=== PATIENT | female | born 1955 | race Caucasian/White ===

== ENCOUNTER → 2016-05-16 | Outpatient (CLI) | payer OTHER | END | disposition home or self-care (01) | LOC: DBWHC3 12:56 | PROVIDERS: ATTEND Family Medicine ==

== ENCOUNTER → 2016-05-17 | Outpatient (CLI) | payer OTHER ==
--- NOTE | 2016-05-23 09:17 | MM ---
Reason for exam: screening (asymptomatic). Last mammogram was performed 2 years and 3 months ago. History: Patient history of other cancer. Family history of breast cancer in maternal grandmother. Physical Findings: A clinical breast exam by your physician is recommended on an annual basis and results should be correlated with mammographic findings. MG 3D Screening Mammo W/Cad Bilateral CC and MLO view(s) were taken. Prior study comparison: February 10, 2014, mammogram, performed at [facility]. November 16, 2011, mammogram, performed at [facility]. The breast tissue is heterogeneously dense. This may lower the sensitivity of mammography. Benign calcifications. There is no discrete abnormality. No significant changes when compared with prior studies. ASSESSMENT: Benign, BI-RAD 2 RECOMMENDATION: Routine screening mammogram of both breasts in 1 year.
== END ==
LOC: RADMAMWWP 13:54 → MERGE 14:00 → EDBD 14:00
PROVIDERS: ATTEND Family Medicine
DX: Z12.31 Encounter for screening mammogram for malignant neoplasm of breast (principal)
CPT/HCPCS: 77063; G0202

== ENCOUNTER → 2017-06-13 | Outpatient (CLI) | payer BC ==
--- NOTE | 2017-06-13 18:32 | CONS ---
CONSULTATION REASON FOR CONSULTATION: Sleep apnea. This is a 62-year-old female patient with an established diagnosis of obstructive sleep apnea more than 10 years ago. Her sleep study was done at [facility]. She used to live in [place] and she used to see a sleep specialist out of [facility]. The patient relocated herself to the [place] area and is trying to establish herself with a physician in [place]. She has a Respironics CPAP unit which is set at a pressure of 8 cm of water. She is using a ComfortGel Blue nose mask. She is averaging 4 hours and 18 minutes of CPAP use every night. She is compliant and she wears it every night. Her machine is functional and she seems to be benefitting from the treatment, as the patient wakes up refreshed and alert during the day. She is currently retired. She goes to bed around 11 p.m. and wakes up at 7 a.m. in the morning. She is averaging around 7-1/2 hours of sleep per night. She does not have any major hypersomnia or sleepiness during the day. Montague score is 10. No recent weight gain or weight loss. She wakes up a few times in the middle of the night to urinate. Otherwise no other complaints for now. Her blood pressure was noted to be elevated; however, the patient denies having any history of blood pressure, nor does she take any anti-hypertensive medication. She has depression and neuropathy, for which she is on a combination of Wellbutrin and Neurontin. PAST MEDICAL HISTORY: 1. GRACE diagnosed back in 2005. The patient gets her CPAP supplies through [employer]. 2. Depression. 3. Peripheral neuropathy. 4. Obesity. PAST SURGICAL HISTORY: 1. Hysterectomy. 2. Appendectomy. DRUG ALLERGIES: NOT KNOWN. OUTPATIENT MEDICATION LIST: Outpatient medication list includes Wellbutrin and Neurontin. SOCIAL HISTORY: The patient is a nonsmoker. No history of alcoholism. No history of IV drugs. FAMILY HISTORY: Negative for sleep apnea. REVIEW OF SYSTEMS: Twelve-point review of systems was done. The positive findings are all mentioned above in the history of present illness. No snoring while on CPAP. No issues with insomnia. No grinding of the teeth. No sleepwalking. No dry mouth. The patient has eliminated her humidification chamber that is attached to her CPAP machine. No anxiety or panic attacks. No palpitation. No restlessness in the lower extremities. No sleeptalking. No anxiety. No sexual dysfunction. No claustrophobia. No sleep paralysis. No hallucinations. No cataplexy. No issues with anemia. No issues with fibromyalgia, stroke, epilepsy or seizure activity. No sinus disease. PHYSICAL EXAMINATION: BP is 193/86, pulse 88, respirations 16, temperature 98.0, saturation 98% on room air. Weight is 202. Height is 5 feet 1 inch. BMI 38.3. Montague score is 10. GENERAL APPEARANCE: Calm, comfortable. No acute distress. Head is atraumatic, normocephalic. NECK: Supple. There is no JVD. No goiter or neck mass. Mallampati class 3. LUNGS: Clear to auscultation. HEART: Heart sounds are regular rate and rhythm. Normal S1, S2. No S3, S4. No murmurs. ABDOMEN: Soft, nontender. No organomegaly. EXTREMITIES: No edema. No cyanosis or clubbing. NEUROLOGICAL: Awake and alert x3. There is no focal neurological deficit. PSYCHIATRIC: The patient has appropriate mood and affect. IMPRESSION: 1. Obstructive sleep apnea, currently on CPAP with a pressure of 8 cm of water, with excellent clinical response and compliance. Utilizing a ComfortGel nose mask. 2. Hypertension. Blood pressure is quite elevated. Rule out white coat effect. Needs to be followed up on an outpatient basis through her primary care physician. 3. Obesity with body mass index of 8.3. 4. Hypersomnia, improved while on CPAP therapy. 5. Depression. 6. Peripheral neuropathy. PLAN: 1. Encourage further weight loss. 2. Optimize sleep hygiene measures. 3. Offer this patient an AirFit N20 nose mask. 4. Continue using the current CPAP unit at the same level of pressure. 5. Implement good sleep hygiene measures. 6. Follow up with primary care physician regarding blood pressure. 7. Will contact me back should there be any issues with her sleep apnea treatment in the future; otherwise I will see her back in a year's time. MMODL / IJN: [id number] /
== END | disposition home or self-care (01) ==
LOC: SLEEP 16:04
PROVIDERS: ATTEND Internal Medicine Critical Care Medicine
DX: G47.33 Obstructive sleep apnea (adult) (pediatric) (principal); I10 Essential (primary) hypertension; E66.9 Obesity, unspecified; G47.10 Hypersomnia, unspecified; F32.9 Major depressive disorder, single episode, unspecified; G62.9 Polyneuropathy, unspecified; Z68.1 Body mass index [BMI] 19.9 or less, adult; Z79.899 Other long term (current) drug therapy; Z90.89 Acquired absence of other organs; Z90.710 Acquired absence of both cervix and uterus
CPT/HCPCS: 99211

== ENCOUNTER → 2017-07-11 | Outpatient (CLI) | payer BC ==
--- NOTE | 2017-07-12 10:37 | MM ---
Reason for exam: screening (asymptomatic). Last mammogram was performed 1 year and 2 months ago. History: Patient is postmenopausal and history of other cancer. Family history of breast cancer in maternal grandmother. Physical Findings: A clinical breast exam by your physician is recommended on an annual basis and results should be correlated with mammographic findings. MG Screening Mammo w CAD Bilateral CC and MLO view(s) were taken. Prior study comparison: May 17, 2016, bilateral MG 3d screening mammo w/cad. February 10, 2014, mammogram, performed at [facility]. The breast tissue is heterogeneously dense. This may lower the sensitivity of mammography. Stable benign calcifications. There is no discrete abnormality. No significant changes when compared with prior studies. ASSESSMENT: Benign, BI-RAD 2 RECOMMENDATION: Routine screening mammogram of both breasts in 1 year.
== END | disposition home or self-care (01) ==
LOC: RADMAMWWP 12:36
PROVIDERS: ATTEND Family Medicine
DX: Z12.31 Encounter for screening mammogram for malignant neoplasm of breast (principal)
CPT/HCPCS: 77067

== ENCOUNTER → 2017-08-21 | Outpatient (CLI) | payer BC ==
--- NOTE | 2017-08-22 10:20 | ECHOF ---
Referral Reason:R06.02 Shortness of breath MEASUREMENTS -------- HEIGHT: 137.2 cm WEIGHT: 90.7 kg BP: IVSd: 1.3 cm (0.6 - 1.1) LVIDd: 4.3 cm (3.9 - 5.3) LVPWd: 1.3 cm (0.6 - 1.1) IVSs: 1.6 cm LVIDs: 3.3 cm LVPWs: 1.6 cm LA Diam: 3.2 cm (2.7 - 3.8) LAESV Index (A-L): 27.93 ml/m Ao Diam: 3.2 cm (2.0 - 3.7) AV Cusp: 1.7 cm (1.5 - 2.6) LA Diam: 3.2 cm (2.7 - 3.8) MV EXCURSION: 21.518 mm (> 18.000) MV EF SLOPE: 76 mm/s (70 - 150) EPSS: 0.3 cm MV E Levi: 0.39 m/s MV DecT: 237 ms MV A Levi: 0.69 m/s MV E/A Ratio: 0.58 RAP: 5.00 mmHg RVSP: 14.73 mmHg FINDINGS -------- Sinus rhythm. This was a technically adequate study. The left ventricular size is normal. There is mild concentric left ventricular hypertrophy. Overa ll left ventricular systolic function is low-normal with, an EF between 50 - 55 %. The right ventricle is normal in size. The left atrial size is normal. Normal LA size by volume 22+/-6 ml/m2. The right atrial size is normal. The aortic valve is trileaflet, and appears structurally normal. No aortic stenosis or regurgitation. Mild mitral annular calcification present. Mild mitral regurgitation is present. Mild tricuspid regurgitation present. There is no evidence of pulmonary hypertension. The right v entricular systolic pressure, as measured by Doppler, is 14.73mmHg. There is no pulmonic regurgitation present. The aortic root size is normal. There is no pericardial effusion. CONCLUSIONS -------- 1. The left ventricular size is normal. 2. There is mild concentric left ventricular hypertrophy. 3. Overall left ventricular systolic function is low-normal with, an EF between 50 - 55 %. 4. The right ventricle is normal in size. 5. The left atrial size is normal. 6. The aortic valve is trileaflet, and appears structurally normal. No aortic stenosis or regurgitati on. 7. Mild mitral annular calcification present. 8. Mild mitral regurgitation is present. 9. Mild tricuspid regurgitation present. 10. There is no evidence of pulmonary hypertension. 11. The right ventricular systolic pressure, as measured by Doppler, is 14.73mmHg. 12. There is no pulmonic regurgitation present. 13. The aortic root size is normal. 14. There is no pericardial effusion. AUTOMOTIVE REFINISH TECHNICIAN: Belia Concepcion RDCS
== END ==
LOC: RADECHMAIN 14:49
PROVIDERS: ATTEND Family Medicine
DX: I08.1 Rheumatic disorders of both mitral and tricuspid valves (principal)
CPT/HCPCS: 93306

== ENCOUNTER → 2017-09-09 | Outpatient (CLI) | payer BC ==
--- NOTE | 2017-09-09 17:00 | XR ---
Sacroiliac joints HISTORY: Pain 3 views of the sacroiliac joints Degenerative disc changes are noted in the lower lumbar spine, there may be spinal curvature. Sacroil iac joints are intact, there is no ankylosis, resorption, or significant marginal spurring. Mild scle rosis present at the left sacroiliac joint greater than right. IMPRESSION: Suspect some stress changes.
--- NOTE | 2017-09-09 17:01 | XR ---
Lumbar spine HISTORY: Pain Correlation to sacroiliac joints same date Reviews of the lumbar spine There is a lumbar levoscoliosis centered at L4. There is multilevel spondylosis. Lumbar vertebral bod ies show preserved height. Vacuum phenomenon present at the intervertebral levels L2-3, L3-4, L4-5 an d L5-S1 with associated loss of disc height. There is multilevel spondylosis. Sclerosis present in th e posterior elements of the lower lumbar spine. Bone mineralization maintained. IMPRESSION: Degenerative disc disease, scoliosis, facet arthropathy.
== END | disposition home or self-care (01) ==
LOC: RADXRMAIN 10:18
PROVIDERS: ATTEND Family Medicine
DX: M51.36 Other intervertebral disc degeneration, lumbar region (principal); M46.96 Unspecified inflammatory spondylopathy, lumbar region; M41.9 Scoliosis, unspecified; M53.3 Sacrococcygeal disorders, not elsewhere classified
CPT/HCPCS: 72100; 72202

== ENCOUNTER → 2018-10-23 | Outpatient (CLI) | payer MEDICARE ==
--- NOTE | 2018-10-23 14:59 | PN ---
PROGRESS NOTE This is a 63-year-old female patient who was diagnosed having obstructive sleep apnea. Her original diagnosis was done in 2005 through [facility]. I never received a documentation and a confirming diagnosis and establishing its severity. The patient over the years and used a Respironics CPAP unit which is set at a pressure of 8 cm of water. Her last evaluation with me was approximately a year ago. On today's evaluation, the patient is coming in for followup. I see the compliance has gone down and the patient has been averaging around 2 hours and 12 minutes of CPAP use per night. She is using an Air Fit N20 nose mask. She has loss a considerable amount of weight, she used to weight 202 pounds and currently weighs 184. She does not feel that CPAP is making much of a difference and I think it is time for a re-evaluation to reestablish diagnosis and see if the patient is still in need for treatment. She still gets tired during the day. She goes to bed around 11 p.m., wakes up between 6 and 7 am in the morning. The patient wakes up a few times in the middle of the night and she is able to go back to sleep without any major difficulties. Occasional naps are still being taken. REVIEW OF SYSTEMS: A 14-point review of system was done. The patient is losing weight. She feels great. No angina, no palpitation, no CHF, no strokes or seizures. No cough or sputum production. No heartburn, no altered mentation. No evidence of motor vehicle accident because of feeling drowsy or sleepy. No insomnia, no grinding of the teeth. No restlessness in the lower extremities. PHYSICAL EXAMINATION: BP is 138/85, pulse is 70, respirations 16, temperature 97.7 saturation 98% on room air. Height is 5, 2, weight is 189, BMI is 33.6. GENERAL APPEARANCE: Calm, comfortable. HEAD: Atraumatic, normocephalic. NECK: Supple. No JVD. No goiter or neck mass. LUNGS: Diminished air sounds, otherwise clear. HEART: Sounds regular rate and rhythm. Normal S1, S2. No S3, S4. No murmurs. ABDOMEN: Soft, nontender. No organomegaly. EXTREMITIES: No edema. No cyanosis or clubbing. NEUROLOGIC: The patient shows no focal neurological deficits. PSYCHIATRIC: Negative for anxiety or depression. SKIN: Negative for wounds or ulceration. IMPRESSION: 1. Obstructive sleep apnea based on her previous diagnosis was established back in 2005. The patient has been suboptimal in her CPAP use and compliance has gone down without having much impact on her daytime symptoms. 2. Obesity with interval weight loss. Body mass index is down to 33.6, and weight is down to 184. 3. Depression. 4. Peripheral neuropathy. 5. History of obesity. PLAN: Will need to reestablish diagnosis. The patient will be given a home sleep study to be done to establish that the severity and the need for CPAP therapy and accordingly, will make further recommendations. Meanwhile, she will be encouraged to lose more weight. Optimize sleep hygiene measures and will continue to follow. MMODL / IJN: [id number] /
== END | disposition home or self-care (01) ==
LOC: SLEEP 13:35
PROVIDERS: ATTEND Internal Medicine Critical Care Medicine
DX: G47.33 Obstructive sleep apnea (adult) (pediatric) (principal); E66.9 Obesity, unspecified; F32.9 Major depressive disorder, single episode, unspecified; G62.9 Polyneuropathy, unspecified; Z68.33 Body mass index [BMI] 33.0-33.9, adult; Z99.89 Dependence on other enabling machines and devices

== ENCOUNTER → 2019-02-15 | Outpatient (CLI) | payer MEDICARE ==
--- NOTE | 2019-02-15 08:16 | MR ---
EXAMINATION TYPE: MR lumbar spine wo con DATE OF EXAM: 02/15/2019 8:04 AM COMPARISON: NONE HISTORY: Low back pain Multiplanar, MultiSpin echo imaging of the lumbar spine was performed. L1-L2: Severe disc desiccation. Posterior disc bulge. Hypertrophy ligamentum flavum and facet joint a rthropathy resulting in borderline to mild central stenosis. Bilateral foraminal encroachment. L2-L3: Severe disc desiccation. Posterior disc bulge. Hypertrophy ligamentum flavum and facet joint a rthropathy resulting in mild central stenosis. Bilateral foraminal encroachment. L3-L4: Severe disc desiccation. Posterior disc bulge. Hypertrophy ligamentum flavum and facet joint a rthropathy resulting in severe central stenosis. Bilateral foraminal encroachment. L4-L5: Severe disc desiccation. Posterior disc bulge. Hypertrophy ligamentum flavum and facet joint a rthropathy resulting in severe central stenosis. Bilateral foraminal encroachment. L5-S1: Severe disc desiccation. Posterior disc bulge. Hypertrophy ligamentum flavum and facet joint a rthropathy resulting in mild central stenosis. Bilateral foraminal encroachment. Lumbar segments are intact. No paraspinal masses are identified. Conus medullaris has a normal appe arance endplate sclerosis and bone marrow reconversion noted. Right renal cyst.. IMPRESSION: 1. Severe multilevel degenerative disc disease with multilevel central stenosis as outlined above.
== END | disposition home or self-care (01) ==
LOC: RADMRIMAIN 07:12
PROVIDERS: ATTEND Physical Medicine & Rehabilitation
DX: M48.061 Spinal stenosis, lumbar region without neurogenic claudication (principal); M48.07 Spinal stenosis, lumbosacral region; M51.36 Other intervertebral disc degeneration, lumbar region; Z85.828 Personal history of other malignant neoplasm of skin
CPT/HCPCS: 72148

== ENCOUNTER → 2019-03-19 | Outpatient (CLI) | payer MEDICARE ==
--- NOTE | 2019-03-21 10:41 | MM ---
Reason for exam: screening (asymptomatic). Last mammogram was performed 1 year and 8 months ago. History: Patient is postmenopausal and history of other cancer. Family history of breast cancer in maternal grandmother. Physical Findings: A clinical breast exam by your physician is recommended on an annual basis and results should be correlated with mammographic findings. MG 3D Screening Mammo W/Cad Bilateral CC and MLO view(s) were taken. XCCM view(s) were taken of the left breast. Prior study comparison: July 11, 2017, bilateral MG screening mammo w CAD. May 17, 2016, bilateral MG 3d screening mammo w/cad. There are scattered fibroglandular densities. No significant changes when compared with prior studies. ASSESSMENT: Benign, BI-RAD 2 RECOMMENDATION: Routine screening mammogram of both breasts in 1 year.
== END | disposition home or self-care (01) ==
LOC: RADMAMWWP 12:37
PROVIDERS: ATTEND Family Medicine
DX: Z12.39 Encounter for other screening for malignant neoplasm of breast (principal)
CPT/HCPCS: 77063; 77067

== ENCOUNTER → 2019-12-18 | Outpatient (CLI) | payer MEDICARE ==
[2019-12-18 08:34] LABS: Basophils % (A) 0 %; Eosinophils # (A) 0.3 k/uL (0-0.7); Eosinophils % (A) 3 %; HCT 42.5 % (34.0-46.0); HGB 13.6 gm/dL (11.4-16.0); Lymphocytes # (A) 2.3 k/uL (1.0-4.8); Lymphocytes % (A) 30 %; MCH 30.6 pg (25.0-35.0); MCHC 32.1 g/dL (31.0-37.0); MCV 95.3 fL (80.0-100.0); Mean Platelet Volume 6.7; Monocytes # (A) 0.4 k/uL (0-1.0); Monocytes % (A) 5 %; Neutrophils # (A) 4.5 k/uL (1.3-7.7); Neutrophils % (A) 59 %; Platelet Count 240 k/uL (150-450); RBC 4.46 m/uL (3.80-5.40); RDW 13.7 % (11.5-15.5); WBC 7.6 k/uL (3.8-10.6)
[2019-12-18 18:44] LABS: Albumin/Globulin Ratio 1.82 (1.60-3.17); Anion Gap 9.7 mmol/L (4.00-12.00); Calcium 9.2 mg/dL (8.7-10.3); Carbon Dioxide 21.3 mmol/L (21.6-31.8); Chol/HDL Ratio 4.55; Globulin 2.2 g/dL (1.6-3.3); LDL Cholesterol,Calculated 104.8 mg/dL (0.0-131.0); Non-African American GFR(CKD) 76.8 (60.0-200.0); Potassium 4.2 mmol/L (3.5-5.5); Total Bilirubin 0.3 mg/dL (0.2-1.2); Total Protein 6.2 g/dL (6.2-8.2); VLDL Calculation 30.2 mg/dL (5.00-40.00)
[2019-12-18 18:52] LABS: Hemoglobin A1C 5.9 % (4.0-6.0); T4, Free (Free Thyroxine) 1.2 ng/dL (0.80-1.80)
[2019-12-18 19:21] LABS: Cancer Antigen 125 16.8 U/mL (0.0-30.1)
== END | disposition home or self-care (01) ==
LOC: LABWHC1 07:44
PROVIDERS: ATTEND Family Medicine
DX: Z00.01 Encounter for general adult medical examination with abnormal findings (principal); M79.7 Fibromyalgia; R73.03 Prediabetes; G62.9 Polyneuropathy, unspecified; Z80.41 Family history of malignant neoplasm of ovary; E78.5 Hyperlipidemia, unspecified
CPT/HCPCS: 36415; 80053; 80061; 82306; 82550; 82607; 83036; 84439; 84443; 85025; 86304

== ENCOUNTER → 2019-12-24 | Outpatient (CLI) | payer MEDICARE ==
--- NOTE | 2019-12-24 21:46 | XR ---
EXAMINATION TYPE: XR chest 2V DATE OF EXAM: 12/24/2019 COMPARISON: None INDICATION: Presurgical clearance TECHNIQUE: Frontal and lateral views of the chest are obtained. FINDINGS: The heart size is normal. The pulmonary vasculature is somewhat prominent. Very mild increased lung markings along the inferior hilar regions.. IMPRESSION: 1. Correlate for mild volume overload.
== END | disposition home or self-care (01) ==
LOC: RADXRMAIN 12:02
PROVIDERS: ATTEND Family Medicine
DX: Z01.818 Encounter for other preprocedural examination (principal)
CPT/HCPCS: 71046

== ENCOUNTER 2020-01-14 06:23 | Day surgery (SDC) | payer MEDICARE ==
[2020-01-10 15:33] VITALS: BMI 29.2
[~2020-01-14 06:23] MED LIST: ACETAMINOPHEN TAB 500 MG TAB PO ONE; DEXAMETHASONE SOD PHOSPHATE 4 MG/ML 1 ML VIAL IV ONE; GABAPENTIN 300 MG CAP PO ONE; HYDROmorphone 0.5 MG/0.5 ML SYRINGE IVP PRN; MELOXICAM 7.5 MG TAB PO ONE; MIDAZOLAM 2 MG/2 ML VIAL IV PRN; ONDANSETRON 4 MG/2 ML VIAL IVP ONE; ROPIVACAINE 246.25 MG, EPINEPHrine 0.5 MG, KETOROLAC 30 MG, cloNIDine HCL/PF 80 MCG, WA... MISCELLANE ONE; TRANEXAMIC ACID 1,000 MG in SODIUM CHLORIDE 0.9% 100 ML IVPB ONE
[2020-01-14] MEDS ORDERED: LIDOCAINE 1% (10MG/ML) FOR IV START INTRADERMA ONE (07:30)
[2020-01-14] MEDS: LACTATED RINGERS 1,000 ML IV SCH (07:30)
[2020-01-14] MEDS ORDERED: ROPIVACAINE 0.2%-NS ON-Q PUMP 1,090 MG, EMPTY PAIN BALL 1 EACH MISCELLANE PRN (08:50)
[2020-01-14] MEDS ORDERED: SODIUM CHLORIDE 0.9% 100 ML BAG ONE (08:51)
[2020-01-14] MEDS ORDERED: PROPOFOL 10 MG/ML 20 ML VIAL IV ONE (08:51)
[2020-01-14] MEDS ORDERED: PHENYLEPHRINE-0.9% NACL SYG 1 MG/10 ML SYRINGE ONE (08:51)
[2020-01-14] MEDS ORDERED: TRANEXAMIC ACID 1,000 MG/10 ML VIAL ONE (08:51)
[2020-01-14] MEDS ORDERED: MIDAZOLAM 2 MG/2 ML VIAL ONE (08:51)
[2020-01-14] MEDS ORDERED: fentaNYL (PF) 50 MCG/ML 2 ML AMP ONE (08:51)
--- NOTE | 2020-01-14 08:54 | P.ANPRN ---
Procedure Note - Anesthesia - Nerve Block Performed Left Adductor Canal Time Out Performed: Yes (08:04) Date of Procedure: 01/14/20 Procedure Start Time: Procedure Stop Time: Location of Patient: PreOp Indication: Acute Post-Operative Pain, Requested by Surgeon (Dr Marquise Chu) Sedation Type: Sedate with meaningful contact maintained Preparation: Sterile Prep, Sterile Dressing Position: Supine Catheter: Indwelling Needle Types: Pajunk Needle Gauge: 21 Ultrasound used to visualize needle placement: Yes Ultrasound used to observe medication spread: Yes Injectate: 0.5% Ropivacaine (see comment for volume) (20cc) Blood Aspirated: No Pain Paresthesia on Injection Noted: No Resistance on Injection: Normal Image Stored and Saved: Yes Events: Uneventful and Well Tolerated
[2020-01-14] MEDS ORDERED: ceFAZolin 3,000 MG in SODIUM CHLORIDE 0.9% IRRIGATIO 3,000 ML IRRIGATION ONE (08:56)
--- NOTE | 2020-01-14 10:16 | P.OP ---
Date of Procedure: 01/14/20 Preoperative Diagnosis: Severe osteoarthritis left knee Postoperative Diagnosis: Severe osteoarthritis left knee Procedure(s) Performed: Left total knee arthroplasty utilizing [employer] patient specific guides Implants: Bass and Nephew Cruciate Retaining Journey II CR Oxinium Femoral Component size 5, left Bass & Nephew Journey Nonporous Tibial Baseplate size 3, left Bass & Nephew Journey II DEEP DISHED, XLPE Articular Insert, 11 mm, size 3-4 Bass & Nephew Brenna II Resurfacing Patellar Component, Oval, 32 mm All components were cemented using Palacose R bone cement. [employer] patient specific guides The articulation is Oxinium on polyethylene. Anesthesia: spinal Surgeon: Marquise Chu Hot Repairman #1: Keli Askew Estimated Blood Loss (ml): 25 Pathology: other (Bone and cartilage) Condition: stable Disposition: PACU Indications for Procedure: After failure of conservative treatment we discussed the surgical and nonsurgical treatment options at length. Patient wishes to proceed with a total knee arthroplasty. Complications specific to this procedure were discussed at length, including but not limited to infection, bleeding, stiffness, and nerve injury. Covid-19 was also discussed at length with the patient, and they are aware of the current policies and procedures. The patient was given the option of delaying surgery, but they elect to proceed knowing these risks. Patient is aware of all these complications and informed consent was obtained Operative Findings: The operative findings are consistent with severe osteoarthritis of the left knee Description of Procedure: Patient was seen in the preoperative area consent was reviewed and operative site was marked with a skin marker. An adductor canal pain catheter was placed by anesthesia in the preoperative area. Patient was then brought to the operating room and given preoperative antibiotics intravenously. A spinal anesthetic was administered by the anesthesia department. A tourniquet was placed on the upper thigh and the lower extremity was prepped and draped in usual sterile fashion. A gram of transexamic acid was given. A universal timeout was then performed which confirmed the patient's name, surgical site, ALLERGIES, and consent. The lower extremity was then exsanguinated and tourniquet was inflated to 250 mmHg. A standard and anterior midline approach to the knee was performed. The skin and subcutaneous tissue was dissected down to the patellar tendon. A medial parapatellar arthrotomy was then performed. The knee was then extended, the patellar was everted, and the knee was again flexed. Anterior horns of both menisci were excised, and a release was performed to the posterior medial aspect of the knee. On gross visual inspection, there was complete loss of articular cartilage in the medial and patellofemoral joint spaces. There was also significant cartilage damage in the lateral compartment. There were multiple periarticular osteophytes. The patient specific guide was placed on the distal femur, and pinned in place. Using the patient specific guide, the distal femoral cut was performed. The cutting block was then removed and the cut was checked for flatness. The appropriate 5-in-1 cutting block was then pinned in place through the holes that were drilled through the patient specific guide. The anterior condyles were cut without notching. The posterior and chamfer cuts were performed while protecting the collateral ligaments. The cutting block was then removed. Attention was then directed to the tibia. The remaining ACL was removed with a Ronguer, and the tibia was then gently subluxed forward with a large bent knee retractor. Any remaining menisci was excised. The posterior lateral corner was cauterized in order to cauterize the lateral geniculate artery. The patient specific guide for the tibia was then placed and was held in place with pins. Pinholes were then placed for rotation of the tibial component as well. Proximal tibia was then cut and sized. Next trials were then placed with the appropriate-sized insert. The knee was able to fully extend and flex to 130 and was stable throughout all range of motion. The knee was then extended, patella everted. Patella was then measured, and then using an osteotomy guide, the patella was cut at the appropriate level. The patella was then measured and drilled and the patella trial was then placed. The knee was then taken through range of motion with the patella trial and the patella tracked normally. The knee was then extended patella trial was then removed and the patella was everted. Knee was then flexed and lug holes were drilled through the femoral trial and the femoral trial was then removed. The tibial was then exposed, and the tibial broach guide was then pinned in place after it was set for the appropriate rotation to allow for the most coverage without overhang. The tibia was then reamed and broached. The cut surfaces of bone were then irrigated with pulsatile lavage. The posterior structures were injected with the ropivacaine solution. The knee was also irrigated with Irrisept solution. The components were then opened, the cement was mixed, and the components were then cemented in place. The cement was allowed to harden with the knee in full extension. While the cement was hardening, the remaining soft tissues were then injected with a ropivacaine solution, which consisted of 246.25 mg of ropivacaine, 0.5 mg of epinephrine, 30 mg of Toradol, 80 g of clonidine, and 48.45 mL of sterile water, for a total of 100 mL of fluid injected. After the cemented hardened. The tourniquet was released, and hemostasis was obtained. A second gram of transexamic acid was given. The knee was again irrigated. The knee was again taken through range of motion and found to be stable throughout all range of motion of 0-130, and the patella tracked normally. The fascia was then closed with #2 strata fix suture. The subcutaneous tissue was closed with 3-0 Vicryl and 3-0 strata fix. Dermabond glue was used for the skin and placed with the knee in flexion. The patient was placed in a sterile silver dressing. Patient was then transferred to recovery room in stable condition. The respiratory therapy assistant JOJO Newman was required due the complexity surgery and the need for a skilled surgical instrument maker. She assisted in positioning, draping, retraction, and closure of the wound.
[2020-01-14] MEDS ORDERED: LACTATED RINGERS 1,000 ML IV ONE (10:24)
[2020-01-14] MEDS ORDERED: HYDROmorphone 0.5 MG/0.5 ML SYRINGE IVP PRN ×3 (10:38)
[2020-01-14] MEDS ORDERED: NALOXONE 0.4 MG/ML 1 ML VIAL IV PRN (10:38)
[2020-01-14] MEDS ORDERED: ONDANSETRON 4 MG/2 ML VIAL IVP PRN (10:38)
[2020-01-14] MEDS ORDERED: MAGNESIUM HYDROXIDE 2,400 MG/10 ML CUP PO PRN (10:38)
[2020-01-14] MEDS ORDERED: bisacodyL 10 MG SUPP RECTAL PRN (10:38)
[2020-01-14] MEDS ORDERED: NA PHOS,M-B/NA PHOS,DI-BA 133 ML ENEMA RECTAL PRN (10:38)
[2020-01-14] MEDS ORDERED: diazePAM 5 MG TAB PO PRN (10:38)
[2020-01-14] MEDS ORDERED: HYDROcodone/APAP 5-325MG 1 EACH TAB PO PRN (10:38)
--- NOTE | 2020-01-14 11:01 | XR ---
EXAMINATION TYPE: XR knee limited LT DATE OF EXAM: 01/14/2020 CLINICAL HISTORY: Left knee pain and arthritis status post total knee replacement. TECHNIQUE: Portable AP and crosstable lateral views of the left knee are obtained immediately postop eratively. COMPARISON: None FINDINGS: Metallic hardware from total left knee arthroplasty is seen and appears satisfactory in al ignment and position. There is evidence of recent surgery with diffuse subcutaneous gas and soft ti ssue swelling noted. IMPRESSION: METALLIC HARDWARE FROM TOTAL LEFT KNEE ARTHROPLASTY IS SATISFACTORY IN ALIGNMENT.
[2020-01-14] MEDS: HYDROcodone/APAP 5-325MG 1 EACH TAB PO PRN (16:46)
[2020-01-14] MEDS: SODIUM CHLORIDE 0.9% 1,000 ML IV SCH (18:57)
--- NOTE | 2020-01-14 19:23 | P.CONS ---
History of Present Illness - Reason for Consult Consult date: 01/14/20 Medical management Requesting physician: Marquise Chu - Chief Complaint Status post left total knee arthroplasty, hypertension, depression, neuropa - History of Present Illness 64-year-old female one of Dr. Leyva's patient with past medical history of severe osteoarthritis, depression, hypertension, obstructive sleep apnea chronic neuropathy who has been suffering from increased arthritis of the left knee for the last few years become much worse last few month patient was seen Dr. Chu and schedule elective left total knee arthroplasty which was done today successfully with no major complication. Patient was admitted to the floor afterward home meds were started pain control with oral hydrocodone along with pain management system and patient is doing well with it no major abnormality such as nausea and vomiting pain is well controlled and patient is not having any significant shortness of breath. Review of Systems CONSTITUTIONAL: Well-developed no acute respiratory distress. EYES: No icterus sclerae, no conjunctivitis. EARS, NOSE, MOUTH, THROAT, and FACE: No sore throat, lymphadenopathy, carotid bruits or deformity. RESPIRATORY: No SOB cough or wheezes. CARDIOVASCULAR: No CP, Palpitation, PND, Orthopnea, or angina. GASTROINTESTINAL: No Abd pain, Nausea or vomiting, no Diarrhea or constipation, No GI Bleed, no distention or masses. GENITOURINARY: Negative for Hematuria or UTI, no kidney stones. INTEGUMENT/BREAST: Negative for any muscular injury with mild osteoarthritis.. HEMATOLOGIC/LYMPHATIC: Negative for bleed or purpura. MUSCULOSKELTAL: Negative for Myalgia or arthralgia. NEURLOGICAL: No LOC, Sz or syncope, blurred vision dizziness or abnormality.. BEHAVIORAL/PSYCH: Negative. ENDOCRINE: Negative. Social history: Patient does not smoke, nausea code abuse no drug use. She is and retired live alone. Family history: Father at age 87 from diabetes complication, mother dying at age 87 from hip fracture with complication, patient had 3 siblings one from cirrhosis of the liver and other 2 are living and well also patient has 3 children with no major medical problem. Past Medical History Past Medical History: Cancer, Hypertension, Osteoarthritis (OA) Additional Past Medical History / Comment(s): BASAL CELL CA , History of Any Multi-Drug Resistant Organisms: None Reported Past Surgical History: Appendectomy, Hysterectomy Additional Past Surgical History / Comment(s): LESION REMOVED (CANCER) - FACE Past Anesthesia/Blood Transfusion Reactions: Motion Sickness Past Psychological History: Depression Smoking Status: Never smoker Past Alcohol Use History: Occasional Past Drug Use History: None Reported - Past Family History Mother Family Medical History: No Reported History Medications and Allergies Home Medications Medication Instructions Recorded Confirmed Type Acetaminophen [Tylenol] 1,000 mg PO Q6H PRN 01/10/20 01/10/20 History Gabapentin [Neurontin] 300 mg PO BID 01/10/20 01/10/20 History Lisinopril [Zestril] 10 mg PO DAILY 01/10/20 01/10/20 History buPROPion XL [Wellbutrin XL] 300 mg PO DAILY 01/10/20 01/10/20 History Allergies Allergy/AdvReac Type Severity Reaction Status Date / Time No Known Allergies Allergy Verified 01/14/20 07:08 Physical Exam Vitals: Vital Signs Temp Pulse Pulse Pulse Resp BP BP 01/14/20 15:38 97.6 F 62 16 107/62 01/14/20 15:00 97.6 F 62 16 107/62 01/14/20 13:54 97.9 F 67 16 127/83 01/14/20 13:00 69 18 106/68 01/14/20 12:30 60 16 95/67 01/14/20 12:00 60 16 97/55 01/14/20 11:25 64 16 99/59 01/14/20 11:05 62 16 97/56 01/14/20 10:50 66 16 103/63 01/14/20 10:35 97.3 F L 63 18 121/61 01/14/20 08:25 64 16 113/59 01/14/20 07:14 97.5 F L 72 16 119/68 Pulse Ox 01/14/20 15:38 98 01/14/20 15:00 98 01/14/20 13:54 97 01/14/20 13:00 100 01/14/20 12:30 100 01/14/20 12:00 100 01/14/20 11:25 99 01/14/20 11:05 96 01/14/20 10:50 97 01/14/20 10:35 96 01/14/20 08:25 98 01/14/20 07:14 96 Intake and Output 01/14/20 01/14/20 01/14/20 06:59 14:59 22:59 Intake Total 1451 Output Total 25 Balance 1426 Intake: IV 1451 Output: Estimated Blood Loss 25 Other: Weight 80.6 kg General Appearance: Alert, cooperative, no distress, appears stated age. Neck HEENT: Supple, no lymphadenopathy, no thyroid enlargement, no carotid bruits. Lungs: Clear to auscultation without crackles or wheezes no rhonchi, no deformity. Chest Wall: Chest wall normal expansion with deep inspiration no tenderness and no deformity was found on exam, no costochondral pain or discomfort. Heart: Regular rate and rhythm, S1, S2 normal, no murmur, rub or gallop. Back: Symmetric, no curvature, ROM normal, no CVA tenderness. Abdomen: Soft, non-tender, bowel sounds active all four quadrants, no masses, no organomegaly. Extremities: Extremities normal, atraumatic, no cyanosis or edema. Left knee incision looks fine with no hematoma bleeding or thigh tenderness. Pulses: 2+ and symmetric. Skin: Skin color, texture, tugor normal, no rashes or lesions. Neurologic: Alert oriented x3 cranial nerves II through XII intact, no motor deficit, no abnormal balance or gait. Assessment and Plan Assessment: 1 post left total knee arthroplasty: Successful surgery so far continue pain management, continue to watch patient hemodynamic status, all home meds were started patient will be on GI DVT and pulmonary prophylaxis protocol. 2 hypertension: Patient's blood pressure is well controlled on lisinopril 10 mg a day continue medication. 3 obstructive sleep apnea: Patient is on CPAP doing well. 4 chronic neuropathy: Patient has been doing well on gabapentin resume medication. 5 GI prophylaxis: Patient be on Pepcid 20 mg daily. 6 DVT prophylaxis: Patient will be on aspirin per orthopedic protocol. CODE STATUS: Full code. Dr. Chu thank you very much for the consult if I can be any further help to please let me know.
[2020-01-14] MEDS: ASPIRIN 325 MG TAB PO SCH (20:12)
[2020-01-14] MEDS: GABAPENTIN 300 MG CAP PO SCH (20:12)
[2020-01-14] MEDS ORDERED: SENNOSIDES-DOCUSATE SODIUM 1 EACH TAB PO SCH (21:00)
[2020-01-15] MEDS: HYDROcodone/APAP 5-325MG 1 EACH TAB PO PRN ×2 (00:05→06:16)
[2020-01-15] MEDS: SODIUM CHLORIDE 0.9% 1,000 ML IV SCH ×2 (00:10→11:20)
[2020-01-15] MEDS: hydrOXYzine pamoate 25 MG CAP PO PRN ×2 (02:53→07:15)
[2020-01-15] MEDS: LACTATED RINGERS 1,000 ML IV SCH (04:40)
[2020-01-15 06:10] LABS: Basophils % (A) 0 %; Eosinophils % (A) 0 %; HCT 38.8 % (34.0-46.0); HGB 12.3 gm/dL (11.4-16.0); Hypochromasia Slight; Lymphocytes # (A) 1.4 k/uL (1.0-4.8); Lymphocytes % (A) 15 %; MCH 31.1 pg (25.0-35.0); MCHC 31.5 g/dL (31.0-37.0); MCV 98.4 fL (80.0-100.0); Mean Platelet Volume 7.1; Monocytes # (A) 0.5 k/uL (0-1.0); Monocytes % (A) 6 %; Neutrophils # (A) 7.3 k/uL (1.3-7.7); Neutrophils % (A) 78 %; Platelet Count 172 k/uL (150-450); RBC 3.95 m/uL (3.80-5.40); RDW 13.5 % (11.5-15.5); WBC 9.5 k/uL (3.8-10.6)
--- NOTE | 2020-01-15 06:14 | P.PN ---
Progress Note - Text The patient is status post left adductor canal catheter placement. The catheter was placed for postoperative pain control, status post total left arthroplasty. Ropivacaine 0.2% is infusing at 8 mLs per hour. The patient has no complaints of left lower extremity numbness or weakness. Patient's VAS score is 56-10. The patient did receive some supplemental pain medicine this past evening. Assessment: Patient's adductor canal catheter is in place and working appropriately. Plan: continue infusion and adjust it as needed.
[2020-01-15] MEDS: GABAPENTIN 300 MG CAP PO SCH (07:14)
[2020-01-15] MEDS: ASPIRIN 325 MG TAB PO SCH (07:15)
[2020-01-15 07:27] VITALS: BP 86/46; PULSE 67; RESP 16; TEMP 97.8
[2020-01-15] MEDS ORDERED: FAMOTIDINE 20 MG TAB PO SCH (09:00)
[2020-01-15] MEDS ORDERED: buPROPion XL 300 MG TAB.ER.24H PO SCH (09:00)
[2020-01-15] MEDS ORDERED: MELOXICAM 7.5 MG TAB PO SCH (09:00)
[2020-01-15] MEDS ORDERED: lisinopriL 10 MG TAB PO SCH (09:00)
[2020-01-15] MEDS ORDERED: HYDROcodone/APAP 7.5-325MG 1 EACH TAB PO PRN ×2 (09:11)
[2020-01-15] MEDS ORDERED: KETOROLAC 15 MG/ML 1 ML VIAL IVP PRN (09:12)
--- NOTE | 2020-01-15 09:18 | P.DS ---
Providers Expected date of discharge: 01/15/20 Attending physician: Marquise Chu Consults: 01/14/20 10:38 Consult Physician Routine Consulting Provider: Deanna Leyva Consult Reason/Comments: medical management Do you want consulting provider notified?: Yes Primary care physician: Deanna Leyva - Discharge Diagnosis(es) (1) Osteoarthritis of left knee Current Visit: Yes Status: Acute (2) S/P total knee arthroplasty Current Visit: Yes Status: Acute Hospital Course: This is a 64-year-old female with known history of degenerative arthritis of the left knee. The patient presented for evaluation as an outpatient. After discussion and consideration patient elects to proceed with total knee arthroplasty. The patient is seen preoperatively by Dr. Chu and medically cleared for surgery by their primary care physician. Patient is admitted to [facility] on 01/14/2020 for total knee arthroplasty. The procedure is performed without complication or sequelae. The patient is doing well postoperatively. Labs and vital signs are stable on day of discharge. On day of discharge patient's knee incision is healing well. There is minimal erythema. There is no drainage noted at this time. There is minimal soft tissue swelling to the knee. Patient has full foot and ankle motion without difficulty or pain. Calf is soft and nontender to palpation. Neurovascular status to the left lower extremity is intact. Patient is discharged home in good condition. Opioid start talking form is reviewed and signed. Please see med rec for accurate list of home medications. Plan - Discharge Summary Discharge Rx Participant: Yes New Discharge Prescriptions: New Aspirin 325 mg PO BID tab Aspirin 325 mg PO BID #60 tab HYDROcodone/APAP 7.5-325MG [[place] 7.5-325] 1 - 2 tab PO Q6H PRN #32 tab PRN Reason: Pain Sennosides [Senokot] 2 tab PO DAILY PRN #60 tablet PRN Reason: Constipation Ketorolac [Toradol] 10 mg PO Q6HR #8 tab Continue Gabapentin [Neurontin] 300 mg PO BID buPROPion XL [Wellbutrin XL] 300 mg PO DAILY Acetaminophen [Tylenol] 1,000 mg PO Q6H PRN PRN Reason: Pain Changed Lisinopril [Zestril] 10 mg PO HS #0 Discharge Medication List Acetaminophen [Tylenol] 1,000 mg PO Q6H PRN 10/30/20 [History] Gabapentin [Neurontin] 300 mg PO BID 01/10/20 [History] buPROPion XL [Wellbutrin XL] 300 mg PO DAILY 01/10/20 [History] Aspirin 325 mg PO BID tab 01/15/20 [Rx] Aspirin 325 mg PO BID #60 tab 01/15/20 [Rx] HYDROcodone/APAP 7.5-325MG [[place] 7.5-325] 1 - 2 tab PO Q6H PRN #32 tab 01/15/20 [Rx] Ketorolac [Toradol] 10 mg PO Q6HR #8 tab 01/15/20 [Rx] Lisinopril [Zestril] 10 mg PO HS #0 01/15/20 [Rx] Sennosides [Senokot] 2 tab PO DAILY PRN #60 tablet 01/15/20 [Rx] Follow up Appointment(s)/Referral(s): Marquise Chu DO [Doctor of Osteopathic Medicine] - 2 Weeks Ambulatory/Diagnostic Orders: Continuous Passive Motion (CPM) Machine [DME.AMB1] Time Frame: 3 Weeks, Location: None Selected Activity/Diet/Wound Care/Special Instructions: Weightbearing as tolerated with a walker. CPM 5-6h daily. Leave dressing intact. May be removed by home care nurse or by patient in 10 days. May shower with dressing on. Recommend use of compression stockings daily until follow up to help prevent swelling and blood clots. May remove at night before sleeping. Please take aspirin 325mg twice daily for 30 days to prevent blood clots. Please follow up with [facility] and call with any questions or concerns, . Discharge Disposition: HOME WITH HOME HEALTH SERVICES
--- NOTE | 2020-01-15 10:05 | P.PN ---
Subjective 64-year-old female one of Dr. Leyva's patient with past medical history of severe osteoarthritis, depression, hypertension, obstructive sleep apnea chronic neuropathy who has been suffering from increased arthritis of the left knee for the last few years become much worse last few month patient was seen Dr. Chu and schedule elective left total knee arthroplasty which was done today successfully with no major complication. Patient was admitted to the floor afterward home meds were started pain control with oral hydrocodone along with pain management system and patient is doing well with it no major abnormality such as nausea and vomiting pain is well controlled and patient is not having any significant shortness of breath. 01/14: Patient is status post left total knee arthroplasty. She is doing well she continues on GI and DVT prophylaxis. Vital signs are stable, temperature 98.0, pulse 70, rest rate of 15, blood pressure 98/61, oxygen 95% on room air. She denies any shortness of breath, chest pain, calf pain. Plans for be d ischarged home today. Objective - Vital Signs Vital signs: Vital Signs Temp 97.8 F 01/15/20 07:00 Pulse 67 01/15/20 07:00 Resp 16 01/15/20 07:00 BP 86/46 01/15/20 07:00 Pulse Ox 90 L 01/15/20 07:00 Intake & Output 01/14/20 01/15/20 01/15/20 18:59 06:59 18:59 Intake Total 1451 Output Total 25 Balance 1426 Weight 80.6 kg Intake: IV 1451 Output: Estimated Blood Loss 25 Other: Voiding Method Toilet # Voids 1 - Exam CONSTITUTIONAL: Well-developed no acute respiratory distress EYES: No icterus sclerae, no conjunctivitis EARS, NOSE, MOUTH, THROAT, and FACE: No sore throat, lymphadenopathy, carotid bruits or deformity RESPIRATORY: No SOB cough or wheezes CARDIOVASCULAR: No CP, Palpitation, PND, Orthopnea, or angina GASTROINTESTINAL: No Abd pain, Nausea or vomiting, no Diarrhea or constipation, No GI Bleed, no distention or masses GENITOURINARY: Negative for Hematuria or UTI, no kidney stones. INTEGUMENT/BREAST: Negative for any muscular injury with mild osteoarthritis HEMATOLOGIC/LYMPHATIC: Negative for bleed or purpura MUSCULOSKELTAL: Negative for Myalgia or arthralgia NEURLOGICAL: No LOC, Sz or syncope, blurred vision dizziness or abnormality BEHAVIORAL/PSYCH: Negative ENDOCRINE: Negative - Labs CBC & Chem 7: 01/15/20 05:53 Assessment and Plan Plan: 1 post left total knee arthroplasty: Successful surgery so far continue pain management, continue to watch patient hemodynamic status, all home meds were started patient will be on GI DVT and pulmonary prophylaxis protocol. 2 hypertension: Patient's blood pressure is well controlled on lisinopril 10 mg a day continue medication. 3 obstructive sleep apnea: Patient is on CPAP doing well. 4 chronic neuropathy: Patient has been doing well on gabapentin resume me dication. 5 GI prophylaxis: Patient be on Pepcid 20 mg daily. 6 DVT prophylaxis: Patient will be on aspirin per orthopedic protocol. The above impression and plan of care have been discussed and directed by signing physician. Claudine Garza nurse practitioner acting as scribe for signing physician.
== END 2020-01-15 15:04 | disposition home health service (06) ==
LOC: OR 06:23 → 4SSUR 10:32 → OR 01-15 15:04
PROVIDERS: ATTEND Orthopaedic Surgery
DX: M17.12 Unilateral primary osteoarthritis, left knee (principal); M25.762 Osteophyte, left knee; I10 Essential (primary) hypertension; F32.9 Major depressive disorder, single episode, unspecified; H91.90 Unspecified hearing loss, unspecified ear; G47.33 Obstructive sleep apnea (adult) (pediatric); G62.89 Other specified polyneuropathies; Z90.710 Acquired absence of both cervix and uterus; Z79.899 Other long term (current) drug therapy; Z79.1 Long term (current) use of non-steroidal anti-inflammatories (NSAID); Z98.890 Other specified postprocedural states; Z98.41 Cataract extraction status, right eye; Z98.42 Cataract extraction status, left eye; Z85.828 Personal history of other malignant neoplasm of skin; Z99.89 Dependence on other enabling machines and devices; Z83.3 Family history of diabetes mellitus; Z82.49 Family history of ischemic heart disease and other diseases of the circulatory system
CPT/HCPCS: 97161; 64448; 76942; 85025; 88300; 73560; 27447; C1713; C1776; J2250; J0171; J1100; J0690 ×3; J2405; J3010; J1885 ×2; J2795 ×2; J2370; J2704; J0735

== ENCOUNTER → 2020-01-27 | Outpatient (CLI) | payer MEDICARE ==
[2020-01-27 14:34] VITALS: BP 131/89; PULSE 92; RESP 16; TEMP 97.3
--- NOTE | 2020-01-27 14:48 | P.PAINCN ---
History of Present Illness - Reason for Consult Consult date: 01/27/20 - History of Present Illness This is a 64-year-old patient who was a patient of Dr. Phillips. She has a long-standing history of low back pain. Was seeing Dr. Phillips who performed a bilateral L3 to L5 U frequency ablation which provided 8090% relief for about 6 months. Her pain is located in her low back described as a 9 out of 10 involving her bilateral buttocks and proximal thighs. Pain does not really radiate beyond her knees. Pain is worse in the morning or she reports significant stiffness and getting out of bed. However sitting up and moving around does help with the pain. Walking around for too long or standing for too long does make her pain worse. Of note she did just have a knee replacement this month. She is interested in repeating her radiofrequency ablations of the helped significantly in the past. In regards to management as mentioned above she has had radiofrequency ablations of the lumbar spine which provided significant relief. She is also to caudal epidural steroid injection in the past which only gave her 25% relief. She is currently taking gabapentin 300 mg 2 times a day as well as Tylenol as needed. Patient denies adverse drug effects from medications. Patient also denies new- onset weakness, bowel/bladder incontinence, or any other signs or symptoms of cauda equina syndrome. There are no signs of acute intoxication, and no indications of medication diversion or overuse. Physical exam: Vital Signs: Reviewed in EMR GENERAL: Obese, in no acute distress PSYCH: Mood and affect is appropriate. Awake, alert, and oriented SKIN: Skin color, texture, turgor normal, no rashes or lesions HEENT: Normocephalic, atraumatic. EOM intact CV: No pedal edema RESP: Respirations are unlabored, no audible wheezing GI: Abdomen non-distended MUSCULOSKELETAL: Bilateral upper and lower extremity strength is normal and symmetric. No atrophy or tone abnormalities are noted. Lumbar spine: Straight leg raising in the sitting position is negative for radicular pain. There is pain to palpation over the lumbar spine and paraspinous muscles. positive for pain with facet loading and back extension/rotation. Decreased range of motion without pain reproduction Buttocks: No pain to palpation over the PSIS, Marcus test is positive for low back pain Extremities: Peripheral joint ROM is full and pain free without obvious instability or laxity in all four extremities. No edema or skin discolorations noted. Gait: Gait is normal NEUR: Bilateral upper and lower extremity coordination and muscle stretch reflexes are physiologic and symmetric. Negative clonus. No loss of sensation is noted. Cranial nerves are grossly intact. Imaging: L1-2 and L2-L3: Severe disc desiccation. Posterior disc bulge. Hypertrophic ligamentum flavum and facet arthropathy resulting in mild central canal stenosis. Bilateral neural foraminal stenosis. L3-L4 and L4-L5. Severe disc desiccation. Posterior disc bulge. Hypertrophic ligamentum flavum and facet joint arthropathy resulting in severe central canal stenosis. L5-S1: Severe disc desiccation. Posterior disc bulge. Hypertrophic ligamentum flavum and facet joint arthropathy resulting in mild central canal stenosis. Assessment: 1. Lumbar facet artrhopathy Plan: 1. Explanation: Diagnoses, prognoses, and multiple treatment options including but not limited to physical therapy, interventional therapies, medication management and surgery were discussed with the patient and all questions were answered to the patient's satisfaction. 2. Investigations: none 3. Counseling: The patient was counseled for 3 minutes on SMOKING CESSATION, BODY MASS INDEX, EXERCISE. Specifically, the patient was instructed regarding the importance of smoking cessation, weight control, and exercise in the context of both chronic pain and overall health. 4. Procedures: Proceed with bilateral L3-L4 and L4-L5 radiofrequency ablation 5. Consultations: none 6. Medications: None 7. Disposition: for procedure Medications and Allergies Home Medications Medication Instructions Recorded Confirmed Type Acetaminophen [Tylenol] 1,000 mg PO Q6H PRN 01/10/20 01/27/20 History Gabapentin [Neurontin] 300 mg PO BID 01/10/20 01/27/20 History buPROPion XL [Wellbutrin XL] 300 mg PO DAILY 01/10/20 01/27/20 History Aspirin 325 mg PO BID #60 tab 01/15/20 01/27/20 Rx Lisinopril [Zestril] 10 mg PO HS #0 01/15/20 01/27/20 Rx Ibuprofen 800 mg PO Q12HR 01/27/20 01/27/20 History Allergies Allergy/AdvReac Type Severity Reaction Status Date / Time No Known Allergies Allergy Verified 01/27/20 14:17 Physical Exam Vitals: Intake and Output 01/26/20 01/27/20 01/27/20 22:59 06:59 14:59 Other: Weight 77.111 kg PQRS Measure Charge Sheet Home Medications: Ambulatory Orders Acetaminophen [Tylenol] 1,000 mg PO Q6H PRN 01/10/20 Gabapentin [Neurontin] 300 mg PO BID 01/10/20 buPROPion XL [Wellbutrin XL] 300 mg PO DAILY 01/10/20 Aspirin 325 mg PO BID #60 tab 01/15/20 Lisinopril [Zestril] 10 mg PO HS #0 01/15/20 Ibuprofen 800 mg PO Q12HR 01/27/20
== END | disposition home or self-care (01) ==
LOC: PNWHC3 14:05
PROVIDERS: ATTEND Anesthesiology
DX: M47.816 Spondylosis without myelopathy or radiculopathy, lumbar region (principal); Z79.899 Other long term (current) drug therapy; Z79.891 Long term (current) use of opiate analgesic; Z79.82 Long term (current) use of aspirin
CPT/HCPCS: 99211

== ENCOUNTER 2020-02-28 08:51 | Day surgery (SDC) | payer MEDICARE ==
[2020-02-27 11:01] VITALS: BMI 29.2
[~2020-02-28 08:51] MED LIST changes: -ACETAMINOPHEN TAB 500 MG TAB PO ONE; -DEXAMETHASONE SOD PHOSPHATE 4 MG/ML 1 ML VIAL IV ONE; -GABAPENTIN 300 MG CAP PO ONE; -HYDROmorphone 0.5 MG/0.5 ML SYRINGE IVP PRN; +LACTATED RINGERS 1,000 ML IV SCH; -MELOXICAM 7.5 MG TAB PO ONE; -MIDAZOLAM 2 MG/2 ML VIAL IV PRN; -ONDANSETRON 4 MG/2 ML VIAL IVP ONE; -ROPIVACAINE 246.25 MG, EPINEPHrine 0.5 MG, KETOROLAC 30 MG, cloNIDine HCL/PF 80 MCG, WA... MISCELLANE ONE; -TRANEXAMIC ACID 1,000 MG in SODIUM CHLORIDE 0.9% 100 ML IVPB ONE
[2020-02-28 09:15] VITALS: TEMP 97.6
[2020-02-28] MEDS ORDERED: LACTATED RINGERS 1,000 ML IV ONE (09:20)
[2020-02-28] MEDS ORDERED: MIDAZOLAM 2 MG/2 ML VIAL ONE (09:51)
[2020-02-28] MEDS ORDERED: fentaNYL (PF) 50 MCG/ML 2 ML AMP ONE (09:51)
[2020-02-28] MEDS ORDERED: PROPOFOL 10 MG/ML 20 ML VIAL IV ONE (09:51)
[2020-02-28] MEDS ORDERED: KETOROLAC 15 MG/ML 1 ML VIAL ONE (09:51)
[2020-02-28] MEDS ORDERED: ROPIVACAINE 5MG/ML 20ML VIAL ONE (09:52)
[2020-02-28] MEDS ORDERED: TRIAMCINOLONE ACETONIDE 40 MG/ML 1 ML VIAL ONE (09:52)
[2020-02-28] MEDS ORDERED: LIDOCAINE 1% INJ 10MG/ML (20 ML MDV) ONE (09:52)
--- NOTE | 2020-02-28 10:27 | P.PCN ---
Date of Procedure: 02/28/20 Surgeon: Valdemar Tran Pathology: none sent Condition: stable Disposition: PACU Description of Procedure: PREOPERATIVE DIAGNOSIS: Lumbar spondylosis without myelopathy POSTOPERATIVE DIAGNOSIS: Lumbar spondylosis without myelopathy PROCEDURES : Bilateral Radiofrequency thermocoagulation L4-L5, and L5-S1 medial branch, with fluoroscopic guidance ANESTHESIA: IV moderate conscious sedation with versed and fentanyl and local infiltration with lidocaine 1% 5 ml Physician:Valdemar Tran MD EBL: Minimal PROCEDURE INDICATION: The patient with low back pain secondary to lumbar facet arthropathy who had more than 50% relief of her pain with previous diagnostic lumbar medial branch block with bupivacaine. PROCEDURE DESCRIPTION / TECHNIQUE: The patient was seen and identified in the preoperative area. Risks, benefits, complications, including but not limited to risk of infection ,bleeding , allergic reactions to the medications and no complete pain relief , and alternatives were discussed with the patient, the patient agreed to proceed with the procedure and signed the consent. IV was started. Vital signs remained stable throughout the procedure. The patient has severe degenerative disc disease, about 20 of scoliosis and large bone spurs ,which made the procedure technically difficult. Patient was taken to the OR and time out was completed. The patient was placed in the prone position on the procedure table. The lumber area was prepped and draped in the usual sterile fashion. . Vital signs were closely monitored during the procedure .IV sedation was used during the procedure to decrease patients anxiety. The target points were identified as follows: For the L5-S1 level which corresponds to the dorsal ramus of L5 the target point was at the superior medial aspect of the sacral ala on the ---- side of the spine on the AP view of fluoroscopy and for the L3, and L4 medial branches the target points were at the connection between the transverse process and the superior articular process of L4, and L5 vertebra respectively on the Rt oblique view of fluoroscopy. skin was marked, and localized with 1% lidocaineat these points. Subsequently, an 18 [id number] radiofrequency needles with a 10-mm curved active tips were advanced guided by fluoroscopy to each of the target points mentioned above in a superior medial direction to get the active tips as parallel as possible to the medial branches tracks. AP, oblique, and lateral views of fluoroscopy were used to verify needle tips position. Each level then underwent motor testing at 2.5 Hz and 0 to 3 volt with local stimulation, but no radicular symptoms down the legs. I then injected 1 mL of lidocaine 1% in each needle before starting radiofrequency thermocoagulation at 80 degrees celsius for 90 seconds. After that I injected 1 ml of PF Ropivacaine 0.5%(2 mls) with 20 mg of Kenalog, 1 mL of this mixture was given in each needle before taking the needles out intact. The procedure was repeated in the same manner on the left side with a total dose of Kenalog of 40 mg for the procedure. At the end of the procedure, the skin was cleansed and bandages were applied. A copy of needle placement fluoroscopy was saved on the C-arm machine. COMPLICATIONS: No acute complications. DISPOSITION / PLANS: The patient was placed in a supine position and transferred to the recovery area in a stable condition for observation and was discharged from the recovery room after meeting discharge criteria. Home discharge instructions given to the patient by the staff. The patient was reexamined prior to discharge. The patient will schedule a follow up in the clinic in 2-4 weeks.
[2020-02-28 10:34] VITALS: RESP 17
--- NOTE | 2020-02-28 10:42 | FL ---
Fluoroscopy History: RADIOFREQ ABLATION LUMBAR RADIOFREQUENCY ABLATION LUMBAR, 31 SEC FL, 2 IMAGES SCANNED.
[2020-02-28 10:43] VITALS: BP 117/66; PULSE 69
== END 2020-02-28 10:57 | disposition home or self-care (01) ==
LOC: ORPAIN 08:51
PROVIDERS: ATTEND Anesthesiology
DX: M47.816 Spondylosis without myelopathy or radiculopathy, lumbar region (principal); M51.36 Other intervertebral disc degeneration, lumbar region; M41.86 Other forms of scoliosis, lumbar region; M46.06 Spinal enthesopathy, lumbar region; I10 Essential (primary) hypertension; Z79.899 Other long term (current) drug therapy; Z90.710 Acquired absence of both cervix and uterus; Z90.49 Acquired absence of other specified parts of digestive tract; Z98.41 Cataract extraction status, right eye; Z98.42 Cataract extraction status, left eye; Z96.652 Presence of left artificial knee joint; Z98.890 Other specified postprocedural states
CPT/HCPCS: 64635; 64636; J2250; J3301; J2001; J3010; J1885; J2704; J2795

== ENCOUNTER → 2020-04-01 | Outpatient (CLI) | payer MEDICARE ==
[2020-04-01 11:11] VITALS: BP 105/72; PULSE 85; RESP 18; TEMP 97.7
--- NOTE | 2020-04-01 12:22 | P.PN ---
Subjective Progress Note Date: 04/01/20 This is from a visit for this 65 years old female with a chronic history of severe low back pain, patient diagnosed with use and lumbar spondylosis with lumbar facet arthropathy without myelopathy, recently we have done RFA of the medial branch lumbar area patient continued to have severe low back pain, the pain is constant increased with any activity interfere with her quality of life, patient denies any fever or night sweats she denies any change in bowel movement or urination. Objective - Vital Signs Vital signs: Vital Signs Temp 97.7 F 04/01/20 11:04 Pulse 85 04/01/20 11:04 Resp 18 04/01/20 11:04 BP 105/72 04/01/20 11:04 Pulse Ox 97 04/01/20 11:04 Intake & Output 03/31/20 04/01/20 04/01/20 18:59 06:59 18:59 Weight 77.111 kg - Exam Physical Examinations : -Constitutiona : Cooperative , not in acute distress . -HEENT : nech : supple , no Lymphadenopathy , normal thyroid size . : eyes : no ptosis , no icterus, no photophobia . Gastrointestinal : Central obesity , abdomen soft , bowel sounds positive , large pannicular - neurologic : Cranial nerve II to XII intact , no focal neurological deffecit . -psychatric : alert , oriented X 3 , appropriate affect , intact judgment and insight . -Lymphatic : no Lymphadenopathy . - musculoskeltal : Lumber spine moter stegnth lower extremities ,thigh and legs 5/5 Right side , 5/5 Left side deep tendon reflexes : normal Knee Jerk , normal ankle Jerk lumber facet Loading Test =positive Right , positive Left Range of motion of the lumbar spine Flexion 30 degrees, extension 10 degrees strait leg raising test = negative bilaterally Fabere test= negative bilaterally Assessment and Plan Plan: Assessment and plan=1-lumbar degenerative disc disease. 2-lumbar spondylosis with lumbar facet arthropathy without myelopathy. 3-morbid obesity with large pannicula. She continued to have severe low back pain after RFA of the medial branch lumbar area, patient could benefit from panniculectomy She will be referred to a general surgeon for evaluation regarding panniculectomy. - PQRS measures = - Patient's medications are documented in the chart. -Tobacco use is negative and counseling.Given. -Patient's has not received pneumococcal vaccine. -Advanced care planning discussed, patient not eligible. -Opiate contract not signed. -Pain positive and follow-up visit/procedure is scheduled. -Patient's blood pressure measured [ 105/72 ] , and documented in the record ,and patient will follow up with the primary care. -Patient's weight was measured and body mass index [ 29.2 ] above the normal limits and counseling was done. and patient instructed to follow-up with the primary care physician. -Patient was not identified as an unhealthy alcohol user Time with Patient: Less than 30
== END | disposition home or self-care (01) ==
LOC: PNWHC3 10:52
PROVIDERS: ATTEND Specialist
DX: M51.36 Other intervertebral disc degeneration, lumbar region (principal); M47.816 Spondylosis without myelopathy or radiculopathy, lumbar region; E66.01 Morbid (severe) obesity due to excess calories
CPT/HCPCS: 99211

== ENCOUNTER 2020-07-03 05:35 | Day surgery (SDC) | payer MEDICARE ==
[~2020-07-03 05:35] MED LIST changes: +ACETAMINOPHEN TAB 500 MG TAB PO PRN; -LACTATED RINGERS 1,000 ML IV SCH
[2020-07-03] MEDS ORDERED: ONDANSETRON 4 MG/2 ML VIAL IVP ONE (05:39)
[2020-07-03] MEDS ORDERED: DEXAMETHASONE SOD PHOSPHATE 4 MG/ML 1 ML VIAL IV ONE (05:39)
[2020-07-03] MEDS ORDERED: MIDAZOLAM 2 MG/2 ML VIAL IV PRN (05:39)
[2020-07-03 06:56] LABS: Glucose,Whole Blood 116 mg/dL (75-99)
[2020-07-03 07:08] LABS: Basophils # (A) 0.1 k/uL (0-0.2); Basophils % (A) 1 %; Eosinophils # (A) 0.2 k/uL (0-0.7); Eosinophils % (A) 2 %; HCT 44.7 % (34.0-46.0); HGB 14.3 gm/dL (11.4-16.0); Lymphocytes # (A) 2.3 k/uL (1.0-4.8); Lymphocytes % (A) 25 %; MCH 29.3 pg (25.0-35.0); MCHC 31.9 g/dL (31.0-37.0); MCV 91.9 fL (80.0-100.0); Mean Platelet Volume 6.8; Monocytes # (A) 0.5 k/uL (0-1.0); Monocytes % (A) 5 %; Neutrophils # (A) 6.1 k/uL (1.3-7.7); Neutrophils % (A) 66 %; Platelet Count 262 k/uL (150-450); RBC 4.86 m/uL (3.80-5.40); WBC 9.3 k/uL (3.8-10.6)
[2020-07-03] MEDS: LACTATED RINGERS 1,000 ML IV SCH ×2 (07:14→13:46)
[2020-07-03] MEDS: HEPARIN SODIUM,PORCINE/PF 5,000 UNIT/0.5 ML SYRINGE SQ PRN ×2 (07:15→07:40)
[2020-07-03 07:28] LABS: Potassium 4.3 mmol/L (3.5-5.1)
[2020-07-03] MEDS ORDERED: fentaNYL (PF) 50 MCG/ML 2 ML AMP IVP ONE (07:30)
[2020-07-03] MEDS ORDERED: SODIUM CHLORIDE 0.9% (PF) 10 ML VIAL ONE (07:50)
[2020-07-03] MEDS ORDERED: KETAMINE 10 MG/ML 20 ML VIAL ONE (07:50)
[2020-07-03] MEDS ORDERED: NEOSTIGMINE 1 MG/ML 10 ML VIAL ONE (07:50)
[2020-07-03] MEDS ORDERED: PROPOFOL 10 MG/ML 20 ML VIAL IV ONE (07:50)
[2020-07-03] MEDS ORDERED: SUCCINYLCHOLINE CHLORIDE 100 MG/5 ML SYR IV ONE (07:50)
[2020-07-03] MEDS ORDERED: LIDOCAINE 1% INJ 10MG/ML (20 ML MDV) ONE (07:50)
[2020-07-03] MEDS ORDERED: ROCURONIUM 10 MG/ML (5 ML VIAL) IV ONE (07:50)
[2020-07-03] MEDS ORDERED: GLYCOPYRROLATE 0.2 MG/ML 2 ML VIAL ONE (07:50)
[2020-07-03] MEDS ORDERED: HYDROmorphone (PF) 1 MG/ML ONE (07:50)
[2020-07-03] MEDS ORDERED: ROPIVACAINE 5 MG/ML 30 ML VIAL ONE (07:50)
[2020-07-03] MEDS ORDERED: PHENYLEPHRINE-0.9% NACL SYG 1,000 MCG/10 ML SYRINGE ONE (07:50)
--- NOTE | 2020-07-03 08:01 | P.GSHP ---
History of Present Illness H&P Date: 07/03/20 Chief Complaint: Panniculus This is a 65-year-old female who presents today for panniculectomy. Patient has a well-formed panniculus which hangs down below her pubic area. Patient has issues with chronic back pain and skin irritations due to her panniculus. Patient aware the risk of surgery including possible wound infection hematoma bleed. She is also aware the risk of possible need for cosmetic surgery after panniculectomy. Past Medical History Past Medical History: Hypertension, Sleep Apnea/CPAP/BIPAP Additional Past Medical History / Comment(s): NEUROPATHY, DEPRESSION, ARTHRITIS, CPAP use. History of Any Multi-Drug Resistant Organisms: None Reported Past Surgical History: Appendectomy, Hysterectomy Additional Past Surgical History / Comment(s): LEFT TOTAL KNEE REPLACEMENT, BILATERAL CATARACTS, Pain Clinic Procedures. Past Anesthesia/Blood Transfusion Reactions: No Reported Reaction, Motion Sickness Past Psychological History: Depression Smoking Status: Never smoker Past Alcohol Use History: Rare Past Drug Use History: None Reported - Past Family History Mother Family Medical History: No Reported History Sister(s) Family Medical History: Cancer Additional Family Medical History / Comment(s): Uterine cancer. Medications and Allergies Home Medications Medication Instructions Recorded Confirmed Type Acetaminophen [Tylenol] 1,000 mg PO Q6H PRN 01/10/20 06/29/20 History Gabapentin [Neurontin] 300 mg PO BID 01/10/20 06/29/20 History buPROPion XL [Wellbutrin XL] 300 mg PO QAM 01/10/20 06/29/20 History Lisinopril [Zestril] 10 mg PO HS #0 01/15/20 06/29/20 Rx Ibuprofen 800 mg PO Q12HR 01/27/20 06/29/20 History Allergies Allergy/AdvReac Type Severity Reaction Status Date / Time No Known Allergies Allergy Verified 06/29/20 13:35 Surgical - Exam Vital Signs Temp Pulse Resp BP Pulse Ox 98.2 F 85 20 119/68 97 07/03/20 06:26 07/03/20 06:26 07/03/20 06:26 07/03/20 06:26 07/03/20 06:26 - General well developed, well nourished, no distress - Eyes PERRL - ENT normal pinna - Neck no masses - Respiratory normal expansion - Cardiovascular Rhythm: regular - Abdomen Abdomen: soft, non tender Hernia: none - Integumentary Well informed chronic large panniculus Results - Labs 07/03/20 06:52 07/03/20 06:52 Abnormal Lab Results - Last 24 Hours (Table) 07/03/20 07/03/20 Range/Units 06:48 06:52 Chloride 109 H (98-107) mmol/L POC Glucose (mg/dL) 116 H (75-99) mg/dL Diabetes panel 07/03/20 Range/Units 06:52 Sodium 143 (137-145) mmol/L Potassium 4.3 (3.5-5.1) mmol/L Chloride 109 H (98-107) mmol/L Carbon Dioxide 23 (22-30) mmol/L Pituitary panel 07/03/20 Range/Units 06:52 Sodium 143 (137-145) mmol/L Potassium 4.3 (3.5-5.1) mmol/L Chloride 109 H (98-107) mmol/L Carbon Dioxide 23 (22-30) mmol/L Adrenal panel 07/03/20 Range/Units 06:52 Sodium 143 (137-145) mmol/L Potassium 4.3 (3.5-5.1) mmol/L Chloride 109 H (98-107) mmol/L Carbon Dioxide 23 (22-30) mmol/L Assessment and Plan Assessment: Isai. We'll perform panniculectomy.
[2020-07-03] MEDS ORDERED: LACTATED RINGERS 1,000 ML IV ONE ×3 (09:42→10:13)
[2020-07-03] MEDS ORDERED: HYDROmorphone 0.5 MG/0.5 ML SYRINGE IVP PRN (10:13)
[2020-07-03] MEDS ORDERED: traMADol 50 MG TAB PO PRN (10:13)
[2020-07-03] MEDS ORDERED: ACETAMINOPHEN TAB 325 MG TAB PO PRN (10:13)
[2020-07-03] MEDS ORDERED: ONDANSETRON 4 MG/2 ML VIAL IVP PRN (10:13)
[2020-07-03] MEDS ORDERED: NALOXONE 0.4 MG/ML 1 ML VIAL IV PRN (10:13)
--- NOTE | 2020-07-03 10:13 | P.OP ---
Date of Procedure: 07/03/20 Preoperative Diagnosis: Panniculus Postoperative Diagnosis: Panniculus Procedure(s) Performed: Panniculectomy Anesthesia: ANYA Surgeon: Joel Wilson Estimated Blood Loss (ml): 100 Pathology: none sent Condition: stable Disposition: PACU Description of Procedure: TPROCEDURE: The patient was placed on the operating table in supine position and received general anesthetic. The abdomen was prepped and draped in the usual sterile fashion. The lower skin incision was then made after the skin was marked with a marker. The incision ran from the pubic area to the level of the anterosuperior iliac spine. Using blunt and sharp dissection and electrocautery the subcutaneous tissues were then dissected down to the level of the fascia external oblique. Next, a helga shaped incision was made around the umbilicus and the umbilicus was then dissected down to the level of the fascia external oblique. Care was taken to ensure that the umbilical stalk was wide enough in order to maintain viability of the umbilicus. After the umbilicus was dissected a 0 Vicryl suture was used to orientate the umbilicus. The suture was placed at the 12 o'clock position of the umbilicus. Following this the dissection was then made from the inferior pannicular incision cephalad. The xiphoid and costal margins were the limits of the dissection. Several small perforating vessels were ligated and cautery was used to maintain hemostasis. Once the dissection was performed the panniculus was then divided in the midline from the level of the umbilicus towards the pubic area. Downward and lateral traction was then placed on the abdominal wall and the skin was suitably marked for transection of the umbilicus. The skin was then incised and the Bovie was used for dissection of the pannicular flap. Next, three 10-[place] BAR drains were placed in the wound and brought out through separate stab incisions at the level of the pubic area. The drains were secured to the skin using 3-0 nylon. After the BAR drains were secured, Nikhil's fascia was closed with interrupted 0 Vicryl sutures and then the skin was closed with running 3-0 Monocryl sutures. Prior to closure of the abdominal wall care was taken to ensure that both the abdominal wall and the abdominal wall flap were hemostatic. Next, the umbilicus was reattached to the abdominal wall. A marking line was made across the top of the iliac crest and this line intercepted with the midline abdominal wall line that had been previously made in the preoperative hold area. A small semicircular U-shaped incision was created at the intersection of the two lines and the umbilicus was brought up through this incision. The umbilicus was then trimmed and secured to the skin using 3-0 Monocryl sutures. At this point the drains were placed to suction. The abdomen was cleaned and then sterile tape was placed over top of the incisions. Abdominal binder was then placed. The patient tolerated the procedure well. The patient was sent to recovery room in stable condition.
[2020-07-03] MEDS: HYDROmorphone 0.5 MG/0.5 ML SYRINGE IVP PRN ×2 (10:32→10:37)
[2020-07-03] MEDS: KETOROLAC 15 MG/ML 1 ML VIAL IVP SCH ×3 (10:50→23:45)
--- NOTE | 2020-07-03 12:40 | P.ANPRN ---
Procedure Note - Anesthesia - Nerve Block Performed Bilateral Erector Spinae Single Time Out Performed: Yes (729) Date of Procedure: 07/03/20 Procedure Start Time: 07:30 Procedure Stop Time: 07:39 Location of Patient: PreOp Indication: Acute Post-Operative Pain, Requested by Surgeon Specifically requested for management of pain by : Joel Wilson Sedation Type: Sedate with meaningful contact maintained Preparation: Sterile Prep Position: Prone Catheter: None Needle Types: Pajunk Needle Gauge: 21 Ultrasound used to visualize needle placement: Yes Ultrasound used to observe medication spread: Yes Injectate: 0.5% Ropivacaine (see comment for volume) (15cc + 15cc NACL each side) Blood Aspirated: No Pain Paresthesia on Injection Noted: No Resistance on Injection: Normal Image Stored and Saved: Yes Events: Uneventful and Well Tolerated
--- NOTE | 2020-07-03 15:39 | P.CONS ---
History of Present Illness - Reason for Consult Consult date: 07/03/20 - History of Present Illness 65 years old female patient of Dr. Leyva presented for an elective Panniculectomy with Dr. Dotson for a low lying panniculus. Apparently patient has significant low back pain and takes Tylenol and Motrin on a regular basis. She approach her primary care physician since the pain was not controlled and was suggested to have a Panniculectomy. Patient has lost around 75 pounds in the past couple of years and used to weigh 250 pounds. She denies any chest pain, shortness of breath, no abdominal pain, change in bowel habits. Patient is seen postoperatively doing well. She does have abdominal binder and 2 drains coming out of her abdomen incision. Vitals evaluated, she is afebrile pulse 75 respiratory rate 16 blood pressure 123/85 oxygenating at 99% on 2 L sodium 143 potassium 4.3 glucose 116. COVID virus is not detected. Review of Systems Constitutional: Denies chills, Denies fever, Denies lethargy, Denies malaise, Denies poor appetite, Denies weakness, Denies weight loss Eyes: denies decreased vision, denies diplopia, denies discharge, denies pain Ears: deny: decreased hearing Ears, nose, mouth and throat: Denies dental pain, Denies headache, Denies nasal discharge, Denies nose pain Cardiovascular: Denies chest pain, Denies decreased exercise tolerance, Denies edema, Denies high blood pressure, Denies irregular heart beat, Denies palpitations, Denies paroxysmal nocturnal dyspnea, Denies rapid heart beat, Denies shortness of breath Respiratory: Denies congestion, Denies cough, Denies cough with sputum, Denies dyspnea, Denies home oxygen, Denies wheezing Gastrointestinal: Denies abdominal pain, Denies change in bowel habits, Denies coffee ground emesis, Denies early satiety, Denies excessive gas, Denies heartburn, Denies hematemesis, Denies hematochezia, Denies loss of appetite, Denies nausea, Denies vomiting Genitourinary: Denies dysuria, Denies flank pain, Denies kidney stones, Denies menorrhagia, Denies urgency, Denies urinary frequency Musculoskeletal: Denies gait dysfunction, Denies limitation of motion, Denies morning stiffness, Denies muscle cramps Integumentary: Denies rash, Denies wounds, Denies brittle nails, Denies change in hair/nails, Denies darkening of skin Neurological: Denies balance difficulties, Denies change in speech, Denies double vision, Denies gait dysfunction, Denies loss of vision, Denies motor disturbance, Denies numbness, Denies paralysis, Denies paresthesias, Denies seizures Psychiatric: Denies anxiety, Denies depression Endocrine: Denies excessive sweating, Denies excessive thirst, Denies high blood sugars, Denies palpitations Hematologic/Lymphatic: Denies easy bruising, Denies lymphadenopathy Past Medical History Past Medical History: Hypertension, Sleep Apnea/CPAP/BIPAP Additional Past Medical History / Comment(s): NEUROPATHY, DEPRESSION, ARTHRITIS, CPAP use. History of Any Multi-Drug Resistant Organisms: None Reported Past Surgical History: Appendectomy, Hysterectomy Additional Past Surgical History / Comment(s): LEFT TOTAL KNEE REPLACEMENT, BILATERAL CATARACTS, Pain Clinic Procedures. Past Anesthesia/Blood Transfusion Reactions: No Reported Reaction, Motion Sickness Past Psychological History: Depression Smoking Status: Never smoker Past Alcohol Use History: Rare Past Drug Use History: None Reported - Past Family History Mother Family Medical History: No Reported History Sister(s) Family Medical History: Cancer Additional Family Medical History / Comment(s): Uterine cancer. Medications and Allergies Home Medications Medication Instructions Recorded Confirmed Type Acetaminophen [Tylenol] 1,000 mg PO Q6H PRN 01/10/20 06/29/20 History Gabapentin [Neurontin] 300 mg PO BID 01/10/20 06/29/20 History buPROPion XL [Wellbutrin XL] 300 mg PO QAM 01/10/20 06/29/20 History Lisinopril [Zestril] 10 mg PO HS #0 01/15/20 06/29/20 Rx Ibuprofen 800 mg PO Q12HR 01/27/20 06/29/20 History Allergies Allergy/AdvReac Type Severity Reaction Status Date / Time No Known Allergies Allergy Verified 06/29/20 13:35 Physical Exam Vitals: Vital Signs Temp Pulse Pulse Pulse Resp BP BP 07/03/20 13:15 75 16 07/03/20 12:45 69 16 07/03/20 12:38 69 16 07/03/20 12:23 67 16 07/03/20 12:08 74 16 122/81 07/03/20 12:05 70 16 129/83 07/03/20 11:37 97.3 F L 70 16 148/105 07/03/20 11:20 67 16 07/03/20 11:05 66 16 07/03/20 10:50 66 16 07/03/20 10:35 68 18 152/83 07/03/20 10:20 67 16 163/89 07/03/20 10:05 98.0 F 83 16 137/88 07/03/20 06:26 98.2 F 85 20 119/68 BP Pulse Ox 07/03/20 13:15 123/85 99 07/03/20 12:45 142/86 99 07/03/20 12:38 128/86 99 07/03/20 12:23 124/83 98 07/03/20 12:08 98 07/03/20 12:05 07/03/20 11:37 99 07/03/20 11:20 146/84 99 07/03/20 11:05 145/85 98 07/03/20 10:50 143/83 100 07/03/20 10:35 100 07/03/20 10:20 100 07/03/20 10:05 98 07/03/20 06:26 97 Intake and Output 07/03/20 07/03/20 07/03/20 06:59 14:59 22:59 Intake Total 1450 Output Total 455 Balance 995 Intake: IV 1450 Output: Urine 350 Estimated Blood Loss 105 Other: Voiding Method Indwelling Catheter Weight 79.5 kg - Constitutional General appearance: cooperative, no acute distress, on 2 L oxygen - EENT Eyes: anicteric sclerae, PERRLA, normal appearance ENT: hearing grossly normal - Neck Neck: no lymphadenopathy, normal ROM - Respiratory Respiratory: bilateral: CTA, negative: diminished, dullness, rales, rhonchi - Cardiovascular Rhythm: regular Heart sounds: normal: S1, S2 Abnormal Heart Sounds: no systolic murmur, no diastolic murmur - Gastrointestinal General gastrointestinal: normal bowel sounds, soft does have abdominal binder no overlying bruising from dressing noted. Serosanguineous fluid around 5-10 mL noted in the drains - Integumentary Integumentary: no rash - Neurologic Neurologic: No sensory or motor deficit noted - Musculoskeletal Musculoskeletal: gait not assessed strength equal bilaterally - Psychiatric Psychiatric: A&O x's 3, appropriate affect Results CBC & Chem 7: 07/03/20 06:52 07/03/20 06:52 Labs: Abnormal Lab Results - Last 24 Hours (Table) 07/03/20 07/03/20 Range/Units 06:48 06:52 Chloride 109 H (98-107) mmol/L POC Glucose (mg/dL) 116 H (75-99) mg/dL Assessment and Plan Plan: #1 postoperative day 0 for elective panniculectomy. Pain controlled on current regimen of Toradol, Dilaudid and tramadol. Incentive spirometry to prevent pulmonary prophylaxis. Encourage ambulation. #2 prediabetes continue to watch patient's blood glucose. No insulin sliding scale at this point. 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 #6 DVT prophylaxis with heparin every 12 #7 GI prophylaxis with Pepcid 20 mg daily #8 CODE STATUS full code Thank you for the consultation. I'll be happy to assist in patient's medical nevi patient is in the hospital
[2020-07-03] MEDS: GABAPENTIN 300 MG CAP PO SCH (21:38)
[2020-07-03] MEDS: lisinopriL 10 MG TAB PO SCH (21:39)
[2020-07-04] MEDS: KETOROLAC 15 MG/ML 1 ML VIAL IVP SCH ×3 (05:17→17:33)
[2020-07-04] MEDS: GABAPENTIN 300 MG CAP PO SCH ×2 (08:20→21:11)
[2020-07-04] MEDS: FAMOTIDINE 20 MG TAB PO SCH (08:20)
[2020-07-04] MEDS: buPROPion XL 300 MG TAB.ER.24H PO SCH (08:21)
[2020-07-04] MEDS: ENOXAPARIN 40 MG/0.4 ML SYRINGE SQ SCH (08:25)
--- NOTE | 2020-07-04 11:28 | P.PN ---
Subjective Progress Note Date: 07/04/20 65 years old female patient of Dr. Leyva presented for an elective Panniculectomy with Dr. Dotson for a low lying panniculus. Apparently patient has significant low back pain and takes Tylenol and Motrin on a regular basis. She approach her primary care physician since the pain was not controlled and was suggested to have a Panniculectomy. Patient has lost around 75 pounds in the past couple of years and used to weigh 250 pounds. She denies any chest pain, shortness of breath, no abdominal pain, change in bowel habits. Patient is seen postoperatively doing well. She does have abdominal binder and 2 drains coming out of her abdomen incision. Vitals evaluated, she is afebrile pulse 75 respiratory rate 16 blood pressure 123/85 oxygenating at 99% on 2 L sodium 143 potassium 4.3 glucose 116. COVID virus is not detected. 07/04: Patient is examined at the bedside patient is found sitting up in the chair. She is complaining of burning and discomfort to the incisional site. Patient has BAR drains in place with serosanguineous drainage noted. Incentive spirometer was in her back to go home. It was placed at the bedside with encouragement to utilize 10 times an hour. Patient states that she thinks she'll be going home today. However Dr. Gramajo has not been in to see patient. She continues to have indwelling catheter in place. She is able to tolerate meals without any difficulties. Patient states that she is feeling okay and is anxious to go home. Review of Systems Constitutional: Denies chills, Denies fever, Denies lethargy, Denies malaise, Denies poor appetite, Denies weakness, Denies weight loss Eyes: denies decreased vision, denies diplopia, denies discharge, denies pain Ears: deny: decreased hearing Ears, nose, mouth and throat: Denies dental pain, Denies headache, Denies nasal discharge, Denies nose pain Cardiovascular: Denies chest pain, Denies decreased exercise tolerance, Denies edema, Denies high blood pressure, Denies irregular heart beat, Denies palpitations, Denies paroxysmal nocturnal dyspnea, Denies rapid heart beat, Denies shortness of breath Respiratory: Denies congestion, Denies cough, Denies cough with sputum, Denies dyspnea, Denies home oxygen, Denies wheezing Gastrointestinal: Denies abdominal pain, Denies change in bowel habits, Denies coffee ground emesis, Denies early satiety, Denies excessive gas, Denies heartburn, Denies hematemesis, Denies hematochezia, Denies loss of appetite, Denies nausea, Denies vomiting Genitourinary: Denies dysuria, Denies flank pain, Denies kidney stones, Denies menorrhagia, Denies urgency, Denies urinary frequency Musculoskeletal: Denies gait dysfunction, Denies limitation of motion, Denies morning stiffness, Denies muscle cramps Integumentary: Denies rash, Denies wounds, Denies brittle nails, Denies change in hair/nails, Denies darkening of skin Neurological: Denies balance difficulties, Denies change in speech, Denies double vision, Denies gait dysfunction, Denies loss of vision, Denies motor disturbance, Denies numbness, Denies paralysis, Denies paresthesias, Denies seizures Psychiatric: Denies anxiety, Denies depression Endocrine: Denies excessive sweating, Denies excessive thirst, Denies high blood sugars, Denies palpitations Hematologic/Lymphatic: Denies easy bruising, Denies lymphadenopathy Physical Exam: General Appearance: Alert, cooperative, no distress, decreased 5-year-old appears stated age. Neck HEENT: Supple, no lymphadenopathy, no thyroid enlargement, no carotid bruits. Lungs: Clear to auscultation without crackles or wheezes no rhonchi, no deformity. Chest Wall: Chest wall normal expansion with deep inspiration no tenderness and no deformity was found on exam, no costochondral pain or discomfort. Heart: Regular rate and rhythm, S1, S2 normal, no murmur, rub or gallop. Back: Symmetric, no curvature, ROM normal, no CVA tenderness. Abdomen: BAR drains in place with serosanguineous drainage, dressing to incision site is clean and dry Soft, tender, no rebound or rigidity, no hepatosplenomegaly. Extremities: Extremities normal, atraumatic, no cyanosis or edema. Pulses: 2+ and symmetric. Skin: Skin color, texture, tugor normal, no rashes or lesions. Neurologic: Alert oriented x3 cranial nerves II through XII intact, no motor deficit, no abnormal balance or gait Assessment/plan 1. postoperative day 1 for elective panniculectomy. Pain controlled on current regimen of Toradol, Dilaudid and tramadol. Incentive spirometry to prevent pulmonary prophylaxis. Encourage ambulation. 2. prediabetes continue to watch patient's blood glucose. No insulin sliding scale at this point. Diabetic diet recommended 3. hypertension resume lisinopril 10 mg daily at bedtime 4. 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 depression resume Wellbutrin 300 mg every a.m. 6. DVT prophylaxis with heparin every 12 7. GI prophylaxis with Pepcid 20 mg daily CODE STATUS: full code Thank you for the consultation. I'll be happy to assist in patient's medical needs while patient is in the hospital. Impression and plan of care have been directed as dictated by the signing physician. Sonia Longo nurse practitioner acting as scribe for signing physician. Objective - Vital Signs Vital signs: Vital Signs Temp 98.4 F 07/04/20 04:27 Pulse 66 07/04/20 08:00 Resp 16 07/04/20 08:00 BP 103/62 07/04/20 04:27 Pulse Ox 98 07/04/20 04:27 Intake & Output 07/03/20 07/04/20 07/04/20 18:59 06:59 18:59 Intake Total 2200 Output Total 865 480 330 Balance 1335 -480 -330 Intake: IV 1450 Intake, IV Titration 750 Amount Lactated Ringers 1,000 ml 750 @ 125 mls/hr IV .Q8H ONE Rx#:[id number] Output: Drainage 60 80 30 Left 20 50 15 Right 40 30 15 Urine 700 400 300 Estimated Blood Loss 105 Other: Voiding Method Indwelling Catheter Indwelling Catheter Indwelling Catheter - Labs CBC & Chem 7: 07/03/20 06:52 07/03/20 06:52
[2020-07-04] MEDS: HYDROcodone/APAP 5-325MG 1 EACH TAB PO PRN (12:12)
--- NOTE | 2020-07-04 13:14 | P.PN ---
Progress Note - Text Progress Note Date: 07/04/20 Patient's complaints of incisional pain. On exam vital signs are stable. Abdomen soft. Incision is clean dry tach. Status post a colectomy. Patient presents discharged home tomorrow.
[2020-07-04] MEDS: lisinopriL 10 MG TAB PO SCH (21:06)
[2020-07-05] MEDS: KETOROLAC 15 MG/ML 1 ML VIAL IVP SCH ×2 (01:05→05:22)
[2020-07-05] MEDS: HYDROcodone/APAP 5-325MG 1 EACH TAB PO PRN ×2 (08:09→13:50)
[2020-07-05] MEDS: buPROPion XL 300 MG TAB.ER.24H PO SCH (08:09)
[2020-07-05] MEDS: ENOXAPARIN 40 MG/0.4 ML SYRINGE SQ SCH (08:09)
[2020-07-05] MEDS: GABAPENTIN 300 MG CAP PO SCH (08:09)
[2020-07-05] MEDS: FAMOTIDINE 20 MG TAB PO SCH (08:09)
--- NOTE | 2020-07-05 10:40 | P.PN ---
Subjective Progress Note Date: 07/05/20 65 years old female patient of Dr. Leyva presented for an elective Panniculectomy with Dr. Dotson for a low lying panniculus. Apparently patient has significant low back pain and takes Tylenol and Motrin on a regular basis. She approach her primary care physician since the pain was not controlled and was suggested to have a Panniculectomy. Patient has lost around 75 pounds in the past couple of years and used to weigh 250 pounds. She denies any chest pain, shortness of breath, no abdominal pain, change in bowel habits. Patient is seen postoperatively doing well. She does have abdominal binder and 2 drains coming out of her abdomen incision. Vitals evaluated, she is afebrile pulse 75 respiratory rate 16 blood pressure 123/85 oxygenating at 99% on 2 L sodium 143 potassium 4.3 glucose 116. COVID virus is not detected. 07/04: Patient is examined at the bedside patient is found sitting up in the chair. She is complaining of burning and discomfort to the incisional site. Patient has BAR drains in place with serosanguineous drainage noted. Incentive spirometer was in her back to go home. It was placed at the bedside with encouragement to utilize 10 times an hour. Patient states that she thinks she'll be going home today. However Dr. Gramajo has not been in to see patient. She continues to have indwelling catheter in place. She is able to tolerate meals without any difficulties. Patient states that she is feeling okay and is anxious to go home. 07/05: Patient is found sitting up at the side of the bed without any complaints or concerns. Patient states that the incision sites burning and discomfort has improved. She continues to have BAR drains in place. With serous changes noted. Incentive spirometer is at the bedside. Patient states that she will probably go home today. She'll be evaluated by surgery. Indwelling catheter is in place at this time. She is able to tolerate meals without any difficulties. Patient is at home today we will continue with Pepcid 20 mg for GI prophylaxis. Review of Systems Constitutional: Denies chills, Denies fever, Denies lethargy, Denies malaise, Denies poor appetite, Denies weakness, Denies weight loss Eyes: denies decreased vision, denies diplopia, denies discharge, denies pain Ears: deny: decreased hearing Ears, nose, mouth and throat: Denies dental pain, Denies headache, Denies nasal discharge, Denies nose pain Cardiovascular: Denies chest pain, Denies decreased exercise tolerance, Denies edema, Denies high blood pressure, Denies irregular heart beat, Denies palpitations, Denies paroxysmal nocturnal dyspnea, Denies rapid heart beat, Denies shortness of breath Respiratory: Denies congestion, Denies cough, Denies cough with sputum, Denies dyspnea, Denies home oxygen, Denies wheezing Gastrointestinal: Denies abdominal pain, Denies change in bowel habits, Denies coffee ground emesis, Denies early satiety, Denies excessive gas, Denies heartburn, Denies hematemesis, Denies hematochezia, Denies loss of appetite, Denies nausea, Denies vomiting Genitourinary: Denies dysuria, Denies flank pain, Denies kidney stones, Denies menorrhagia, Denies urgency, Denies urinary frequency Musculoskeletal: Denies gait dysfunction, Denies limitation of motion, Denies morning stiffness, Denies muscle cramps Integumentary: Denies rash, Denies wounds, Denies brittle nails, Denies change in hair/nails, Denies darkening of skin Neurological: Denies balance difficulties, Denies change in speech, Denies double vision, Denies gait dysfunction, Denies loss of vision, Denies motor disturbance, Denies numbness, Denies paralysis, Denies paresthesias, Denies seizures Psychiatric: Denies anxiety, Denies depression Endocrine: Denies excessive sweating, Denies excessive thirst, Denies high blood sugars, Denies palpitations Hematologic/Lymphatic: Denies easy bruising, Denies lymphadenopathy Physical Exam: General Appearance: Alert, cooperative, no distress, decreased 5-year-old appears stated age. Neck HEENT: Supple, no lymphadenopathy, no thyroid enlargement, no carotid bruits. Lungs: Clear to auscultation without crackles or wheezes no rhonchi, no deformi ty. Chest Wall: Chest wall normal expansion with deep inspiration no tenderness and no deformity was found on exam, no costochondral pain or discomfort. Heart: Regular rate and rhythm, S1, S2 normal, no murmur, rub or gallop. Back: Symmetric, no curvature, ROM normal, no CVA tenderness. Abdomen: BAR drains in place with serosanguineous drainage, dressing to incision site is clean and dry Soft, tender, no rebound or rigidity, no hepatosplenomegaly. Extremities: Extremities normal, atraumatic, no cyanosis or edema. Pulses: 2+ and symmetric. Skin: Skin color, texture, tugor normal, no rashes or lesions. Neurologic: Alert oriented x3 cranial nerves II through XII intact, no motor deficit, no abnormal balance or gait Assessment/plan 1. postoperative day 2 for elective panniculectomy. Pain controlled on current regimen of Toradol, Dilaudid and tramadol. Incentive spirometry to prevent pulmonary prophylaxis. Encourage ambulation. 2. prediabetes continue to watch patient's blood glucose. No insulin sliding scale at this point. Diabetic diet recommended 3. hypertension resume lisinopril 10 mg daily at bedtime 4. 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 depression resume Wellbutrin 300 mg every a.m. 6. DVT prophylaxis with heparin every 12 7. GI prophylaxis with Pepcid 20 mg daily CODE STATUS: full code Thank you for the consultation. I'll be happy to assist in patient's medical needs while patient is in the hospital. Impression and plan of care have been directed as dictated by the signing physic ian. Sonia Longo nurse practitioner acting as scribe for signing physician. Objective - Vital Signs Vital signs: Vital Signs Temp 97.9 F 07/05/20 04:17 Pulse 68 07/05/20 08:00 Resp 16 07/05/20 08:00 BP 115/77 07/05/20 04:17 Pulse Ox 93 L 07/05/20 04:17 Intake & Output 07/04/20 07/05/20 07/05/20 18:59 06:59 18:59 Intake Total 350 Output Total 900 540 430 Balance -900 -190 -430 Intake: Oral 350 Output: Drainage 150 130 130 Left 60 70 70 Right 90 60 60 Urine 750 410 300 Other: Voiding Method Indwelling Catheter Indwelling Catheter Indwelling Catheter - Labs CBC & Chem 7: 07/03/20 06:52 07/03/20 06:52
[2020-07-05 12:46] VITALS: BP 141/89; PULSE 75; RESP 16; TEMP 97.7
--- NOTE | 2020-07-05 15:20 | P.DS ---
Providers Date of admission: 07/03/2020 Expected date of discharge: 07/05/20 Attending physician: Joel Wilson Consults: 07/03/20 10:13 Consult Physician Routine Consulting Provider: Deanna Leyva Consult Reason/Comments: Medical management Do you want consulting provider notified?: Yes Primary care physician: Deanna Leyva Hospital Course: This is a 65-year-old female underwent panniculectomy. Patient's postoperative stay was unremarkable. Please see chart for details. Procedures: Panniculectomy Patient Condition at Discharge: Good Plan - Discharge Summary Discharge Rx Participant: Yes New Discharge Prescriptions: New oxyCODONE HCL [OxyIR] 5 mg PO Q6H PRN 3 Days #10 tab PRN Reason: Pain Famotidine [Pepcid] 20 mg PO DAILY #30 tab Docusate [Colace] 100 mg PO BID #20 capsule Ibuprofen [Motrin] 600 mg PO Q6HR PRN #40 tab PRN Reason: Pain Acetaminophen Tab [Tylenol] 650 mg PO Q6H #30 tab oxyCODONE HCL [OxyIR] 5 mg PO Q6H PRN 3 Days #11 tab PRN Reason: Pain Continue Gabapentin [Neurontin] 300 mg PO BID buPROPion XL [Wellbutrin XL] 300 mg PO QAM Acetaminophen [Tylenol] 1,000 mg PO Q6H PRN PRN Reason: Pain Lisinopril [Zestril] 10 mg PO HS #0 Ibuprofen 800 mg PO Q12HR Discharge Medication List Acetaminophen [Tylenol] 1,000 mg PO Q6H PRN 01/10/20 [History] Gabapentin [Neurontin] 300 mg PO BID 01/10/20 [History] buPROPion XL [Wellbutrin XL] 300 mg PO QAM 01/10/20 [History] Lisinopril [Zestril] 10 mg PO HS #0 01/15/20 [Rx] Ibuprofen 800 mg PO Q12HR 01/27/20 [History] Acetaminophen Tab [Tylenol] 650 mg PO Q6H #30 tab 07/05/20 [Rx] Docusate [Colace] 100 mg PO BID #20 capsule 07/05/20 [Rx] Famotidine [Pepcid] 20 mg PO DAILY #30 tab 07/05/20 [Rx] Ibuprofen [Motrin] 600 mg PO Q6HR PRN #40 tab 07/05/20 [Rx] oxyCODONE HCL [OxyIR] 5 mg PO Q6H PRN 3 Days #10 tab 07/05/20 [Rx] oxyCODONE HCL [OxyIR] 5 mg PO Q6H PRN 3 Days #11 tab 07/05/20 [Rx] Follow up Appointment(s)/Referral(s): Joel Wilson MD [STAFF PHYSICIAN] - 1 Week Patient Instructions/Handouts: Famotidine (By mouth), Ibuprofen (By mouth), Oxycodone/Acetaminophen (By mouth), Laxative, Stool Softeners (By mouth), Panniculectomy (DC) Activity/Diet/Wound Care/Special Instructions: Diet as tolerated Low Fat diet Limit activity until seen by Showjuliann everyday Milk BAR Drains and record output (take record to appointment) Call on Monday to schedule Dr's appointments office closed on weekends Discharge Disposition: HOME SELF-CARE
== END 2020-07-05 14:20 | disposition home or self-care (01) ==
LOC: OR 05:35 → 5NMEDONC 10:21 → OR 07-05 14:20
PROVIDERS: ATTEND Surgery
DX: E65 Localized adiposity (principal); G89.29 Other chronic pain; M54.9 Dorsalgia, unspecified; I10 Essential (primary) hypertension; Z20.822 Contact with and (suspected) exposure to COVID-19; R73.03 Prediabetes; G62.9 Polyneuropathy, unspecified; G47.30 Sleep apnea, unspecified; Z99.89 Dependence on other enabling machines and devices; F32.9 Major depressive disorder, single episode, unspecified; M19.90 Unspecified osteoarthritis, unspecified site; Z90.89 Acquired absence of other organs; Z90.710 Acquired absence of both cervix and uterus; Z96.652 Presence of left artificial knee joint; Z98.42 Cataract extraction status, left eye; Z98.41 Cataract extraction status, right eye; Z98.890 Other specified postprocedural states; Z80.49 Family history of malignant neoplasm of other genital organs; Z79.1 Long term (current) use of non-steroidal anti-inflammatories (NSAID); Z79.899 Other long term (current) drug therapy
CPT/HCPCS: 64999; 80051; 85025; 87635; 15830; 15847; J2250; J1100; J2710; J0690; J2405; J2001; J1650 ×2; J3010; J1170 ×3; J2795; J1885 ×3; J2370; J0330; J2704; J1644

== ENCOUNTER 2020-08-31 12:52 | Inpatient (IN) | payer MEDICARE ==
[2020-08-31] MEDS ORDERED: SODIUM CHLORIDE 0.9% 1,000 ML IV STA ×2 (14:54)
[2020-08-31] MEDS ORDERED: ONDANSETRON 4 MG/2 ML VIAL IVP STA (14:54)
[2020-08-31] MEDS ORDERED: cefTRIAXone IN SWFI 1,000 MG/10 ML SYRINGE IVP STA (14:55)
--- NOTE | 2020-08-31 15:25 | ED ---
Abdominal Pain HPI <Nikko Proctor - Last Filed: 08/31/20 17:16> - General Source: patient Mode of arrival: ambulatory Limitations: physical limitation <Yves Falk - Last Filed: 08/31/20 17:24> - General Chief Complaint: Abdominal Pain Stated Complaint: stomach infection Time Seen by Provider: 08/31/20 14:45 - History of Present Illness Initial Comments: 65-year-old presents to the emergency department with a chief complaint of a skin infection. Patient states in June she underwent panniculectomy by and was relatively symptom at it. He states over the last 3 weeks she's been feeling nauseous. Less than showed bowel movements about 4 days ago. States about 2-3 days ago she has developed tenderness near the incision site along with gradually increasing erythema and feeling drier and grinder tender the region. Also reports having some chills but denies any fevers at home. Denies any vomiting or diarrhea. Also reports some dysuria but denies any increased urgency or frequency. Denies any vaginal discharge, foul smelling bleeding. (Yves Falk) - Related Data Home Medications Medication Instructions Recorded Confirmed Acetaminophen [Tylenol] 1,000 mg PO Q6H PRN 01/10/20 06/29/20 Gabapentin [Neurontin] 300 mg PO BID 01/10/20 06/29/20 buPROPion XL [Wellbutrin XL] 300 mg PO QAM 01/10/20 06/29/20 Ibuprofen 800 mg PO Q12HR 01/27/20 06/29/20 Previous Rx's Medication Instructions Recorded Lisinopril [Zestril] 10 mg PO HS #0 01/15/20 Acetaminophen Tab [Tylenol] 650 mg PO Q6H #30 tab 07/05/20 Docusate [Colace] 100 mg PO BID #20 capsule 07/05/20 Famotidine [Pepcid] 20 mg PO DAILY #30 tab 07/05/20 Ibuprofen [Motrin] 600 mg PO Q6HR PRN #40 tab 07/05/20 oxyCODONE HCL [OxyIR] 5 mg PO Q6H PRN 3 Days #10 tab 07/05/20 oxyCODONE HCL [OxyIR] 5 mg PO Q6H PRN 3 Days #11 tab 07/05/20 Allergies Allergy/AdvReac Type Severity Reaction Status Date / Time No Known Allergies Allergy Verified 08/31/20 13:06 Review of Systems ROS Other: All systems not noted in ROS Statement are negative. <Nikko Proctor - Last Filed: 08/31/20 17:16> ROS Other: All systems not noted in ROS Statement are negative. <BrennannjYves - Last Filed: 08/31/20 17:24> ROS Statement: Those systems with pertinent positive or pertinent negative responses have been documented in the HPI. Past Medical History Past Medical History: Hypertension, Sleep Apnea/CPAP/BIPAP Additional Past Medical History / Comment(s): NEUROPATHY, DEPRESSION, ARTHRITIS, CPAP use. History of Any Multi-Drug Resistant Organisms: None Reported Past Surgical History: Appendectomy, Hysterectomy Additional Past Surgical History / Comment(s): LEFT TOTAL KNEE REPLACEMENT, BILATERAL CATARACTS, Pain Clinic Procedures., panniculetomy Past Anesthesia/Blood Transfusion Reactions: No Reported Reaction, Motion Sickness Past Psychological History: Depression Smoking Status: Never smoker Past Alcohol Use History: Rare Past Drug Use History: None Reported - Past Family History Mother Family Medical History: No Reported History Sister(s) Family Medical History: Cancer Additional Family Medical History / Comment(s): Uterine cancer. <Yves Falk - Last Filed: 08/31/20 17:24> General Exam Limitations: physical limitation General appearance: alert, in no apparent distress Head exam: Present: atraumatic, normocephalic, normal inspection Eye exam: Present: normal appearance, PERRL, EOMI Pupils: Present: normal accommodation ENT exam: Present: normal exam, normal oropharynx, mucous membranes moist Neck exam: Present: normal inspection, full ROM. Absent: tenderness, lymphadenopathy Respiratory exam: Present: normal lung sounds bilaterally. Absent: respiratory distress, wheezes, rales Cardiovascular Exam: Present: regular rate, normal rhythm, normal heart sounds. Absent: systolic murmur GI/Abdominal exam: Present: soft, distended (Some abdominal distention), tenderness (Tenderness near the incision site with overlying cellulitic skin changes. No discharge noted.). Absent: guarding, rebound, rigid Extremities exam: Present: normal inspection, full ROM, normal capillary refill. Absent: tenderness, pedal edema, joint swelling Back exam: Present: normal inspection, full ROM. Absent: tenderness Neurological exam: Present: alert, oriented X3, normal gait Psychiatric exam: Present: normal affect, normal mood Skin exam: Present: warm, dry, intact, normal color <Yves Falk - Last Filed: 08/31/20 17:24> Course <Nikko Proctor - Last Filed: 08/31/20 17:16> Vital Signs 08/31/20 13:01 Temperature 97.9 F Pulse Rate 91 Respiratory 18 Rate Blood Pressure 106/75 O2 Sat by Pulse 97 Oximetry - Reevaluation(s) Reevaluation #1: 08/31/20 17:16 PA supervision: I personally did evaluate this case the patient did present with complaints of abdominal discomfort and nausea going on for last several weeks she is status post panniculectomy. Evaluation demonstrate evidence of cellulitis and evidence of fluid collection. (Nikko Proctor) Medical Decision Making - Lab Data Result diagrams: 08/31/20 15:05 08/31/20 15:05 <Nikko Proctor - Last Filed: 08/31/20 17:16> - Lab Data Result diagrams: 08/31/20 15:05 08/31/20 15:05 <Yves Falk - Last Filed: 08/31/20 17:24> - Medical Decision Making 65-year-old presents to the emergency department with a chief complaint of a skin infection. On physical examination, overlying cellulitic skin changes noted over the surgical site. Her vital signs are within normal limits. Patient also complaining of some dysuria. Laboratory work reveals a CBC with leukocytosis of 21K. Patient was initially given IV fluids and Rocephin. Hemoglobin of 10.3 also noted. Patient also appears to have a urinary tract infection with positive nitrates, leukocyte esterase and white blood cells. Urine culture is pending. Blood cultures also pending. Lactic acid within normal limits. CT of abdomen and pelvis obtained shows overlying cellulitis on the surgical site. There is also a subcutaneous fluid collection measuring [id number]. I spoke to who will admit for further medical management. He suggested nothing by mouth after midnight. Also suggested Zosyn. Case discussed with Dr. Proctor. Dr. Oseguera consult (Yves Falk) - Lab Data Lab Results 06/21/21 06/21/21 06/21/21 Range/Units 15:05 15:05 15:05 WBC 21.6 H (3.8-10.6) k/uL RBC 3.59 L (3.80-5.40) m/uL Hgb 10.2 L D (11.4-16.0) gm/dL Hct 31.2 L (34.0-46.0) % MCV 86.9 D (80.0-100.0) fL MCH 28.4 (25.0-35.0) pg MCHC 32.7 (31.0-37.0) g/dL RDW 13.6 (11.5-15.5) % Plt Count 410 (150-450) k/uL MPV 6.8 Neutrophils % 83 % Lymphocytes % 9 % Monocytes % 5 % Eosinophils % 1 % Basophils % 0 % Neutrophils # 18.0 H (1.3-7.7) k/uL Lymphocytes # 2.0 (1.0-4.8) k/uL Monocytes # 1.1 H (0-1.0) k/uL Eosinophils # 0.1 (0-0.7) k/uL Basophils # 0.1 (0-0.2) k/uL Hypochromasia Slight Sodium 143 (137-145) mmol/L Potassium 3.6 (3.5-5.1) mmol/L Chloride 108 H (98-107) mmol/L Carbon Dioxide 25 (22-30) mmol/L Anion Gap 10 mmol/L BUN 20 H (7-17) mg/dL Creatinine 0.64 (0.52-1.04) mg/dL Est GFR (CKD-EPI)AfAm >90 (>60 ml/min/1.73 sqM) Est GFR (CKD-EPI)NonAf >90 (>60 ml/min/1.73 sqM) Glucose 113 H (74-99) mg/dL Plasma Lactic Acid Wade (0.7-2.0) mmol/L Calcium 8.9 (8.4-10.2) mg/dL Total Bilirubin 0.3 (0.2-1.3) mg/dL AST 22 (14-36) U/L ALT 10 (4-34) U/L Alkaline Phosphatase 106 (38-126) U/L Total Protein 5.8 L (6.3-8.2) g/dL Albumin 3.0 L (3.5-5.0) g/dL Amylase 45 (30-110) U/L Lipase 35 (23-300) U/L Urine Color Yellow Urine Appearance Cloudy H (Clear) Urine pH 5.5 (5.0-8.0) Ur Specific [place] 1.026 (1.001-1.035) Urine Protein 1+ H (Negative) Urine Glucose (UA) Negative (Negative) Urine Ketones 1+ H (Negative) Urine Blood Small H (Negative) Urine Nitrite Positive H (Negative) Urine Bilirubin Negative (Negative) Urine Urobilinogen <2.0 (<2.0) mg/dL Ur Leukocyte Esterase Moderate H (Negative) Urine RBC 3 (0-5) /hpf Urine WBC 27 H (0-5) /hpf Ur Squamous Epith Cells 7 H (0-4) /hpf Urine Bacteria Many H (None) /hpf Hyaline Casts 26 H (0-2) /lpf Urine Mucus Many H (None) /hpf // Range/Units 15:05 WBC (3.8-10.6) k/uL RBC (3.80-5.40) m/uL Hgb (11.4-16.0) gm/dL Hct (34.0-46.0) % MCV (80.0-100.0) fL MCH (25.0-35.0) pg MCHC (31.0-37.0) g/dL RDW (11.5-15.5) % Plt Count (150-450) k/uL MPV Neutrophils % % Lymphocytes % % Monocytes % % Eosinophils % % Basophils % % Neutrophils # (1.3-7.7) k/uL Lymphocytes # (1.0-4.8) k/uL Monocytes # (0-1.0) k/uL Eosinophils # (0-0.7) k/uL Basophils # (0-0.2) k/uL Hypochromasia Sodium (137-145) mmol/L Potassium (3.5-5.1) mmol/L Chloride (98-107) mmol/L Carbon Dioxide (22-30) mmol/L Anion Gap mmol/L BUN (7-17) mg/dL Creatinine (0.52-1.04) mg/dL Est GFR (CKD-EPI)AfAm (>60 ml/min/1.73 sqM) Est GFR (CKD-EPI)NonAf (>60 ml/min/1.73 sqM) Glucose (74-99) mg/dL Plasma Lactic Acid Wade 1.1 (0.7-2.0) mmol/L Calcium (8.4-10.2) mg/dL Total Bilirubin (0.2-1.3) mg/dL AST (14-36) U/L ALT (4-34) U/L Alkaline Phosphatase (38-126) U/L Total Protein (6.3-8.2) g/dL Albumin (3.5-5.0) g/dL Amylase (30-110) U/L Lipase (23-300) U/L Urine Color Urine Appearance (Clear) Urine pH (5.0-8.0) Ur Specific [place] (1.001-1.035) Urine Protein (Negative) Urine Glucose (UA) (Negative) Urine Ketones (Negative) Urine Blood (Negative) Urine Nitrite (Negative) Urine Bilirubin (Negative) Urine Urobilinogen (<2.0) mg/dL Ur Leukocyte Esterase (Negative) Urine RBC (0-5) /hpf Urine WBC (0-5) /hpf Ur Squamous Epith Cells (0-4) /hpf Urine Bacteria (None) /hpf Hyaline Casts (0-2) /lpf Urine Mucus (None) /hpf Disposition <Nikko Proctor - Last Filed: 08/31/20 17:16> Is patient prescribed a controlled substance at d/c from ED?: No Time of Disposition: 17:24 <Yves Falk - Last Filed: 08/31/20 17:24> Clinical Impression: Cellulitis, Seroma, Urinary tract infection Disposition: ADMITTED IP TO THIS HOSP Condition: Fair Instructions (If sedation given, give patient instructions): Cellulitis (DC) Referrals: Deanna Leyva MD [Primary Care Provider] - 1-2 days
[2020-08-31 15:31] LABS: Basophils # (A) 0.1 k/uL (0-0.2); Basophils % (A) 0 %; Eosinophils # (A) 0.1 k/uL (0-0.7); Eosinophils % (A) 1 %; HCT 31.2 % (34.0-46.0); Hypochromasia Slight; Lymphocytes % (A) 9 %; MCH 28.4 pg (25.0-35.0); MCHC 32.7 g/dL (31.0-37.0); Mean Platelet Volume 6.8; Monocytes # (A) 1.1 k/uL (0-1.0); Monocytes % (A) 5 %; Neutrophils % (A) 83 %; Platelet Count 410 k/uL (150-450); RBC 3.59 m/uL (3.80-5.40); RDW 13.6 % (11.5-15.5); WBC 21.6 k/uL (3.8-10.6)
[2020-08-31 15:40] LABS: Appearance,Urine Cloudy (Clear); Bacteria,Urine Many /hpf; Bilirubin,Urine Negative (Negative); Blood,Urine Small (Negative); Color,Urine Yellow; Glucose,Urine (UA) Negative (Negative); Hyaline Casts,Urine 26 /lpf (0-2); Ketones,Urine 1+ (Negative); Leukocyte Esterase,Urine Moderate (Negative); Mucus,Urine Many /hpf; Nitrite,Urine Positive (Negative); PH, Urine 5.5 (5.0-8.0); Protein,Urine 1+ (Negative); RBC,Urine 3 /hpf (0-5); Specific Gravity,Urine 1.026 (1.001-1.035); Squamous Epithelial Cell,Urine 7 /hpf (0-4); Urobilinogen,Urine <2.0 mg/dL (<2.0); WBC,Urine 27 /hpf (0-5)
[2020-08-31 15:43] LABS: ALT 10 U/L (4-34); AST 22 U/L (14-36); African American GFR (CKD) >90 (>60 ml/min/1.73 sqM); Alkaline Phosphatase 106 U/L (38-126); Amylase 45 U/L (30-110); Anion Gap 10 mmol/L; Blood Urea Nitrogen 20 mg/dL (7-17); Calcium 8.9 mg/dL (8.4-10.2); Carbon Dioxide 25 mmol/L (22-30); Chloride 108 mmol/L (98-107); Glucose 113 mg/dL (74-99); Lipase 35 U/L (23-300); Non-African American GFR(CKD) >90 (>60 ml/min/1.73 sqM); Potassium 3.6 mmol/L (3.5-5.1); Sodium 143 mmol/L (137-145); Total Bilirubin 0.3 mg/dL (0.2-1.3); Total Protein 5.8 g/dL (6.3-8.2)
[2020-08-31 15:59] LABS: HGB 10.2 gm/dL (11.4-16.0)
[2020-08-31 16:00] LABS: MCV 86.9 fL (80.0-100.0)
--- NOTE | 2020-08-31 16:46 | CT ---
EXAMINATION TYPE: CT abdomen pelvis w con DATE OF EXAM: 08/31/2020 COMPARISON: NONE HISTORY: 65-year-old female Abdominal bloating and discomfort around panniculectomy site. TECHNIQUE: Contiguous axial scanning of the abdomen and pelvis following administration of 100 ml Iso sandra 300 IV contrast. Delayed images through the kidneys and coronal/sagittal reconstructions perform ed. CT DLP: 1264 mGycm Automated exposure control for dose reduction was used. FINDINGS: The heart is borderline enlarged without pericardial effusion. Strandy areas of prominent atelectasis in the lung bases. No pleural effusion. Moderate-sized hiatal hernia. Liver enlarged at 20.1 cm. No focal liver lesion. Portal venous system is patent. No biliary ductal d ilatation. Gallbladder, adrenal glands, and atrophic pancreas show no gross abnormal body. Spleen enlarged at 14.7 cm on coronal series with tiny anterior splenule. Numerous subcentimeter hypodensities within the renal cortices too small for accurate CT characteriza tion, likely tiny cysts. Punctate 3 mm nonobstructive right upper pole renal calculus. No dilated small bowel, free fluid, or free air. No mesenteric or retroperitoneal lymphadenopathy. Ri ght-sided colonic diverticulosis. Additional scattered mild diverticular change in the left side of t he colon. No pericolonic inflammatory change. Abdominal plasty postsurgical changes present at the umbilical and infraumbilical level. Large air an d fluid collection at the abdominal plasty site measuring up to 12.9 cm craniocaudal and measuring 17 .9 cm wide by 4.8 cm AP. Surrounding extensive fat stranding and overlying skin thickening. Uterus appears surgically absent. Neither ovary is visualized. Bones: Advanced degenerative disc disease and hypertrophic facet arthropathy throughout the lumbar sp ine or reversal of the normal lumbar lordosis. IMPRESSION: 1. POSTSURGICAL CHANGES OF ABDOMINOPLASTY WITH A LARGE AIR AND FLUID COLLECTION CENTERED IN THE SUBCU TANEOUS ADIPOSE LAYER DIRECTLY OVERLYING THE ABDOMINOPLASTY SITE MEASURING UP TO 12.9 CM CRANIOCAUDAL BY 17.9 CM WIDE BY 4.8 CM AP. SURROUNDING INFLAMMATION/CELLULITIS. 2. HEPATOSPLENOMEGALY (LIVER 20.1 CM AND SPLEEN 14.7 CM). 3. MODERATE-SIZED HIATAL HERNIA AND COLONIC DIVERTICULOSIS.
[2020-08-31] MEDS ORDERED: PIPERACILLIN-TAZOBACTAM 3.375 GM in SODIUM CHLORIDE 0.9% 100 ML IVPB STA (17:17)
[2020-08-31] MEDS ORDERED: NALOXONE 0.4 MG/ML 1 ML VIAL IV PRN (17:18)
[2020-08-31] MEDS ORDERED: MORPHINE SULFATE 4 MG/ML SYRINGE IV PRN (17:18)
[2020-08-31] MEDS ORDERED: LORazepam 2 MG/ML INJ IV PRN (17:18)
[2020-08-31] MEDS ORDERED: HYDROmorphone 0.5 MG/0.5 ML SYRINGE IVP PRN (17:18)
[2020-08-31] MEDS: ACETAMINOPHEN TAB 325 MG TAB PO PRN (18:33)
[2020-08-31] MEDS: SODIUM CHLORIDE 0.9% 1,000 ML IV SCH (18:34)
[2020-08-31] MEDS: PIPERACILLIN-TAZOBACTAM 3.375 GM in SODIUM CHLORIDE 0.9% 100 ML IVPB SCH (23:49)
[2020-09-01] MEDS: ACETAMINOPHEN TAB 325 MG TAB PO PRN ×4 (04:07→21:12)
[2020-09-01] MEDS: SODIUM CHLORIDE 0.9% 1,000 ML IV SCH ×2 (06:11→21:13)
[2020-09-01] MEDS: PIPERACILLIN-TAZOBACTAM 3.375 GM in SODIUM CHLORIDE 0.9% 100 ML IVPB SCH ×3 (08:00→23:51)
[2020-09-01] MEDS ORDERED: VANCOMYCIN IV PER PHARMACY 1 EACH MISC MISCELLANE PRN (08:36)
[2020-09-01] MEDS ORDERED: PANTOPRAZOLE 40 MG/10 ML VIAL IV SCH (09:00)
--- NOTE | 2020-09-01 11:26 | P.GSHP ---
History of Present Illness H&P Date: 09/01/20 CHIEF COMPLAINT: Infection at abdominal incision site HISTORY OF PRESENT ILLNESS: This is a 65-year-old female who had a panniculectomy on 07/03/2020. Patient reports over the last 2 weeks she's not iced increased swelling redness and warmth at the incision site. She denies any drainage. She started to have increasing pain and distention in the area. She also was very nauseated. She came into the ER for further evaluation and treatment. She also reports decrease in appetite and decrease in her bowel movements. She had a computed tomography scan of the abdomen and pelvis that shows postsurgical changes of the abdominoplasty with large air and fluid collection centered in the subcutaneous adipose layer directly overlying the abdominoplasty site measuring up to 12.9 cm x 17.9 cm wide by 4.8 cm AP. Surrounding inflammation/cellulitis. Hepatosplenomegaly. Moderate size hiatal hernia and colonic diverticulosis. Patient admitted to hospital for incisional cellulitis and seroma. She has been started on IV antibiotics. PAST MEDICAL HISTORY: See list. PAST SURGICAL HISTORY: See list. MEDICATIONS: See list. ALLERGIES: See list. SOCIAL HISTORY: No illicit drug use. REVIEW OF SYSTEMS: CONSTITUTIONAL: Denies fever or chills. HEENT: Denies blurred vision, vision changes, or eye pain. Denies hemoptysis CARDIOVASCULAR: Denies chest pain or pressure. RESPIRATORY: No shortness of breath. GASTROINTESTINAL: See HPI for pertinent findings HEMATOLOGIC: Denies bleeding disorders. GENITOURINARY: Denies any blood in urine or increased urinary frequency. SKIN: Denies pruitis. Denies rash. PHYSICAL EXAM: VITAL SIGNS: Reviewed GENERAL: Well-developed in no acute distress. HEENT: No sclera icterus. Extraocular movements grossly intact. Moist buccal mucosa. Head is atraumatic, normocephalic. No nasal drainage. ABDOMEN: Soft. Nondistended. Patient's incision site from her previous panniculectomy with large area of erythema surrounding the incision that had gone up to the umbilicus and starting to recede. Also goes down into the suprapubic area.. 2 Areas of induration along the incision site. The area on the right is open and starting to drain a clearish fluid. Tender with palpation NEUROLOGIC: Alert and oriented. Cranial nerves II through XII grossly intact. LABORATORY DATA: WBC 21.6 hemoglobin 10.2 platelets 410 sodium 143 creatinine 0.64 Urinalysis positive for infection IMAGING: computed tomography scan of the abdomen and pelvis that shows postsurgical changes of the abdominoplasty with large air and fluid collection centered in the subcutaneous adipose layer directly overlying the abdominoplasty site measuring up to 12.9 cm x 17.9 cm wide by 4.8 cm AP. Surrounding inflammation/cellulitis. Hepatosplenomegaly. Moderate size hiatal hernia and colonic diverticulosis. ASSESSMENT: 1. Cellulitis and seroma at surgical site of prior panniculectomy 2. Status post panniculectomy on 07/03/2020 3. UTI PLAN: -Consult interventional radiology for drainage of seroma -Advance diet to regular -Continue IV antibiotics -Send fluid for culture -Continue IV fluids -Continue pain medication as needed -Consult medicine service -GI prophylaxis Protonix and DVT prophylaxis subcu heparin Physician Pneumatic Riveter note has been reviewed by physician. Signing provider agrees with the documented findings, assessment, and plan of care. Past Medical History Past Medical History: Hypertension, Sleep Apnea/CPAP/BIPAP Additional Past Medical History / Comment(s): NEUROPATHY, DEPRESSION, ARTHRITIS, CPAP use. History of Any Multi-Drug Resistant Organisms: None Reported Past Surgical History: Appendectomy, Hysterectomy Additional Past Surgical History / Comment(s): LEFT TOTAL KNEE REPLACEMENT, BILATERAL CATARACTS, Pain Clinic Procedures., panniculetomy Past Anesthesia/Blood Transfusion Reactions: No Reported Reaction, Motion Sickness Past Psychological History: Depression Smoking Status: Never smoker Past Alcohol Use History: Rare Past Drug Use History: None Reported - Past Family History Mother Family Medical History: No Reported History Sister(s) Family Medical History: Cancer Additional Family Medical History / Comment(s): Uterine cancer. Medications and Allergies Home Medications Medication Instructions Recorded Confirmed Type Acetaminophen [Tylenol] 1,500 mg PO ONETIME PRN 01/10/20 08/31/20 History Gabapentin [Neurontin] 300 mg PO BID 01/10/20 08/31/20 History Lisinopril [Zestril] 10 mg PO HS #0 01/15/20 08/31/20 Rx Ibuprofen [Motrin Ib] 800 mg PO ONETIME PRN 08/31/20 08/31/20 History Multivitamins, Thera [Multivitamin 1 tab PO DAILY 08/31/20 08/31/20 History (formulary)] buPROPion HCL [Wellbutrin SR] 200 mg PO BID 08/31/20 08/31/20 History Allergies Allergy/AdvReac Type Severity Reaction Status Date / Time No Known Allergies Allergy Verified 08/31/20 18:20 Surgical - Exam Vital Signs Temp Pulse Resp BP Pulse Ox 97.9 F 91 18 106/75 97 08/31/20 13:01 08/31/20 13:01 08/31/20 13:01 08/31/20 13:01 08/31/20 13:01 Results - Labs 08/31/20 15:05 08/31/20 15:05 Abnormal Lab Results - Last 24 Hours (Table) 08/31/20 08/31/20 08/31/20 Range/Units 15:05 15:05 15:05 WBC 21.6 H (3.8-10.6) k/uL RBC 3.59 L (3.80-5.40) m/uL Hgb 10.2 L D (11.4-16.0) gm/dL Hct 31.2 L (34.0-46.0) % Neutrophils # 18.0 H (1.3-7.7) k/uL Monocytes # 1.1 H (0-1.0) k/uL Chloride 108 H (98-107) mmol/L BUN 20 H (7-17) mg/dL Glucose 113 H (74-99) mg/dL Total Protein 5.8 L (6.3-8.2) g/dL Albumin 3.0 L (3.5-5.0) g/dL Urine Appearance Cloudy H (Clear) Urine Protein 1+ H (Negative) Urine Ketones 1+ H (Negative) Urine Blood Small H (Negative) Urine Nitrite Positive H (Negative) Ur Leukocyte Esterase Moderate H (Negative) Urine WBC 27 H (0-5) /hpf Ur Squamous Epith Cells 7 H (0-4) /hpf Urine Bacteria Many H (None) /hpf Hyaline Casts 26 H (0-2) /lpf Urine Mucus Many H (None) /hpf Microbiology - Last 24 Hours (Table) 08/31/20 15:05 Urine Culture - Preliminary Urine,Voided Diabetes panel 08/31/20 Range/Units 15:05 Sodium 143 (137-145) mmol/L Potassium 3.6 (3.5-5.1) mmol/L Chloride 108 H (98-107) mmol/L Carbon Dioxide 25 (22-30) mmol/L BUN 20 H (7-17) mg/dL Creatinine 0.64 (0.52-1.04) mg/dL Glucose 113 H (74-99) mg/dL Calcium 8.9 (8.4-10.2) mg/dL AST 22 (14-36) U/L ALT 10 (4-34) U/L Alkaline Phosphatase 106 (38-126) U/L Total Protein 5.8 L (6.3-8.2) g/dL Albumin 3.0 L (3.5-5.0) g/dL Calcium panel 08/31/20 Range/Units 15:05 Calcium 8.9 (8.4-10.2) mg/dL Albumin 3.0 L (3.5-5.0) g/dL Pituitary panel 08/31/20 Range/Units 15:05 Sodium 143 (137-145) mmol/L Potassium 3.6 (3.5-5.1) mmol/L Chloride 108 H (98-107) mmol/L Carbon Dioxide 25 (22-30) mmol/L BUN 20 H (7-17) mg/dL Creatinine 0.64 (0.52-1.04) mg/dL Glucose 113 H (74-99) mg/dL Calcium 8.9 (8.4-10.2) mg/dL Adrenal panel 08/31/20 Range/Units 15:05 Sodium 143 (137-145) mmol/L Potassium 3.6 (3.5-5.1) mmol/L Chloride 108 H (98-107) mmol/L Carbon Dioxide 25 (22-30) mmol/L BUN 20 H (7-17) mg/dL Creatinine 0.64 (0.52-1.04) mg/dL Glucose 113 H (74-99) mg/dL Calcium 8.9 (8.4-10.2) mg/dL Total Bilirubin 0.3 (0.2-1.3) mg/dL AST 22 (14-36) U/L ALT 10 (4-34) U/L Alkaline Phosphatase 106 (38-126) U/L Total Protein 5.8 L (6.3-8.2) g/dL Albumin 3.0 L (3.5-5.0) g/dL
--- NOTE | 2020-09-01 12:59 | P.CONS ---
History of Present Illness - Reason for Consult Consult date: 09/01/20 Medical management - History of Present Illness HISTORY OF PRESENT ILLNESS This is a 65-year-old female patient of Dr. Leyva with past medical history of hypertension, obstructive sleep apnea, neuropathy, recurrent depression. Patient underwent panniculectomy on 07/03/2020 and has noticed increased abdominal distention, redness in her lower abdomen. The past week. She denies having any drainage. She does complain of nausea without vomiting. No fever or chills. She does complain of constipation and decreased appetite. Patient came into [facility] for evaluation. She was afebrile, heart rate 91, blood pressure 106/75, pulse ox 97%. WBC 21.6, hemoglobin 10.2 and platelet count 410. Electrolytes unremarkable. Creatinine 0.64. Blood sugar 113. Lactic acid 1.1. Liver function tests were normal. Blood sugar 113. Urinalysis cloudy with nitrate positive, leukoesterase moderate, bacteria many. CAT scan of the abdomen and pelvis with contrast revealed postsurgical changes of abdominoplasty with large air and fluid collection centered in the kellogg bcutaneous adipose layer directly overlying the abdominal plasty site measuring up to 12.9 cm x 17.9 x 4.8 with surrounding inflammation cellulitis. Hepatosplenomegaly. Moderate sized hiatal hernia and colonic diverticulosis. Patient was admitted to the pediatric/MedSurg floor and started on IV an tibiotics in the form of Zosyn and vancomycin added. Consult in place with infectious disease and interventional radiology for abdominal drainage. REVIEW OF SYSTEMS Constitutional: No fever, no chills, no night sweats. No weight change. No weakness, fatigue or lethargy. No daytime sleepiness. EENT: No headache. No blurred vision or double vision, no loss of vision. No loss of Hearing, no ringing in the ears, no dizziness. No nasal drainage or congestion. No epistaxis. No sore throat. Lungs: No shortness of breath, cough, no sputum production. No wheezing. Cardiovascular: No chest pain, no lower extremity edema. No palpitations. No paroxysmal nocturnal dyspnea. No orthopnea. No lightheadedness or dizziness. No syncopal episodes. Abdominal: Reports abdominal pain. Reports nausea, no vomiting. No diarrhea. Reports constipation. No bloody or tarry stools reports loss of appetite. Genitourinary: No dysuria, increased frequency, urgency. No urinary retention. Musculoskeletal: No myalgias. No muscle weakness, no gait dysfunction, no frequent falls. No back pain. No neck pain. Integumentary: Reports wounds, no lesions. No rash or pruritus. No unusual bruising. No change in hair or nails. Neurologic: No aphasia. No facial droop. No change in mentation. No head injury. No headache. No paralysis. No paresthesia. Psychiatric: No depression. No anxiety. No mood swings. Endocrine: No abnormal blood sugars. No weight change. No excessive sweating or thirst. No cold intolerance. SOCIAL HISTORY The patient is a nonsmoker, occasional alcohol use. She lives alone. FAMILY HISTORY Mother is alive with no history of coronary artery disease. Father is alive with history of diabetes. Patient has one brother with diabetes and one sister with diabetes. One sister has from some cirrhosis of the liver. Patient has 3 children with no major medical problems. PHYSICAL EXAMINATION Gen: This is a 65-year-old obese female. Patient is resting in bed and appears to be comfortable. HEENT: Head is atraumatic, normocephalic. Pupils equal, round. Sclerae is anicteric. NECK: Supple. No JVD. No lymphadenopathy. No thyromegaly. LUNGS: Clear to auscultation. No wheezes or rhonchi. No intercostal retractions. HEART: Regular rate and rhythm. No murmur. ABDOMEN: Soft. Bowel sounds are present. No masses. Significant redness/erythema to the lower abdominal regions bilaterally with tenderness. An open area on the right. EXTREMITIES: No pedal edema. No calf tenderness. NEUROLOGICAL: Patient is awake, alert and oriented x3. Cranial nerves 2 through 12 are grossly intact. ASSESSMENT AND PLAN 1. Cellulitis and seroma at surgical site of prior panniculectomy. Interventional radiology has been consult for drainage of seroma, diet advanced by general surgery. Continue antibiotics the form of Zosyn and vancomycin, ID consultation. 2. Recent panniculectomy on 07/03/2020. 3. Acute urinary tract infection. Continue Zosyn, await urine culture results. 4. Hypertension. Continue lisinopril 10 mg at bedtime 5. Obstructive sleep apnea. 6. Gastroesophageal reflux disease. Continue Protonix. 7. DVT prophylaxis. Heparin subcu. Patient will be admitted to the hospital for a minimum of 2 night stay. DISCHARGE PLAN Home. Impression and plan of care have been directed as dictated by the signing physician. Michelle Wick nurse practitioner acting as scribe for signing phys ician. Past Medical History Past Medical History: Hypertension, Sleep Apnea/CPAP/BIPAP Additional Past Medical History / Comment(s): NEUROPATHY, DEPRESSION, ARTHRITIS, CPAP use. History of Any Multi-Drug Resistant Organisms: None Reported Past Surgical History: Appendectomy, Hysterectomy Additional Past Surgical History / Comment(s): LEFT TOTAL KNEE REPLACEMENT, BILATERAL CATARACTS, Pain Clinic Procedures., panniculetomy Past Anesthesia/Blood Transfusion Reactions: No Reported Reaction, Motion Sickness Past Psychological History: Depression Smoking Status: Never smoker Past Alcohol Use History: Rare Past Drug Use History: None Reported - Past Family History Mother Family Medical History: No Reported History Sister(s) Family Medical History: Cancer Additional Family Medical History / Comment(s): Uterine cancer. Medications and Allergies Home Medications Medication Instructions Recorded Confirmed Type Acetaminophen [Tylenol] 1,500 mg PO ONETIME PRN 01/10/20 08/31/20 History Gabapentin [Neurontin] 300 mg PO BID 01/10/20 08/31/20 History Lisinopril [Zestril] 10 mg PO HS #0 01/15/20 08/31/20 Rx Ibuprofen [Motrin Ib] 800 mg PO ONETIME PRN 08/31/20 08/31/20 History Multivitamins, Thera [Multivitamin 1 tab PO DAILY 08/31/20 08/31/20 History (formulary)] buPROPion HCL [Wellbutrin SR] 200 mg PO BID 08/31/20 08/31/20 History Allergies Allergy/AdvReac Type Severity Reaction Status Date / Time No Known Allergies Allergy Verified 08/31/20 18:20 Physical Exam Vitals: Vital Signs Temp Pulse Pulse Resp BP BP Pulse Ox 09/01/20 08:20 98.1 F 82 16 97/60 95 09/01/20 02:00 98.8 F 90 16 106/69 94 L 08/31/20 20:00 98 F 92 18 103/65 94 L 08/31/20 19:07 91 18 100/63 94 L 08/31/20 13:01 97.9 F 91 18 106/75 97 Intake and Output 08/31/20 09/01/20 09/01/20 22:59 06:59 14:59 Intake Total 120 0 Output Total 400 Balance 120 -400 Intake: Oral 120 0 Output: Urine 400 Other: # Voids 1 1 1 Weight 75.4 kg Results CBC & Chem 7: 08/31/20 15:05 08/31/20 15:05 Labs: Abnormal Lab Results - Last 24 Hours (Table) 08/31/20 08/31/20 08/31/20 Range/Units 15:05 15:05 15:05 WBC 21.6 H (3.8-10.6) k/uL RBC 3.59 L (3.80-5.40) m/uL Hgb 10.2 L D (11.4-16.0) gm/dL Hct 31.2 L (34.0-46.0) % Neutrophils # 18.0 H (1.3-7.7) k/uL Monocytes # 1.1 H (0-1.0) k/uL Chloride 108 H (98-107) mmol/L BUN 20 H (7-17) mg/dL Glucose 113 H (74-99) mg/dL Total Protein 5.8 L (6.3-8.2) g/dL Albumin 3.0 L (3.5-5.0) g/dL Urine Appearance Cloudy H (Clear) Urine Protein 1+ H (Negative) Urine Ketones 1+ H (Negative) Urine Blood Small H (Negative) Urine Nitrite Positive H (Negative) Ur Leukocyte Esterase Moderate H (Negative) Urine WBC 27 H (0-5) /hpf Ur Squamous Epith Cells 7 H (0-4) /hpf Urine Bacteria Many H (None) /hpf Hyaline Casts 26 H (0-2) /lpf Urine Mucus Many H (None) /hpf Microbiology - Last 24 Hours (Table) 08/31/20 15:05 Urine Culture - Preliminary Urine,Voided
[2020-09-01] MEDS: VANCOMYCIN 1,250 MG in SODIUM CHLORIDE 0.9% 250 ML IVPB SCH (14:43)
--- NOTE | 2020-09-01 16:41 | US ---
EXAMINATION TYPE: US guided soft tissue drainage DATE OF EXAM: 09/01/2020 HISTORY: Postop abscess Correlation CT scan 08/31/2020 FINDINGS: Maximal barrier technique was utilized. The skin overlying a suitable path to the fluid wi thin the subcutaneous fat the anterior abdominal wall was localized with ultrasound and the overlying skin prepped and draped. Lidocaine was used for local anesthesia. A skin sheng made with a scalpel. Access was gained under direct ultrasound guidance to the fluid with a 21-gauge needle. Ultrasound was utilized using sterile technique. A 0.018 inch wire was advanced. Access site was dilated and a n 8-German catheter advanced into the abdominal wall abscess. Cloudy yellow fluid obtained for labor atory analysis, approximately 30 cc were drained. Catheter fixed to the skin. Hemostasis achieved. No immediate complication and the patient remained in stable condition. IMPRESSION: STATUS POST ULTRASOUND GUIDED ABSCESS DRAINAGE, THIS PROCEDURE WAS PERFORMED BY THE UNDER SIGNED. Of note the abscess appears multilocular as noted on CT
[2020-09-01] MEDS ORDERED: ONDANSETRON 4 MG/2 ML VIAL IVP PRN (17:34)
[2020-09-01] MEDS ORDERED: lisinopriL 10 MG TAB PO SCH (21:00)
[2020-09-01] MEDS: GABAPENTIN 300 MG CAP PO SCH (21:12)
[2020-09-01] MEDS: buPROPion SR 100 MG TABLET.ER PO SCH (21:12)
[2020-09-01] MEDS: HEPARIN SODIUM,PORCINE/PF 5,000 UNIT/0.5 ML SYRINGE SQ SCH (21:12)
[2020-09-02] MEDS: VANCOMYCIN 1,250 MG in SODIUM CHLORIDE 0.9% 250 ML IVPB SCH ×4 (02:38→15:32)
--- NOTE | 2020-09-02 05:18 | CONS ---
CONSULTATION DATE OF SERVICE: 09/01/2020 REASON FOR CONSULTATION: Abdominal infection. HISTORY OF PRESENT ILLNESS: The patient is a 65-year-old female with a recent history of abdominoplasty on 07/05/2020. The patient mentioned she did have multiple drains and was doing okay postoperatively. The drain was removed about 10 days ago. Since then the patient is having increasing swelling to the lower abdominal area that has progressively gotten worse and did become more swollen and red and painful. Pain is more of a dull aching 4- 5/10 with no radiation. The patient did have some chills with worsening pain, swelling and redness. The patient presented to [facility] yesterday afternoon. The patient was evaluated by the ER physician. On arrival to the ER, the patient was afebrile, however she did have a white count of 21,600. The patient did have a normal creatinine. Urine was positive. She did have small area that was draining from which the nurses have obtained a culture. The patient did have a CT of abdomen and pelvis completed yesterday afternoon and in did show there was postsurgical changes of abdominoplasty with large air and fluid collection centered in the subcutaneous adipose layer directly overlying the abdominoplasty, measuring up to 12.9 cm x 17.9 cm wide. The patient was started on vancomycin and admitted to the hospital. The patient did have ultrasound-guided drainage of this fluid completed by Interventional Radiology. Infectious Disease was consulted for further management of antibiotic therapy. REVIEW OF SYSTEMS: Positive points have been mentioned in HPI. Rest of the systems are negative. PAST MEDICAL HISTORY: Hypertension, sleep apnea, depression, neuropathy, arthritis. PAST SURGICAL HISTORY: Appendectomy, hysterectomy, left total knee replacement, bilateral cataract surgery, panniculectomy on 07/05/2020. SOCIAL HISTORY: No history of smoking. Rarely drinks. No drug use. FAMILY HISTORY: Sister with history of uterine cancer. ALLERGIES: No known drug allergies. MEDICATIONS: The patient is currently on Tylenol, Wellbutrin, Neurontin, heparin, Dilaudid, Ativan, morphine sulfate, Narcan, Zofran, Protonix, Zosyn and vancomycin. PHYSICAL EXAMINATION: VITAL SIGNS: Blood pressure 99/56 with a pulse of 73, temperature 97.8, she is 97% on room air. GENERAL DESCRIPTION: Patient is an elderly female lying in bed in no distress. No tachypnea or accessory muscles of respiration use. HEENT: Examination shows slight pallor, no scleral icterus. Oral mucous membrane is dry. NECK: Trachea central, no thyromegaly. LUNGS: Unlabored breathing, clear to auscultation anteriorly. No wheeze or crackle. HEART: S1-S2, regular rate and rhythm. ABDOMEN: Soft. Lower abdominal area did have area of swelling, redness, slight induration and . EXTREMITIES: No edema of the feet. SKIN: No rash or mass palpable. NEUROLOGICAL: Patient is awake, alert, oriented times three. Mood and affect normal. LABS: Hemoglobin is 10.1, white count 21.6, BUN of 20, creatinine 0.64. Liver enzymes are normal. Electrolytes are normal. Urine was positive. CT of abdomen and pelvis report as mentioned above. DIAGNOSTIC IMPRESSION: Patient presented to the hospital with abdominal pain, swelling and redness in this patient who did have a history of abdominoplasty with worsening swelling and redness after the drains were removed. We will need to cover for both Gram-positive skin dahiana as well as gram-negative pathogen. This patient is status post ultrasound-guided drainage of this fluid. PLAN: 1. The patient to continue vancomycin Pharmacy to dose target of 15, and Zosyn while watching the kidney function closely. 2. We will follow her clinical condition as well as culture to further adjust medication if needed. Thank you for this consultation. Will follow this patient along with you. MMODL / IJN: [id number] /
[2020-09-02 05:26] LABS: Basophils % (A) 0 %; Eosinophils # (A) 0.2 k/uL (0-0.7); Eosinophils % (A) 1 %; HGB 8.9 gm/dL (11.4-16.0); Hypochromasia Marked; Lymphocytes # (A) 1.9 k/uL (1.0-4.8); Lymphocytes % (A) 13 %; MCH 27.7 pg (25.0-35.0); MCHC 30.6 g/dL (31.0-37.0); MCV 90.6 fL (80.0-100.0); Mean Platelet Volume 6.7; Monocytes # (A) 0.7 k/uL (0-1.0); Monocytes % (A) 5 %; Neutrophils # (A) 11.9 k/uL (1.3-7.7); Neutrophils % (A) 79 %; Platelet Count 330 k/uL (150-450); RBC 3.21 m/uL (3.80-5.40); RDW 13.9 % (11.5-15.5)
[2020-09-02 05:37] LABS: African American GFR (CKD) >90 (>60 ml/min/1.73 sqM); Anion Gap 6 mmol/L; Blood Urea Nitrogen 13 mg/dL (7-17); Calcium 8.2 mg/dL (8.4-10.2); Carbon Dioxide 24 mmol/L (22-30); Chloride 111 mmol/L (98-107); Glucose 108 mg/dL (74-99); Non-African American GFR(CKD) >90 (>60 ml/min/1.73 sqM); Potassium 3.2 mmol/L (3.5-5.1); Sodium 141 mmol/L (137-145)
[2020-09-02] MEDS ORDERED: POTASSIUM CHLORIDE ER 20 MEQ TAB.ER PO STA (08:03)
[2020-09-02] MEDS: GABAPENTIN 300 MG CAP PO SCH ×2 (08:14→20:14)
[2020-09-02] MEDS: PANTOPRAZOLE 40 MG TABLET PO SCH (08:14)
[2020-09-02] MEDS: buPROPion SR 100 MG TABLET.ER PO SCH ×2 (08:15→20:14)
[2020-09-02] MEDS: PIPERACILLIN-TAZOBACTAM 3.375 GM in SODIUM CHLORIDE 0.9% 100 ML IVPB SCH ×3 (08:16→23:40)
[2020-09-02] MEDS: HEPARIN SODIUM,PORCINE/PF 5,000 UNIT/0.5 ML SYRINGE SQ SCH ×2 (08:16→20:14)
[2020-09-02] MEDS: ACETAMINOPHEN TAB 325 MG TAB PO PRN ×2 (08:18→18:40)
[2020-09-02] MEDS: SENNOSIDES-DOCUSATE SODIUM 1 EACH TAB PO SCH (10:59)
--- NOTE | 2020-09-02 13:48 | P.PN ---
<Enriqueta Curry - Last Filed: 09/02/20 13:42> Subjective Progress Note Date: 09/02/20 CHIEF COMPLAINT: Cellulitis and seroma had prior surgical site HISTORY OF PRESENT ILLNESS: Patient is hospitalized for cellulitis and seroma at surgical site of prior panniculectomy. Panniculectomy had been completed on 07/03/2020. Patient is status post ultrasound-guided drainage of fluid collection. Infectious disease is following. Patient is currently on IV antibiotics. She does report this decrease in erythema and swelling at the incision site. White count has come down from 21-15. Hemoglobin is 8.9. Potassium 3.2 and being replaced. urine culture did grew gram-negative bacilli. She is on a regular diet. She's afebrile. She is reporting of constipation no bowel movement for about 6 days. Medicine service has started her on a stool softener. Patient also states her appetite is decreased. Glucerna shakes have been added. Patient has minimal pain. She reports controlled. PHYSICAL EXAM: VITAL SIGNS: Reviewed. GENERAL: Well-developed in no acute distress. HEENT: No sclera icterus. Extraocular movements grossly intact. Moist buccal mucosa. Head is atraumatic, normocephalic. ABDOMEN: Soft. Nondistended. Patient's incision site from her previous panniculectomy with large area of erythema surrounding the incision is decreasing. Patient has a drainage tube in place with purulent drainage. NEUROLOGIC: Alert and oriented. Cranial nerves II through XII grossly intact. ASSESSMENT: 1. Cellulitis and seroma at surgical site of prior panniculectomy status will ultrasound guided drainage 2. Status post panniculectomy on 07/03/2020 3. UTI PLAN: -Antibiotics per ID -Add Glucerna shakes -Replace potassium -Continue regular diet -Follow up on fluid culture results -Encouraged patient to increase activity -GI prophylaxis Protonix and DVT prophylaxis subcu heparin Physician Financial Advisor note has been reviewed by physician. Signing provider agrees with the documented findings, assessment, and plan of care. Objective - Vital Signs Vital signs: Vital Signs Temp 98.2 F 09/02/20 08:26 Pulse 79 09/02/20 08:26 Resp 16 09/02/20 08:30 BP 107/66 09/02/20 08:26 Pulse Ox 99 09/02/20 11:37 Intake & Output 09/01/20 09/02/20 09/02/20 18:59 06:59 18:59 Intake Total 222 Output Total 175 500 Balance -175 -278 Intake: Oral 222 Output: Drainage 175 200 Lower Medial Abdomen 175 200 Urine 300 Other: Voiding Method Toilet Toilet # Voids 1 1 # Bowel Movements 1 - Labs CBC & Chem 7: 09/02/20 05:13 09/02/20 12:16 Labs: Abnormal Lab Results - Last 24 Hours (Table) 09/02/20 09/02/20 09/02/20 Range/Units 05:13 05:13 12:16 WBC 15.0 H (3.8-10.6) k/uL RBC 3.21 L (3.80-5.40) m/uL Hgb 8.9 L (11.4-16.0) gm/dL Hct 29.0 L (34.0-46.0) % MCHC 30.6 L (31.0-37.0) g/dL Neutrophils # 11.9 H (1.3-7.7) k/uL Potassium 3.2 L 3.4 L (3.5-5.1) mmol/L Chloride 111 H (98-107) mmol/L Creatinine 0.45 L (0.52-1.04) mg/dL Glucose 108 H (74-99) mg/dL Calcium 8.2 L (8.4-10.2) mg/dL Microbiology - Last 24 Hours (Table) 09/01/20 16:15 Gram Stain - Preliminary Aspirate Body Fluid Culture - Preliminary 09/01/20 09:25 Gram Stain - Preliminary Abdomen Wound Culture - Preliminary 09/01/20 16:15 Anaerobic Culture - Preliminary Aspirate 08/31/20 15:05 Urine Culture - Preliminary Urine,Voided Gram Neg Bacilli 08/31/20 15:05 Blood Culture - Preliminary Blood No Growth after 24 hours 08/31/20 15:05 Blood Culture - Preliminary Blood No Growth after 24 hours <Frieda Holliday - Last Filed: 09/05/20 18:27> Subjective CHIEF COMPLAINT: Panniculitis with infection HISTORY OF PRESENT ILLNESS: The patient is a 65-year-old female status post panniculectomy over 1-2 months ago presented with seroma and infection and cellulitis. She presented with UTI and had CT-guided drainage of her seroma. She is tolerating diet. ROS: No reports of nausea and vomiting. No fevers or chills. No new chest pain. No productive sputum PHYSICAL EXAM: VITAL SIGNS: Reviewed CONSTITUTIONAL: Well developed and in no acute distress. EYES: Conjuctivae without sclera icterus. Extraocular movements grossly intact. HEAD, EARS, NOSE, THROAT: Moist buccal mucosa. Head is atraumatic, normoc ephalic. Hears conversational speech. No nasal drainage. RESPIRATORY: Non-labored respirations and equal bilateral excursions. CARDIOVASCULAR: Palpable 2+ radial pulses. ABDOMEN: No peritonitis. Cellulitis along abdomen MUSCULOSKELETAL: No gross deformity of the lower extremities noted. No club kemi. No cyanosis. SKIN: Good skin turgor. Well perfused. NEUROLOGIC: Cranial nerves II through XII grossly intact. No focal or lateralizing signs. PSYCH: Appropriate affect. Alert and oriented to person, place and time. CLINICAL LABS: White blood cell count elevated 21.6 on admission. ASSESSMENT: 1. Cellulitis status post panniculectomy PLAN: 1. Continue IV antibiotics 2. Management of antibiotics per infectious disease 3. Continue CT-guided drain Objective - Vital Signs Vital signs: Vital Signs Temp 97.5 F L 09/03/20 14:01 Pulse 83 09/03/20 14:01 Resp 18 09/03/20 14:01 BP 104/56 09/03/20 14:01 Pulse Ox 96 09/03/20 14:01 - Labs CBC & Chem 7: 09/03/20 05:27 09/03/20 05:27 Labs: Microbiology - Last 24 Hours (Table) 08/31/20 15:05 Blood Culture - Preliminary Blood No Growth after 120 hours 08/31/20 15:05 Blood Culture - Preliminary Blood No Growth after 120 hours 09/01/20 16:15 Gram Stain - Preliminary Aspirate Body Fluid Culture - Preliminary Assessment and Plan (1) Panniculitis Status: Acute Code(s): M79.3 - PANNICULITIS, UNSPECIFIED SNOMED Code(s): 28532722 (2) Cellulitis Status: Acute Code(s): L03.90 - CELLULITIS, UNSPECIFIED SNOMED Code(s): 280948291 (3) Seroma Status: Acute Code(s): QWM6257 - SNOMED Code(s): 166345117
--- NOTE | 2020-09-02 14:45 | P.PN ---
Subjective Progress Note Date: 09/02/20 HISTORY OF PRESENT ILLNESS This is a 65-year-old female patient of Dr. Leyva with past medical history of hypertension, obstructive sleep apnea, neuropathy, recurrent depression. Tera hassan underwent panniculectomy on 07/03/2020 and has noticed increased abdominal distention, redness in her lower abdomen. The past week. She denies having any drainage. She does complain of nausea without vomiting. No fever or chills. She does complain of constipation and decreased appetite. Patient came into [facility] emergency center for evaluation. She was afebrile, heart rate 91, blood pressure 106/75, pulse ox 97%. WBC 21.6, hemoglobin 10.2 and platelet count 410. Electrolytes unremarkable. Creatinine 0.64. Blood sugar 113. Lactic acid 1.1. Liver function tests were normal. Blood sugar 113. Urinalysis cloudy with nitrate positive, leukoesterase moderat e, bacteria many. CAT scan of the abdomen and pelvis with contrast revealed postsurgical changes of abdominoplasty with large air and fluid collection centered in the subcutaneous adipose layer directly overlying the abdominal plasty site measuring up to 12.9 cm x 17.9 x 4.8 with surrounding inflammation cellulitis. Hepatosplenomegaly. Moderate sized hiatal hernia and colonic diverticulosis. Patient was admitted to the pediatric/MedSurg floor and started on IV antibiotics in the form of Zosyn and vancomycin added. Consult in place with infectious disease and interventional radiology for abdominal drainage. 09/02: Patient underwent drainage of seroma yesterday by Dr. Ledezma with removal of 30 cc of cloudy yellow fluid which has been sent for culture. Urine culture is positive for GNB. Blood culture is no growth afer 24 hours. Patient has been afebrile, HR 79, BP 107/66, PO 91-97% on room air. Repeat blood work reveals WBC 15.0, HGB 8.9, PLT 330. Sodium 141, K 3.2, chloride 111, CO2 24, BUN 13 and creatinine 0.45. Blood sugar 108. Patient is continued on Zosyn and vancomycin. Patient states her pain is about the same as yesterday. She is a drain in place. No diarrhea. She does continue to have nausea. Her last bowel movement was 5 days ago. Erythema is improved. Patient will be started on Senokot-S 2 tablets daily. REVIEW OF SYSTEMS Constitutional: No fever, no chills, no night sweats. No weight change. No weakness, fatigue or lethargy. No daytime sleepiness. EENT: No headache. No blurred vision or double vision, no loss of vision. No loss of Hearing, no ringing in the ears, no dizziness. No nasal drainage or congestion. No epistaxis. No sore throat. Lungs: No shortness of breath, cough, no sputum production. No wheezing. Cardiovascular: No chest pain, no lower extremity edema. No palpitations. No paroxysmal nocturnal dyspnea. No orthopnea. No lightheadedness or dizziness. No syncopal episodes. Abdominal: Reports abdominal pain. Reports nausea, no vomiting. No diarrhea. Reports constipation. No bloody or tarry stools reports loss of appetite. Genitourinary: No dysuria, increased frequency, urgency. No urinary retention. Musculoskeletal: No myalgias. No muscle weakness, no gait dysfunction, no frequent falls. No back pain. No neck pain. Integumentary: Reports wounds, no lesions. No rash or pruritus. No unusual bruising. No change in hair or nails. Neurologic: No aphasia. No facial droop. No change in mentation. No head injury. No headache. No paralysis. No paresthesia. Psychiatric: No depression. No anxiety. No mood swings. Endocrine: No abnormal blood sugars. PHYSICAL EXAMINATION Gen: This is a 65-year-old obese female. Patient is resting in bed an d appears to be comfortable. HEENT: Head is atraumatic, normocephalic. Pupils equal, round. Sclerae is anicteric. NECK: Supple. No JVD. No lymphadenopathy. No thyromegaly. LUNGS: Clear to auscultation. No wheezes or rhonchi. No intercostal retractions. HEART: Regular rate and rhythm. No murmur. ABDOMEN: Soft. Bowel sounds are present. No masses. Erythema improved. Drainage bag in place with. EXTREMITIES: No pedal edema. No calf tenderness. NEUROLOGICAL: Patient is awake, alert and oriented x3. Cranial nerves 2 through 12 are grossly intact. ASSESSMENT AND PLAN 1. Cellulitis and seroma at surgical site of prior panniculectomy. Status post drainage of seroma, cultures in process, diet advanced by general surgery. Continue antibiotics the form of vancomycin, ID consultation appreciated. 2. Recent panniculectomy on 07/03/2020. 3. Acute urinary tract infection. Continue Zosyn, await urine culture results. 4. Hypertension. Continue lisinopril 10 mg at bedtime 5. Obstructive sleep apnea. 6. Gastroesophageal reflux disease. Continue Protonix. 7. DVT prophylaxis. Heparin subcu. 8. Constipation. Senokot S-2 tablets daily ordered. DISCHARGE PLAN Home. Impression and plan of care have been directed as dictated by the signing physician. Michelle Wick nurse practitioner acting as scribe for signing physician. Objective - Vital Signs Vital signs: Vital Signs Temp 98.2 F 09/02/20 08:26 Pulse 79 09/02/20 08:26 Resp 16 09/02/20 08:26 BP 107/66 09/02/20 08:26 Pulse Ox 91 L 09/02/20 08:26 Intake & Output 09/01/20 09/02/20 09/02/20 18:59 06:59 18:59 Intake Total 222 Output Total 175 500 Balance -175 -278 Intake: Oral 222 Output: Drainage 175 200 Lower Medial Abdomen 175 200 Urine 300 Other: Voiding Method Toilet # Voids 1 1 - Labs CBC & Chem 7: 09/02/20 05:13 09/02/20 12:16 Labs: Abnormal Lab Results - Last 24 Hours (Table) 09/02/20 09/02/20 Range/Units 05:13 05:13 WBC 15.0 H (3.8-10.6) k/uL RBC 3.21 L (3.80-5.40) m/uL Hgb 8.9 L (11.4-16.0) gm/dL Hct 29.0 L (34.0-46.0) % MCHC 30.6 L (31.0-37.0) g/dL Neutrophils # 11.9 H (1.3-7.7) k/uL Potassium 3.2 L (3.5-5.1) mmol/L Chloride 111 H (98-107) mmol/L Creatinine 0.45 L (0.52-1.04) mg/dL Glucose 108 H (74-99) mg/dL Calcium 8.2 L (8.4-10.2) mg/dL Microbiology - Last 24 Hours (Table) 09/01/20 16:15 Gram Stain - Preliminary Aspirate Body Fluid Culture - Preliminary 09/01/20 09:25 Gram Stain - Preliminary Abdomen Wound Culture - Preliminary 09/01/20 16:15 Anaerobic Culture - Preliminary Aspirate 08/31/20 15:05 Urine Culture - Preliminary Urine,Voided Gram Neg Bacilli 08/31/20 15:05 Blood Culture - Preliminary Blood No Growth after 24 hours 08/31/20 15:05 Blood Culture - Preliminary Blood No Growth after 24 hours
[2020-09-02] MEDS: SODIUM CHLORIDE 0.9% 1,000 ML IV SCH ×2 (15:32→23:42)
--- NOTE | 2020-09-02 18:10 | PN ---
PROGRESS NOTE REASON FOR FOLLOWUP: Infected abdominal seroma. INTERVAL HISTORY: Patient is afebrile. The patient has abdominal discomfort, slightly decreased. Denies having any chest pain. No shortness of breath or cough. No nausea, vomiting or diarrhea. PHYSICAL EXAMINATION: Her blood pressure is 92/52 with a pulse of 45. This is an elderly female lying in bed in no distress. Respiratory system: Unlabored breathing, clear to auscultation anteriorly. Heart S1, S2. Regular rate and rhythm. Abdominal redness, has slightly decreased. LABS: Hemoglobin is 8.8, white count 15, BUN of 19, creatinine 0.45. DIAGNOSTIC IMPRESSION AND PLAN: In this patient abdominal wall infected hematoma, status post CT-guided drainage. Cultures are pending. Patient is covered with Zosyn. Discharge with pneumonia cultures. Continue supportive care. MMODL / IJN: [id number] / MTDD
[2020-09-03] MEDS: VANCOMYCIN 1,250 MG in SODIUM CHLORIDE 0.9% 250 ML IVPB SCH ×2 (02:48→14:21)
[2020-09-03] MEDS: SODIUM CHLORIDE 0.9% 1,000 ML IV SCH (05:25)
[2020-09-03 06:15] LABS: African American GFR (CKD) >90 (>60 ml/min/1.73 sqM); Anion Gap 6 mmol/L; Blood Urea Nitrogen 11 mg/dL (7-17); Calcium 8.5 mg/dL (8.4-10.2); Carbon Dioxide 25 mmol/L (22-30); Chloride 112 mmol/L (98-107); Glucose 106 mg/dL (74-99); Non-African American GFR(CKD) >90 (>60 ml/min/1.73 sqM); Potassium 3.4 mmol/L (3.5-5.1); Sodium 143 mmol/L (137-145)
[2020-09-03 06:28] LABS: Basophils # (A) 0.1 k/uL (0-0.2); Basophils % (A) 1 %; Eosinophils # (A) 0.3 k/uL (0-0.7); Eosinophils % (A) 3 %; HCT 30.6 % (34.0-46.0); HGB 9.3 gm/dL (11.4-16.0); Hypochromasia Marked; Lymphocytes # (A) 1.8 k/uL (1.0-4.8); Lymphocytes % (A) 18 %; MCH 27.3 pg (25.0-35.0); MCHC 30.4 g/dL (31.0-37.0); MCV 89.8 fL (80.0-100.0); Mean Platelet Volume 6.8; Monocytes # (A) 0.4 k/uL (0-1.0); Monocytes % (A) 4 %; Neutrophils # (A) 7.2 k/uL (1.3-7.7); Neutrophils % (A) 72 %; Platelet Count 373 k/uL (150-450); RBC 3.41 m/uL (3.80-5.40); RDW 13.9 % (11.5-15.5); WBC 9.9 k/uL (3.8-10.6)
[2020-09-03] MEDS: PIPERACILLIN-TAZOBACTAM 3.375 GM in SODIUM CHLORIDE 0.9% 100 ML IVPB SCH (07:54)
[2020-09-03] MEDS ORDERED: POTASSIUM CHLORIDE ER 20 MEQ TAB.ER PO STA ×2 (08:02→08:44)
[2020-09-03] MEDS: PANTOPRAZOLE 40 MG TABLET PO SCH (08:19)
[2020-09-03] MEDS: buPROPion SR 100 MG TABLET.ER PO SCH (08:19)
[2020-09-03] MEDS: SENNOSIDES-DOCUSATE SODIUM 1 EACH TAB PO SCH (08:19)
[2020-09-03] MEDS: GABAPENTIN 300 MG CAP PO SCH (08:19)
[2020-09-03] MEDS: HEPARIN SODIUM,PORCINE/PF 5,000 UNIT/0.5 ML SYRINGE SQ SCH (08:20)
[2020-09-03] MEDS: ACETAMINOPHEN TAB 325 MG TAB PO PRN ×2 (08:23→14:20)
[2020-09-03] MEDS ORDERED: NYSTATIN 100,000 UNIT/GM POWD 15 GM TOPICAL SCH (09:00)
[2020-09-03] MEDS ORDERED: MAGNESIUM SULFATE-D5W PMX 1 GM in DEXTROSE/WATER 1 100ML.BAG IVPB ONE (10:00)
--- NOTE | 2020-09-03 11:42 | P.PN ---
Subjective Progress Note Date: 09/03/20 HISTORY OF PRESENT ILLNESS This is a 65-year-old female patient of Dr. Leyva with past medical history of hypertension, obstructive sleep apnea, neuropathy, recurrent depression. Tera hassan underwent panniculectomy on 07/03/2020 and has noticed increased abdominal distention, redness in her lower abdomen. The past week. She denies having any drainage. She does complain of nausea without vomiting. No fever or chills. She does complain of constipation and decreased appetite. Patient came into [facility] emergency center for evaluation. She was afebrile, heart rate 91, blood pressure 106/75, pulse ox 97%. WBC 21.6, hemoglobin 10.2 and platelet count 410. Electrolytes unremarkable. Creatinine 0.64. Blood sugar 113. Lactic acid 1.1. Liver function tests were normal. Blood sugar 113. Urinalysis cloudy with nitrate positive, leukoesterase moderat e, bacteria many. CAT scan of the abdomen and pelvis with contrast revealed postsurgical changes of abdominoplasty with large air and fluid collection centered in the subcutaneous adipose layer directly overlying the abdominal plasty site measuring up to 12.9 cm x 17.9 x 4.8 with surrounding inflammation cellulitis. Hepatosplenomegaly. Moderate sized hiatal hernia and colonic diverticulosis. Patient was admitted to the pediatric/MedSurg floor and started on IV antibiotics in the form of Zosyn and vancomycin added. Consult in place with infectious disease and interventional radiology for abdominal drainage. 09/02: Patient underwent drainage of seroma yesterday by Dr. Ledezma with removal of 30 cc of cloudy yellow fluid which has been sent for culture. Urine culture is positive for GNB. Blood culture is no growth afer 24 hours. Patient has been afebrile, HR 79, BP 107/66, PO 91-97% on room air. Repeat blood work reveals WBC 15.0, HGB 8.9, PLT 330. Sodium 141, K 3.2, chloride 111, CO2 24, BUN 13 and creatinine 0.45. Blood sugar 108. Patient is continued on Zosyn and vancomycin. Patient states her pain is about the same as yesterday. She is a drain in place. No diarrhea. She does continue to have nausea. Her last bowel movement was 5 days ago. Erythema is improved. Patient will be started on Senokot-S 2 tablets daily. 09/03: Erythema to the abdomen is much improved. There is erythema to the bottom portion and nystatin will also be ordered. IV fluids will be discontinued and saline lock started. Patient is maintained on vancomycin and Zosyn. Urine culture has been finalize with E. coli, pansensitive. Patient had a bowel movement yesterday and constipation resolved. She has been afebrile, heart rate 79, blood pressure 125/79, pulse ox 94% on room air. Leukocytosis has resolved with 9.9, hemoglobin 9.3, platelet count 373. Sodium 143, potassium 3.4, chlori de 112, CO2 25, BUN 11 creatinine 0.5. Blood sugar 106. REVIEW OF SYSTEMS Constitutional: No fever, no chills, no night sweats. No weight change. No weakness, fatigue or lethargy. No daytime sleepiness. EENT: No headache. No blurred vision or double vision, no loss of vision. No loss of Hearing, no ringing in the ears, no dizziness. No nasal drainage or congestion. No epistaxis. No sore throat. Lungs: No shortness of breath, cough, no sputum production. No wheezing. Cardiovascular: No chest pain, no lower extremity edema. No palpitations. No paroxysmal nocturnal dyspnea. No orthopnea. No lightheadedness or dizziness. No syncopal episodes. Abdominal: Reports abdominal pain. Denies nausea, no vomiting. No diarrhea. Reports constipation. No bloody or tarry stools reports loss of appetite. Genitourinary: No dysuria, increased frequency, urgency. No urinary retention. Musculoskeletal: No myalgias. No muscle weakness, no gait dysfunction, no freq uent falls. No back pain. No neck pain. Integumentary: Reports wounds with erythema, no lesions. No rash or pruritus. No unusual bruising. No change in hair or nails. Neurologic: No aphasia. No facial droop. No change in mentation. No head injury. No headache. No paralysis. No paresthesia. Psychiatric: No depression. No anxiety. No mood swings. Endocrine: No abnormal blood sugars. PHYSICAL EXAMINATION Gen: This is a 65-year-old obese female. Patient is resting in bed and appears to be comfortable. HEENT: Head is atraumatic, normocephalic. Pupils equal, round. Sclerae is anicteric. NECK: Supple. No JVD. No lymphadenopathy. No thyromegaly. LUNGS: Clear to auscultation. No wheezes or rhonchi. No intercostal retractions. HEART: Regular rate and rhythm. No murmur. ABDOMEN: Soft. Bowel sounds are present. No masses. Erythema improved. Drain age bag in place with. EXTREMITIES: No pedal edema. No calf tenderness. NEUROLOGICAL: Patient is awake, alert and oriented x3. Cranial nerves 2 through 12 are grossly intact. ASSESSMENT AND PLAN 1. Cellulitis and seroma at surgical site of prior panniculectomy. Status post drainage of seroma, cultures in process, diet advanced by general surgery. Continue antibiotics the form of vancomycin and Zosyn, ID consultation appreciated. 2. Recent panniculectomy on 07/03/2020. 3. Acute E. coli urinary tract infection. Continue Zosyn. 4. Hypertension. Continue lisinopril 10 mg at bedtime 5. Obstructive sleep apnea. 6. Gastroesophageal reflux disease. Continue Protonix. 7. DVT prophylaxis. Heparin subcu. 8. Constipation. Senokot S-2 tablets daily ordered. DISCHARGE PLAN Home. Impression and plan of care have been directed as dictated by the signing physician. Michelle Wick nurse practitioner acting as scribe for signing tera dumont. Objective - Vital Signs Vital signs: Vital Signs Temp 98.3 F 09/03/20 08:11 Pulse 79 09/03/20 08:11 Resp 16 09/03/20 08:11 BP 125/79 09/03/20 08:11 Pulse Ox 94 L 09/03/20 08:11 Intake & Output 09/02/20 09/03/20 09/03/20 18:59 06:59 18:59 Intake Total 1200 Output Total 125 Balance 1200 -125 Intake: Oral 1200 Output: Drainage 125 Lower Medial Abdomen 125 Other: Voiding Method Toilet Toilet # Voids 2 1 1 # Bowel Movements 1 - Labs CBC & Chem 7: 09/03/20 05:27 09/03/20 05:27 Labs: Abnormal Lab Results - Last 24 Hours (Table) 09/02/20 09/03/20 09/03/20 Range/Units 12:16 05:27 05:27 RBC 3.41 L (3.80-5.40) m/uL Hgb 9.3 L (11.4-16.0) gm/dL Hct 30.6 L (34.0-46.0) % MCHC 30.4 L (31.0-37.0) g/dL Potassium 3.4 L 3.4 L (3.5-5.1) mmol/L Chloride 112 H (98-107) mmol/L Creatinine 0.50 L (0.52-1.04) mg/dL Glucose 106 H (74-99) mg/dL Microbiology - Last 24 Hours (Table) 09/01/20 09:25 Gram Stain - Final Abdomen Wound Culture - Final 08/31/20 15:05 Urine Culture - Final Urine,Voided Escherichia coli 08/31/20 15:05 Blood Culture - Preliminary Blood No Growth after 48 hours 08/31/20 15:05 Blood Culture - Preliminary Blood No Growth after 48 hours 09/01/20 16:15 Gram Stain - Preliminary Aspirate Body Fluid Culture - Preliminary
--- NOTE | 2020-09-03 12:50 | P.PN ---
<Enriqueta Curry - Last Filed: 09/03/20 12:48> Subjective Progress Note Date: 09/03/20 CHIEF COMPLAINT: Cellulitis and seroma had prior surgical site HISTORY OF PRESENT ILLNESS: Patient is hospitalized for cellulitis and seroma at surgical site of prior panniculectomy. Panniculectomy had been completed on 07/03/2020. Patient is status post ultrasound-guided drainage of fluid collection. Infectious disease is following. Patient is currently on IV antibiotics. Patient has had decrease in the erythema and swelling at the incision site. There is a purulent drainage from drain. Afebrile. Hemoglobin 9.3. Potassium is 3.4 magnesium 1.7 Her white count has normalized at 9.9. Patient has been up and ambulating. She reports having bowel movements. She states that her nausea has improved. Fluid culture results are negative so far. PHYSICAL EXAM: VITAL SIGNS: Reviewed. GENERAL: Well-developed in no acute distress. HEENT: No sclera icterus. Extraocular movements grossly intact. Moist buccal mucosa. Head is atraumatic, normocephalic. ABDOMEN: Soft. Nondistended. Patient's incision site from her previous panniculectomy with erythema surrounding the incision is decreasing. Patient has a drainage tube in place with purulent drainage. NEUROLOGIC: Alert and oriented. Cranial nerves II through XII grossly intact. ASSESSMENT: 1. Cellulitis and seroma at surgical site of prior panniculectomy status will ultrasound guided drainage 2. Status post panniculectomy on 07/03/2020 3. UTI 4. Hypokalemia and hypomagnesemia PLAN: -Awaiting discharge antibiotic recommendations per ID -Continue Glucerna shakes -Replace potassium and magnesium -Continue regular diet -Follow up on fluid culture results -Encouraged patient to increase activity -GI prophylaxis Protonix and DVT prophylaxis subcu heparin Physician Morning Show Newscast Producer note has been reviewed by physician. Signing provider agrees with the documented findings, assessment, and plan of care. Objective - Vital Signs Vital signs: Vital Signs Temp 98.3 F 09/03/20 08:11 Pulse 79 09/03/20 08:11 Resp 16 09/03/20 08:11 BP 125/79 09/03/20 08:11 Pulse Ox 94 L 09/03/20 08:11 Intake & Output 09/02/20 09/03/20 09/03/20 18:59 06:59 18:59 Intake Total 1200 Output Total 125 Balance 1200 -125 Intake: Oral 1200 Output: Drainage 125 Lower Medial Abdomen 125 Other: Voiding Method Toilet Toilet # Voids 2 1 1 # Bowel Movements 1 1 - Labs CBC & Chem 7: 09/03/20 05:27 09/03/20 05:27 Labs: Abnormal Lab Results - Last 24 Hours (Table) 09/02/20 09/03/20 09/03/20 Range/Units 12:16 05:27 05:27 RBC 3.41 L (3.80-5.40) m/uL Hgb 9.3 L (11.4-16.0) gm/dL Hct 30.6 L (34.0-46.0) % MCHC 30.4 L (31.0-37.0) g/dL Potassium 3.4 L 3.4 L (3.5-5.1) mmol/L Chloride 112 H (98-107) mmol/L Creatinine 0.50 L (0.52-1.04) mg/dL Glucose 106 H (74-99) mg/dL Microbiology - Last 24 Hours (Table) 09/01/20 09:25 Gram Stain - Final Abdomen Wound Culture - Final 08/31/20 15:05 Urine Culture - Final Urine,Voided Escherichia coli 08/31/20 15:05 Blood Culture - Preliminary Blood No Growth after 48 hours 08/31/20 15:05 Blood Culture - Preliminary Blood No Growth after 48 hours 09/01/20 16:15 Gram Stain - Preliminary Aspirate Body Fluid Culture - Preliminary <Frieda Holliday N - Last Filed: 09/05/20 18:29> Subjective CHIEF COMPLAINT: Panniculitis with infection HISTORY OF PRESENT ILLNESS: The patient is a 65-year-old female status post panniculectomy over 1-2 months ago. She denies any active abdominal pain. ROS: No reports of nausea and vomiting. No fevers or chills. No new chest pain. No productive sputum PHYSICAL EXAM: VITAL SIGNS: Reviewed CONSTITUTIONAL: Well developed and in no acute distress. EYES: Conjuctivae without sclera icterus. Extraocular movements grossly intact. HEAD, EARS, NOSE, THROAT: Moist buccal mucosa. Head is atraumatic, normocephalic. Hears conversational speech. No nasal drainage. RESPIRATORY: Non-labored respirations and equal bilateral excursions. CARDIOVASCULAR: Palpable 2+ radial pulses. ABDOMEN: No peritonitis. Cellulitis along abdomen MUSCULOSKELETAL: No gross deformity of the lower extremities noted. No clubbing. No cyanosis. SKIN: Good skin turgor. Well perfused. NEUROLOGIC: Cranial nerves II through XII grossly intact. No focal or lateralizing signs. PSYCH: Appropriate affect. Alert and oriented to person, place and time. CLINICAL LABS: White blood cell count elevated 21.6 on admission now down to 15.6 ASSESSMENT: 1. Cellulitis status post panniculectomy PLAN: 1. Awaiting cultures 2. Will need home health care. Objective - Vital Signs Vital signs: Vital Signs Temp 97.5 F L 09/03/20 14:01 Pulse 83 09/03/20 14:01 Resp 18 09/03/20 14:01 BP 104/56 09/03/20 14:01 Pulse Ox 96 09/03/20 14:01 - Labs CBC & Chem 7: 09/03/20 05:27 09/03/20 05:27 Labs: Microbiology - Last 24 Hours (Table) 08/31/20 15:05 Blood Culture - Preliminary Blood No Growth after 120 hours 08/31/20 15:05 Blood Culture - Preliminary Blood No Growth after 120 hours 09/01/20 16:15 Gram Stain - Preliminary Aspirate Body Fluid Culture - Preliminary Assessment and Plan (1) Panniculitis Status: Acute Code(s): M79.3 - PANNICULITIS, UNSPECIFIED SNOMED Code(s): 80425858 (2) Cellulitis Status: Acute Code(s): L03.90 - CELLULITIS, UNSPECIFIED SNOMED Code(s): 890658129 (3) Seroma Status: Acute Code(s): HQN3154 - SNOMED Code(s): 218334672
[2020-09-03] MEDS ORDERED: VANCOMYCIN TROUGH DUE 1 EACH MISC MISCELLANE ONE (14:00)
[2020-09-03 14:09] VITALS: BP 104/56; PULSE 83; RESP 18; TEMP 97.5
--- NOTE | 2020-09-03 17:01 | P.DS ---
<Enriqueta Curry - Last Filed: 09/03/20 16:59> Providers Expected date of discharge: 09/03/20 Hospital Course: Discharge diagnosis 1. Cellulitis and seroma at surgical site of prior panniculectomy status will ultrasound guided drainage 2. Status post panniculectomy on 07/03/2020 3. UTI 4. Hypokalemia and hypomagnesemia Hospital course This is a 65-year-old female who had a panniculectomy on 07/03/2020. Patient reports over the last 2 weeks she's noticed increased swelling redness and warmth at the incision site. She denies any drainage. She started to have increasing pain and distention in the area. She also was very nauseated. She came into the ER for further evaluation and treatment. She also reports decrease in appetite and decrease in her bowel movements. She had a computed tomography scan of the abdomen and pelvis that shows postsurgical changes of the abdominoplasty with large air and fluid collection centered in the subcutaneous adipose layer directly overlying the abdominoplasty site measuring up to 12.9 cm x 17.9 cm wide by 4.8 cm AP. Surrounding inflammation/cellulitis. Hepatosplenomegaly. Moderate size hiatal hernia and colonic diverticulosis. Patient admitted to hospital for incisional cellulitis and seroma. She has been started on IV antibiotics. Patient underwent ultrasound-guided drainage by interventional radiology of the seroma. She is having purulent yellowish drainage from the drain. She is remained afebrile. Her white count has n ormalized. Cultures are negative so far. Her urine culture did grow E. coli. Patient will be discharged home on Augmentin for 10 days. Patient is tolerating diet. She is having bowel movements. She is ambulating. She is stable for discharge. Please refer to chart for further details. Physician Rn Delivery note has been reviewed by physician. Signing provider agrees with the documented findings, assessment, and plan of care. Patient Condition at Discharge: Stable Plan - Discharge Summary Discharge Rx Participant: Yes New Discharge Prescriptions: New Amoxic-Pot Clav 875-125Mg [Augmentin 875-125] 1 tab PO Q12HR 10 Days #20 tab No Action Gabapentin [Neurontin] 300 mg PO BID Acetaminophen [Tylenol] 1,500 mg PO ONETIME PRN PRN Reason: Pain Lisinopril [Zestril] 10 mg PO HS #0 Ibuprofen [Motrin Ib] 800 mg PO ONETIME PRN PRN Reason: Pain buPROPion HCL [Wellbutrin SR] 200 mg PO BID Multivitamins, Thera [Multivitamin (formulary)] 1 tab PO DAILY Discharge Medication List Acetaminophen [Tylenol] 1,500 mg PO ONETIME PRN 01/10/20 [History] Gabapentin [Neurontin] 300 mg PO BID 01/10/20 [History] Lisinopril [Zestril] 10 mg PO HS #0 01/15/20 [Rx] Ibuprofen [Motrin Ib] 800 mg PO ONETIME PRN 08/31/20 [History] Multivitamins, Thera [Multivitamin (formulary)] 1 tab PO DAILY 08/31/20 [History] buPROPion HCL [Wellbutrin SR] 200 mg PO BID 08/31/20 [History] Amoxic-Pot Clav 875-125Mg [Augmentin 875-125] 1 tab PO Q12HR 10 Days #20 tab 09/03/20 [Rx] Follow up Appointment(s)/Referral(s): Deanna Leyva MD [Primary Care Provider] - 1 Week [facility], [NON-STAFF] - 1-2 Days Kanwal Rusos MD [STAFF PHYSICIAN] - 1 Week Joel Wilson MD [STAFF PHYSICIAN] - 09/08/20 Patient Instructions/Handouts: Cellulitis (DC) Activity/Diet/Wound Care/Special Instructions: Medicine to complete discharge med - Per Dr Posada pt is not to take her lisinopril until seen in the office in 1 week. No lifting over 10 pounds You may shower. No soaking or tub baths ( leave dressing in place over the drain site) Very light activity until you are reevaluated at your follow up appointment with your surgeon (Nothing strenuous) Patient continue with Tylenol OTC every 4-6 hours as needed for pain Call your DR or return to ER with any fever, chills , increased redness or concerning drainage from your drain site, increased pain not controlled with Tylenol or any concerns. regular diet. good hand washing before and after drain care. Case Management should contact you tomorrow regarding plan for home care. Drain dressing needs to be changed on Monday.09/08/20. If no plan for home care to see you ask at your appointment with Dr Wilson regarding dressing change. Discharge Disposition: HOME WITH HOME HEALTH SERVICES <Frieda Holliday N - Last Filed: 09/05/20 18:33> Providers Date of admission: 08/31/20 17:15 Attending physician: Joel Wilson Consults: 08/31/20 17:18 Consult Physician Routine Consulting Provider: Deanna Leyva Consult Reason/Comments: Surgical site cellulitis, urinary tract infection Do you want consulting provider notified?: Yes 09/01/20 12:35 Consult Physician Routine Consulting Provider: Kanwal Russo Consult Reason/Comments: antibiotic management Do you want consulting provider notified?: Already Contacted Primary care physician: Deanna Leyva - Discharge Diagnosis(es) (1) Panniculitis Status: Acute (2) Cellulitis Status: Acute (3) Seroma Status: Acute Hospital Course: CHIEF COMPLAINT: Panniculitis with infection HISTORY OF PRESENT ILLNESS: The patient is a 65-year-old female status post panniculectomy over 1-2 months ago presented with seroma and infection and cellulitis. She reports feeling well. She has home healthcare. She is looking to be discharged. Her pain is well controlled. ROS: No reports of nausea and vomiting. No fevers or chills. PHYSICAL EXAM: VITAL SIGNS: Reviewed CONSTITUTIONAL: Well developed and in no acute distress. EYES: Conjuctivae without sclera icterus. Extraocular movements grossly intact. HEAD, EARS, NOSE, THROAT: Moist buccal mucosa. Head is atraumatic, normocephalic. Hears conversational speech. No nasal drainage. RESPIRATORY: Non-labored respirations and equal bilateral excursions. CARDIOVASCULAR: Palpable 2+ radial pulses. ABDOMEN: No peritonitis. Cellulitis along abdomen improved. MUSCULOSKELETAL: No gross deformity of the lower extremities noted. No clubbing. No cyanosis. SKIN: Good skin turgor. Well perfused. NEUROLOGIC: Cranial nerves II through XII grossly intact. No focal or lateralizing signs. PSYCH: Appropriate affect. Alert and oriented to person, place and time. MICROBIOLOGY: E.coli present and sensitive to all. CLINICAL LABS: White blood cell count elevated 21.6 on admission now normal ASSESSMENT: 1. Cellulitis status post panniculectomy 2. E. coli UTI PLAN: 1. Discharge home with antibiotics.
--- NOTE | 2020-09-03 21:53 | P.PN ---
Progress Note - Text Progress Note Date: 09/03/20 REASON FOR FOLLOWUP: Infected abdominal seroma. INTERVAL HISTORY: Patient remains to be afebrile. The patient has abdominal discomfort, slightly decreased. Denies having any chest pain. No shortness of breath or cough. No nausea, vomiting or diarrhea. PHYSICAL EXAMINATION: Her blood pressure is 102/50 with a pulse of 45. This is an elderly female lying in bed in no distress. Respiratory system: Unlabored breathing, clear to auscultation anteriorly. Heart S1, S2. Regular rate and rhythm. Abdominal redness, has slightly decreased. LABS: Hemoglobin is 8.8, white count 9, cultures pending DIAGNOSTIC IMPRESSION AND PLAN: patient with abdominal wall infected hematoma, status post CT-guided drainage. Cultures are pending , white count normalized with Zosyn to continue. Discharge antibiotics on basis of cultures. Continue supportive care.
== END 2020-09-03 18:03 | disposition home health service (06) | DRG 920 ==
LOC: EC 12:52 → 6PED 17:15
PROVIDERS: ADMIT Surgery; ATTEND Surgery
PROC: 0J983ZZ Drainage of Abdomen Subcutaneous Tissue and Fascia, Percutaneous Approach (ICD-10-PCS; principal; 2020-09-01)
DX: L76.34 Postprocedural seroma of skin and subcutaneous tissue following other procedure (principal); T81.41XA Infection following a procedure, superficial incisional surgical site, initial encounter; F33.9 Major depressive disorder, recurrent, unspecified; L03.311 Cellulitis of abdominal wall; N39.0 Urinary tract infection, site not specified; E66.9 Obesity, unspecified; G62.9 Polyneuropathy, unspecified; B96.20 Unspecified Escherichia coli [E. coli] as the cause of diseases classified elsewhere; E83.42 Hypomagnesemia; Z20.822 Contact with and (suspected) exposure to COVID-19; Z68.28 Body mass index [BMI] 28.0-28.9, adult; E87.6 Hypokalemia; G47.33 Obstructive sleep apnea (adult) (pediatric); I10 Essential (primary) hypertension; K44.9 Diaphragmatic hernia without obstruction or gangrene; K21.9 Gastro-esophageal reflux disease without esophagitis; K57.30 Diverticulosis of large intestine without perforation or abscess without bleeding; K59.00 Constipation, unspecified; Z79.899 Other long term (current) drug therapy; Z90.710 Acquired absence of both cervix and uterus; Z96.653 Presence of artificial knee joint, bilateral; Z98.42 Cataract extraction status, left eye; Z98.41 Cataract extraction status, right eye; Z90.49 Acquired absence of other specified parts of digestive tract; Y83.8 Other surgical procedures as the cause of abnormal reaction of the patient, or of later complication, without mention of misadventure at the time of the procedure
CPT/HCPCS: 10030; 36415; 74177; 76942; 80048; 80053; 80202; 81001; 82150; 83605; 83690; 83735; 84132; 85025; 87040; 87070; 87075; 87077; 87086; 87186; 87205; 96361; 96374; 96375; 99285

== ENCOUNTER 2020-10-19 07:55 | Day surgery (SDC) | payer MEDICARE ==
[2020-10-15 11:32] VITALS: BMI 27.3
[~2020-10-19 07:55] MED LIST changes: +DEXAMETHASONE SOD PHOSPHATE 4 MG/ML 1 ML VIAL IV ONE; +HEPARIN SODIUM,PORCINE/PF 5,000 UNIT/0.5 ML SYRINGE SQ PRN; +HYDROmorphone 0.5 MG/0.5 ML SYRINGE IVP PRN; +LIDOCAINE 1% (10MG/ML) FOR IV START INTRADERMA PRN; +MIDAZOLAM 2 MG/2 ML VIAL IV PRN; +ONDANSETRON 4 MG/2 ML VIAL IVP ONE; +Pre Op ABX Message 1 EACH MISC MISCELLANE ONE
[2020-10-19 08:30] VITALS: RESP 16
[2020-10-19] MEDS: LACTATED RINGERS 1,000 ML IV SCH (08:32)
[2020-10-19] MEDS ORDERED: LIDOCAINE 1% INJ 10MG/ML (20 ML MDV) ONE (10:38)
[2020-10-19] MEDS ORDERED: PROPOFOL 10 MG/ML 20 ML VIAL IV ONE (10:38)
[2020-10-19] MEDS ORDERED: MIDAZOLAM 2 MG/2 ML VIAL ONE (10:38)
[2020-10-19] MEDS ORDERED: fentaNYL (PF) 50 MCG/ML 2 ML AMP ONE (10:38)
--- NOTE | 2020-10-19 10:40 | P.GSHP ---
History of Present Illness H&P Date: 10/19/20 Chief Complaint: Infected seroma This is a 65-year-old female who underwent previous panniculectomy. Patient has developed an infected swollen. She presents today for wound VAC placement Past Medical History Past Medical History: Hypertension, Sleep Apnea/CPAP/BIPAP Additional Past Medical History / Comment(s): has wound & drain to lower abdomen-panniculectomy incional site,NEUROPATHY, DEPRESSION, ARTHRITIS, CPAP use. History of Any Multi-Drug Resistant Organisms: None Reported Past Surgical History: Appendectomy, Hysterectomy Additional Past Surgical History / Comment(s): LEFT TOTAL KNEE REPLACEMENT, BILATERAL CATARACTS, Pain Clinic Procedures., panniculetomy Past Anesthesia/Blood Transfusion Reactions: No Reported Reaction, Motion Sickness Smoking Status: Never smoker - Past Family History Mother Family Medical History: No Reported History Sister(s) Family Medical History: Cancer Additional Family Medical History / Comment(s): Uterine cancer. Medications and Allergies Home Medications Medication Instructions Recorded Confirmed Type Acetaminophen [Tylenol] 1,500 mg PO BID PRN 01/10/20 10/19/20 History Gabapentin [Neurontin] 300 mg PO BID 01/10/20 10/19/20 History Lisinopril [Zestril] 10 mg PO HS #0 01/15/20 10/19/20 Rx Ibuprofen [Motrin Ib] 800 mg PO Q8H PRN 08/31/20 10/15/20 History Multivitamins, Thera [Multivitamin 1 tab PO DAILY 08/31/20 10/15/20 History (formulary)] buPROPion HCL [Wellbutrin SR] 200 mg PO BID 08/31/20 10/19/20 History Allergies Allergy/AdvReac Type Severity Reaction Status Date / Time No Known Allergies Allergy Verified 10/15/20 11:25 Surgical - Exam Vital Signs Temp Pulse Resp BP Pulse Ox 97.6 F 69 16 152/89 95 10/19/20 08:28 10/19/20 08:28 10/19/20 08:28 10/19/20 08:28 10/19/20 08:28 - General well developed, well nourished, no distress - Eyes PERRL - ENT normal pinna - Neck no masses - Respiratory normal expansion - Cardiovascular Rhythm: regular - Abdomen Abdomen: soft, non tender Assessment and Plan Assessment: Infected thrown. We'll perform wound VAC placement.
[2020-10-19] MEDS ORDERED: SODIUM CHLORIDE 0.9% 100 ML with ceFAZolin 2,000 MG IV ONE ×2 (10:50)
--- NOTE | 2020-10-19 11:18 | P.OP ---
Date of Procedure: 10/19/20 Preoperative Diagnosis: Infected seroma Postoperative Diagnosis: Infected abdominal wall seroma Procedure(s) Performed: I&D of infected abdominal wall seroma and placement of wound VAC Anesthesia: ANYA Surgeon: Joel Wilson Estimated Blood Loss (ml): 5 Pathology: other (Wound culture) Condition: stable Disposition: PACU Description of Procedure: The patient's placed on the operative table in supine position. Her radiologic drain was removed. A skin incision was made at the previous incision site. The residual cautery some taste divided. A small seroma cavity was entered. The seroma cavity measured approximately 3 x 5 x 2 cm. The wound was cultured. The wound was irrigated. Next the wound VAC black foam was placed in the wound. Was cut to appropriate size. The wound VAC was then assembled and connected to suction. Patient top she will was sent to recovery room stable condition.
[2020-10-19] MEDS: GABAPENTIN 300 MG CAP PO SCH (20:42)
[2020-10-19] MEDS: buPROPion SR 100 MG TABLET.ER PO SCH (20:42)
[2020-10-19] MEDS ORDERED: ACETAMINOPHEN TAB 500 MG TAB PO PRN (20:43)
[2020-10-19] MEDS ORDERED: lisinopriL 10 MG TAB PO SCH (21:00)
[2020-10-20] MEDS: buPROPion SR 100 MG TABLET.ER PO SCH (08:22)
[2020-10-20] MEDS: GABAPENTIN 300 MG CAP PO SCH (08:22)
[2020-10-20] MEDS: LACTATED RINGERS 1,000 ML IV SCH (10:50)
[2020-10-20 12:10] VITALS: BP 117/69; PULSE 62; TEMP 98.3
--- NOTE | 2020-10-20 13:26 | P.DS ---
Providers Expected date of discharge: 10/20/20 Attending physician: Joel Wilson Primary care physician: Deanna Leyva Hospital Course: Discharge diagnosis 1. Infected abdominal wall seroma status post I&D of infected abdominal wall seroma and placement of wound VAC Hospital course This is a 65-year-old female who underwent a previous panniculectomy. She developed an infected seroma. She is status post I&D of infected abdominal wall seroma and placement of wound VAC. Patient tolerated surgery well. Her pain is controlled. She is tolerating diet. She is up and ambulate in. She's afebrile. She is stable for discharge. Please refer to chart for any further details. Physician Tire Adjuster note has been reviewed by physician. Signing provider agrees with the documented findings, assessment, and plan of care. Patient Condition at Discharge: Stable Plan - Discharge Summary Discharge Rx Participant: No New Discharge Prescriptions: New Acetaminophen Tab [Tylenol] 1,000 mg PO Q6HR PRN #30 tablet PRN Reason: Pain Continue Gabapentin [Neurontin] 300 mg PO BID Lisinopril [Zestril] 10 mg PO HS #0 Ibuprofen [Motrin Ib] 800 mg PO Q8H PRN PRN Reason: Pain buPROPion HCL [Wellbutrin SR] 200 mg PO BID Multivitamins, Thera [Multivitamin (formulary)] 1 tab PO DAILY Discontinued Acetaminophen [Tylenol] 1,500 mg PO BID PRN PRN Reason: Pain Discharge Medication List Gabapentin [Neurontin] 300 mg PO BID 01/10/20 [History] Lisinopril [Zestril] 10 mg PO HS #0 01/15/20 [Rx] Ibuprofen [Motrin Ib] 800 mg PO Q8H PRN 08/31/20 [History] Multivitamins, Thera [Multivitamin (formulary)] 1 tab PO DAILY 08/31/20 [History] buPROPion HCL [Wellbutrin SR] 200 mg PO BID 08/31/20 [History] Acetaminophen Tab [Tylenol] 1,000 mg PO Q6HR PRN #30 tablet 10/20/20 [Rx] Follow up Appointment(s)/Referral(s): [facility], [NON-STAFF] - ([facility] will call you to set up a visit for 10/21/20 to apply the wound vac. ) Joel Wilson MD [STAFF PHYSICIAN] - 10/29/20 2:40 pm Patient Instructions/Handouts: *Surgery [facility] - (Anesthesia) Discharge Instructions Outpatient Surgery, Negative Pressure Wound Therapy (DC) Activity/Diet/Wound Care/Special Instructions: *[facility] is the wound vac provider- [phone]. Please contact them if you have questions or issues with the wound vac. No lifting over 10 pounds You may shower. No soaking or tub baths for 2 weeks Very light activity until you are reevaluated at your follow up appointment with your surgeon Discharge Disposition: HOME WITH HOME HEALTH SERVICES
== END 2020-10-20 15:17 | disposition home health service (06) ==
LOC: OR 07:55 → 5NMEDONC 11:11 → OR 10-20 15:17
PROVIDERS: ATTEND Surgery
DX: L76.34 Postprocedural seroma of skin and subcutaneous tissue following other procedure (principal); I10 Essential (primary) hypertension; G47.30 Sleep apnea, unspecified; G62.9 Polyneuropathy, unspecified; F32.9 Major depressive disorder, single episode, unspecified; M19.90 Unspecified osteoarthritis, unspecified site; Z90.89 Acquired absence of other organs; Z90.710 Acquired absence of both cervix and uterus; Z96.652 Presence of left artificial knee joint; Z98.42 Cataract extraction status, left eye; Z98.41 Cataract extraction status, right eye; Z98.890 Other specified postprocedural states; Z80.49 Family history of malignant neoplasm of other genital organs; Z79.899 Other long term (current) drug therapy
CPT/HCPCS: 87070; 87205; 10060; 97605; J1100; S0106 ×2; J2405; J0690; J1644

== ENCOUNTER → 2021-06-01 | Outpatient (CLI) | payer MEDICARE ==
[2021-06-01 12:31] LABS: African American GFR (CKD) >90 (>60 ml/min/1.73 sqM); Blood Urea Nitrogen 17 mg/dL (7-17); Non-African American GFR(CKD) 80 (>60 ml/min/1.73 sqM)
--- NOTE | 2021-06-01 15:10 | CT ---
EXAMINATION TYPE: CT abdomen pelvis w con DATE OF EXAM: 06/01/2021 COMPARISON: CT dated 08/31/2020 HISTORY: Intraabdominal and pelvic swelling CT DLP: 1531.3 mGycm Automated exposure control for dose reduction was used. TECHNIQUE: Helical acquisition of images was performed from the lung bases through the pelvis. CONTRAST: Performed with Oral Contrast and with IV Contrast, patient injected with 100 mL of Isovue 300. FINDINGS: LUNG BASES: Minimal basal pulmonary atelectasis. LIVER/GB: Suspected hepatic steatosis. No definite hepatic focal lesion. No radiodense gallbladder ca lculi. PANCREAS: Slightly atrophic with scattered tiny calcifications. SPLEEN: No significant abnormality is seen. ADRENALS: No significant abnormality is seen. KIDNEYS: Few nonobstructing calculi are seen within the right kidney measuring up to 4 mm. Scattered bilateral renal hypodensities, likely representing renal cysts. Irregular outline of the kidneys: The left side. FREE AIR: No free air is visualized. RETROPERITONEAL ADENOPATHY: None visualized REPRODUCTIVE ORGANS: Previous hysterectomy. No gross adnexal mass. URINARY BLADDER: Suspected perineal prolapse with a bladder neck distended. PELVIC ADENOPATHY: None visualized. OSSEOUS STRUCTURES: Severe degenerative changes of the lumbar spine. BOWEL: Hiatal hernia containing the gastric fundus. Unremarkable remainder of the stomach, duodenum and small bowel. Scattered uncomplicated colonic diverticulosis. Mild nonspecific wall thickening of the right hemicolon. OTHER: Arterial atherosclerotic calcifications. No sizable ascites. Marked soft tissue thickening tommie ng the midline of the anterior abdominal wall likely related to sequela of previous surgery/intervent ion. Umbilical hernia containing fat passing through the soft tissue thickening. IMPRESSION: No definite acute abnormality or suspicious lesion seen in the abdomen or the pelvis. Marked soft tis dick thickening along the anterior abdominal wall likely related to sequela of previous surgery/interv ention. Other incidental findings as detailed above.
== END | disposition home or self-care (01) ==
LOC: RADCTMAIN 11:44
PROVIDERS: ATTEND Family Medicine
DX: R19.09 Other intra-abdominal and pelvic swelling, mass and lump (principal)
CPT/HCPCS: 82565; 84520; 74177; 36415; Q9967 ×2

== ENCOUNTER → 2021-07-01 | Outpatient (CLI) | payer MEDICARE ==
--- NOTE | 2021-07-01 12:03 | BD ---
EXAMINATION TYPE: Axial Bone Density DATE OF EXAM: 07/01/2021 COMPARISON: NONE CLINICAL HISTORY: 66 years year old Female. ICD-10 CODE: Z78.0 POST MENOPAUSAL, M89.9 DISORDER OF B ONE Height: 58.5 Weight: 169 FRAX RISK QUESTIONS: Alcohol (3 or more units per day): no Family History (Parent hip fracture): no Glucocorticoids (More than 3mos): no (Ex: prednisone, prednisolone, methylprednisolone, dexamethasone, and hydrocortisone). History of Fracture in Adulthood: no Secondary Osteoporosis: 1. Type 1 Diabetes: no 2. Hyperthyroidism: no 3. Menopause before 45: no 4. Malnutrition: no 5. Chronic liver disease: no Rheumatoid Arthritis: no Current Tobacco Use: no RISK FACTORS HISTORY OF: Active: yes Diet low in dairy products/other sources of calcium: yes Postmenopausal woman: yes Lost more than 2 inches in height since high school: yes MEDICATIONS: Additional Medications: Vit D, BP Meds, Additional History: Diabetic, Arthritis EXAM MEASUREMENTS: Bone mineral densitometry was performed using the [employer] System. Bone mineral density as measured about the Lumbar spine is: ----- L1-L4(G/cm2): 1.404 T Score Values are as follows: ----- L1: 3.9 ----- L2: 2.1 ----- L3: -0.5 ----- L4: 0.8 ----- L1-L4: 1.9 Bone mineral density is Baseline at [facility] Bone mineral density about the R hip (g/cm2): 1.007 Bone mineral density about the L hip (g/cm2): .988 T Score values are as follows: -----R Neck: 0.1 -----L Neck: 0.3 -----R Total: 0.0 -----L Total: -0.2 Bone mineral density is Baseline at [facility] FRAX%s: The graph provided illustrates a 6.5% chance for a major osteoporotic fx and a 0.3% chance fo r the hips probability for fx in 10 years time. IMPRESSION: Normal (Values between +1 and -1 indicate normal bone mass). Consider repeating this study in 5 year s or sooner if there is some new clinical indication. NOTE: T-SCORE=SD OF THE YOUNG ADULT MEAN.
--- NOTE | 2021-07-02 13:35 | MM ---
Reason for exam: screening (asymptomatic). Last mammogram was performed 2 years and 3 months ago. History: Patient is postmenopausal and history of other cancer. Family history of breast cancer in maternal grandmother. Physical Findings: A clinical breast exam by your physician is recommended on an annual basis and results should be correlated with mammographic findings. MG 3D Screening Mammo W/Cad Bilateral CC and MLO view(s) were taken. Prior study comparison: March 19, 2019, bilateral MG 3d screening mammo w/cad. July 11, 2017, bilateral MG screening mammo w CAD. There are scattered fibroglandular densities. No significant changes when compared with prior studies. ASSESSMENT: Benign, BI-RAD 2 RECOMMENDATION: Routine screening mammogram of both breasts in 1 year.
== END | disposition home or self-care (01) ==
LOC: RADMAMWWP 08:57
PROVIDERS: ATTEND Family Medicine
DX: Z12.31 Encounter for screening mammogram for malignant neoplasm of breast (principal); Z78.0 Asymptomatic menopausal state; M89.9 Disorder of bone, unspecified; Z80.3 Family history of malignant neoplasm of breast
CPT/HCPCS: 77063; 77067; 77080

== ENCOUNTER 2021-08-25 09:16 | Day surgery (SDC) | payer MEDICARE ==
[2021-08-24 12:56] VITALS: BMI 27.4
[2021-08-25] MEDS ORDERED: LACTATED RINGERS 1,000 ML IV SCH (09:23)
[2021-08-25] MEDS ORDERED: LIDOCAINE 1% (10MG/ML) FOR IV START INTRADERMA PRN (09:23)
[2021-08-25 10:23] VITALS: TEMP 97.6
[2021-08-25 10:36] LABS: Glucose,Whole Blood 96 mg/dL (75-99)
[2021-08-25] MEDS ORDERED: PROPOFOL 10 MG/ML 20 ML VIAL IV ONE (10:52)
[2021-08-25] MEDS ORDERED: LIDOCAINE 2% INJ 20 MG/ML (2 ML VIAL) ONE (10:52)
--- NOTE | 2021-08-25 11:09 | P.PCN ---
Date of Procedure: 08/25/21 Procedure(s) Performed: BRIEF HISTORY: Patient is a 66-year-old pleasant white female scheduled for an elective colonoscopy as a part of evaluation of change in bowel habits for the last several months duration. She denies any rectal bleeding. PROCEDURE PERFORMED: Colonoscopy. PREOPERATIVE DIAGNOSIS: Change in bowel habits IV sedation per Anesthesia. PROCEDURE: After informed consent was obtained, the patient, was brought into the endoscopy unit. IV sedation was administered by Anesthesia under continuous monitoring. Digital rectal examination was normal. Initially the Olympus CF-160 flexible video colonoscope was then inserted in the rectum, gradually advanced into the cecum without any difficulty. Careful examination was performed as the scope was gradually being withdrawn. Ileocecal valve and the appendiceal orifice were visualized and appeared normal. Prep was excellent. Mucosa of the cecum, ascending colon, transverse colon, descending colon, sigmoid colon, and rectum appeared normal. Scattered diverticulosis. Retroflexion was performed in the rectum and no lesions were seen. The patient tolerated the procedure well. IMPRESSION: Normal-appearing colon from rectum to cecum no evidence of colorectal neoplasia . Scattered diverticulosis RECOMMENDATIONS: Findings of this examination were discussed with the patient as her family. She was advised to have a repeat screening colonoscopy in 10 years. In the meantime I suggested that she use [id number] osmotic laxa tives and fiber supplements as needed..
[2021-08-25 11:15] VITALS: RESP 16
[2021-08-25 11:35] VITALS: BP 104/59; PULSE 59
== END 2021-08-25 12:05 | disposition home or self-care (01) ==
LOC: ORWHC2ENDO 09:16
PROVIDERS: ATTEND Internal Medicine Gastroenterology
DX: K57.90 Diverticulosis of intestine, part unspecified, without perforation or abscess without bleeding (principal); Z79.899 Other long term (current) drug therapy; E11.42 Type 2 diabetes mellitus with diabetic polyneuropathy; Z90.49 Acquired absence of other specified parts of digestive tract; Z90.710 Acquired absence of both cervix and uterus; Z98.42 Cataract extraction status, left eye; Z98.41 Cataract extraction status, right eye
CPT/HCPCS: 45378; J2704; J2001

== ENCOUNTER → 2022-08-19 | Outpatient (CLI) | payer MEDICARE ==
--- NOTE | 2022-08-22 08:38 | MM ---
Reason for Exam: Screening (asymptomatic). Last mammogram was performed 1 year(s) and 2 month(s) ago. Patient History: Menarche at age 10. First Full-Term at age 27. Hysterectomy at age 38. Postmenopausal. Patient has history of breast feeding. Other cancer. Maternal grandmother had breast cancer. Sister had ovarian cancer under age 50. Risk Values: Adrienne 5 year model risk: 1.9%. NCI Lifetime model risk: 5.9%. Prior Study Comparison: 05/17/2016 Bilateral Screening Mammogram, [facility]. 07/11/2017 Bilateral Screening Mammogram, [facility]. 03/19/2019 Bilateral Screening Mammogram, [facility]. 07/01/2021 Bilateral Screening Mammogram, [facility]. Tissue Density: There are scattered fibroglandular densities. Findings: Analyzed By CAD. There is no suspicious group of microcalcifications or new suspicious mass in either breast. Overall Assessment: Benign, BI-RAD 2 Management: Screening Mammogram of both breasts in 1 year. . Patient should continue monthly self-breast exams. A clinical breast exam by your physician is recommended on an annual basis. This exam should not preclude additional follow-up of suspicious palpable abnormalities. Note on Adrienne scores and lifetime risk: 1. A Adrienne score greater than 3% is considered moderate risk. If this is the case, consider specialist referral to assess eligibility for a risk reducing agent. 2. If overall lifetime risk for the development of breast cancer is 20% or higher, the patient may qualify for future screening with alternating mammogram and breast MRI. Electronically signed and approved by: Oral Garnica M.D. Radiologis
== END | disposition home or self-care (01) ==
LOC: RADMAMWWP 09:44
PROVIDERS: ATTEND Family Medicine
DX: Z12.31 Encounter for screening mammogram for malignant neoplasm of breast (principal); Z78.0 Asymptomatic menopausal state; Z80.3 Family history of malignant neoplasm of breast; Z80.41 Family history of malignant neoplasm of ovary
CPT/HCPCS: 77063; 77067

== ENCOUNTER → 2023-09-01 | Outpatient (CLI) | payer MEDICARE ==
--- NOTE | 2023-09-01 12:52 | FL ---
Exam Date: 09/01/2023 11:17 AM. Modified barium swallow for dysphagia. Consistencies administered: Various consistency of barium. Fluoro time: 59 seconds No images were sent to PACS. Please see speech pathology report. DAP: Not reported mGym2 Gycm2
== END ==
LOC: RADFLMAIN 10:24
PROVIDERS: ATTEND Internal Medicine Geriatric Medicine
DX: R13.10 Dysphagia, unspecified (principal)
CPT/HCPCS: 74230

== ENCOUNTER → 2023-11-09 | Outpatient (CLI) | payer MEDICARE ==
--- NOTE | 2023-11-09 14:12 | US ---
EXAMINATION TYPE: US arterial LE single level DATE OF EXAM: 11/09/2023 1:58 PM CLINICAL INDICATION: Female, 68 years old with history of I73.9 spasm of artery, R19.03 RLQ abdom swe lling/m; History of: Smoker: No Hypertension: Yes Diabetic: Yes Hyperlipidemia: Yes TIA/CVA: No Previous Vascular Surgery: No CAD: No ID: No Vascular Ulcers: No Claudication: No Gangrene: No Doppler Waveforms: Right: Biphasic Left: Biphasic Right Brachial Pressure: 125 Left Brachial Pressure: 120 Ankle-Brachial Indices: Right: 1.20 Left: 1.18 (Vessel hardening > 1.4; Normal 0.9 - 1.4, Moderate 0.7 - 0.9, Severe 0.5-0.7) Toe Brachial Indices: Right: 0.85 Left: 0.70 IMPRESSION: Normal EDISON indices.
== END | disposition home or self-care (01) ==
LOC: RADUSWWP 12:39
PROVIDERS: ATTEND Family Medicine
DX: I73.9 Peripheral vascular disease, unspecified (principal); E78.5 Hyperlipidemia, unspecified; I10 Essential (primary) hypertension; E11.9 Type 2 diabetes mellitus without complications; R19.03 Right lower quadrant abdominal swelling, mass and lump
CPT/HCPCS: 93922